=== PATIENT | female | born 1950 | race Caucasian/White ===

== ENCOUNTER → 2016-10-27 | Outpatient (CLI) | payer OTHER, BC | LOC: FIMAGING 09:07 | PROVIDERS: ATTEND Internal Medicine | DX: Z12.31 Encounter for screening mammogram for malignant neoplasm of breast (principal) | CPT/HCPCS: G0202 ==

== ENCOUNTER 2017-04-25 16:52 | Inpatient (IN) | payer OTHER, BC ==
[2017-04-25] MEDS ORDERED: fentaNYL 100 MCG/2 ML INJ IVP ONE (16:59)
[2017-04-25] MEDS ORDERED: NS 1,000 ML IV ONE (16:59)
--- NOTE | 2017-04-25 17:05 | EDPHY ---
H & P Time Seen by Provider: 04/25/17 17:04 HPI/ROS: CHIEF COMPLAINT: Right hip pain following mechanical fall HISTORY OF PRESENT ILLNESS: The patient is brought in by paramedics after she sustained a right hip pain following a mechanical fall. She was accidentally knocked over by a horse. She landed squarely on her right hip. She did not strike her head or lose consciousness. She reportedly had a crawl approximately 0.25 mi to contact help. The patient received fentanyl in route by paramedics. She presents to the ED with complaints of 8/10 right hip pain. The patient denies associated numbness or weakness. The patient denies recent illness. She does have a history of aortic valve and mitral valve replacement. The patient has a history of lupus. She is not anticoagulated. REVIEW OF SYSTEMS: A comprehensive 10 point review of systems is otherwise negative aside from elements mentioned in the history of present illness. Source: Patient Exam Limitations: No limitations - Personal History Tetanus Vaccine Date: - Medical/Surgical History Hx Asthma: No Hx Chronic Respiratory Disease: Yes Hx Diabetes: No Hx Cardiac Disease: Yes Hx Renal Disease: No Hx Cirrhosis: No Hx Alcoholism: No Hx HIV/AIDS: No Hx Splenectomy or Spleen Trauma: No Other PMH: mitral valve replacement surgery, tricuspid valve replacement, lupus. ,chf, right lung injury in sugery, ulcer - Social History Smoking Status: Never smoked - Physical Exam Exam: General Appearance: Alert, mild distress secondary to pain Head: Atraumatic Eyes: Pupils equal, round, reactive ENT, Mouth: No hemotympanum, no oral trauma Neck: Nontender, trachea midline Respiratory: No chest wall tender, subcutaneous air, lungs clear bilaterally Cardiovascular: Regular rate and rhythm Abdomen: Abdomen is soft and nontender, pelvis stable Skin: No lacerations, No abrasion Back: No midline T/L/S pain Extremities: Right hip held in flexion, shortening appreciated, unable to range her right hip secondary to pain. 2+ dorsalis pedis and posterior tibial pulses appreciated Neurological: 5/5 strength noted throughout the right lower extremity with intact sensation Constitutional: Initial Vital Signs Temperature (C) 36.9 C 04/25/17 17:20 Heart Rate 88 04/25/17 17:20 Respiratory Rate 16 04/25/17 17:20 Blood Pressure 160/84 H 04/25/17 17:20 O2 Sat (%) 95 04/25/17 17:20 O2 Delivery Mode Room Air Allergies/Adverse Reactions: Sulfa (Sulfonamide Antibiotics) Allergy (Intermediate, Verified 02/11/15 11:43) Rash latex Allergy (Verified 09/24/14 18:07) ADHESIVE TAPE Allergy (Intermediate, Uncoded 09/24/14 18:07) Rash Home Medications: Medication Instructions Recorded Cholecalciferol Vit D3 [Vitamin D3 2,000 units PO DAILY 06/24/12 2000 units] Dexlansoprazole [DEXILANT] 60 mg PO DAILY 06/24/12 Estradiol [Vivelle-Dot 0.075MG (*)] 0.075 mg TD SUWE@06/24/12 Herbals/Supplements -Info Only 1 each PO AD 06/24/12 Hydroxychloroquine Sulfate 200 mg PO BID 06/24/12 [Plaquenil 200 mg (*)] cycloSPORINE 0.05% [Restasis Opht 1 drop EACHEYE BID 06/24/12 Drops(*)] Potassium Cl [Klor-Con 20 meq (*)] 20 meq PO BID 11/20/12 Ascorbic Acid [Vitamin C 500 mg 500 mg PO DAILY 09/24/14 (*)] Cyanocobalamin [Vitamin B12 (*)] 1,000 mcg PO DAILY 09/24/14 Estradiol [VAGIFEM] 10 mcg VG SUWE@09/24/14 Fluoxetine HCl [Prozac 40 mg] 40 mg PO DAILY 09/24/14 Furosemide [Lasix 40 MG (*)] 40 mg PO BID 09/24/14 Glucosamine Sulfate [Glucosamine 1,500 mg PO DAILY 09/24/14 Sulfate 500 MG (*)] Aspirin EC [Aspirin EC 81 mg (OTC)] 81 mg PO DAILY 02/11/15 Pregabalin [LYRICA] 100 mg PO DAILY 02/11/15 Medical Decision Making - Diagnostics EKG Interpretation: EKG: Complete interpretation has been separately recorded in the [employer] archive. Summary impression: Ventricularly paced rhythm Imaging Results: Imaging Impressions Chest X-Ray 04/25/17 16:59 Impression: 1. No active cardiopulmonary disease seen. 2. Pacemaker unit and cardiac valves in place. Hip X-Ray 04/25/17 17:00 Impression: 1. Fracture right femoral neck with proximal displacement of the distal component. 2. Mild hip joint space narrowing bilaterally. ED Course/Re-evaluation: ED course The patient presents to the ED with right hip pain following mechanical fall. The patient is noted to have a femoral neck fracture. The patient had an IV established. She received IV fentanyl and 1 mg of IV Ativan. Consultation was made with Dr. Dick Lee from Orthopedic surgery who reviewed the patient's x-rays and plans to take the patient to the operating room at 6:30 p.m. this evening. Consultation was made with Dr. Bubba Suarez at 5:40 p.m.., he will admit the patient to the hospital primarily. Preoperative EKG demonstrates a paced rhythm. Preoperative laboratory studies have been ordered. Chest x-ray as reviewed by myself demonstrates no evidence of acute disease. 6:30 p.m.: The patient will be transferred to the operating room for ORIF under the care of Dr. Lee. Database reviewed: CBC which [place] an [place] [address] likely secondary to demargination from pain. Chemistry panel demonstrates a CO2 of 15 otherwise is within normal limits. Coagulation studies are within normal limits. Differential Diagnosis: Differential diagnosis considered includes hip fracture, pelvic fracture, myofascial strain, pelvic hematoma, arrhythmia - Data Points Medications Given: Discontinued Medications Fentanyl (Sublimaze) 100 mcg IVP EDNOW ONE Stop: 04/25/17 17:00 Last Admin: 04/25/17 17:04 Dose: 100 mcg Sodium Chloride (Ns) 1,000 mls @ 0 mls/hr IV ONCE ONE; Wide Open PRN Reason: Protocol Stop: 04/25/17 17:00 Last Admin: 04/25/17 17:05 Dose: 1,000 mls Lorazepam (Ativan Injection) 1 mg IVP EDNOW ONE Stop: 04/25/17 17:33 Last Admin: 04/25/17 17:41 Dose: 1 mg Departure - Departure Disposition: [facility] Inpatient Acute Clinical Impression: Femoral neck fracture, Lupus, Aortic valve prosthesis present, History of mitral valve prosthesis Condition: Fair
[2017-04-25] MEDS ORDERED: LORazepam 2 MG/ML INJ IVP ONE (17:32)
--- NOTE | 2017-04-25 17:51 | CPEKG ---
Heart Rate: 79 RR Interval: 759 P-R Interval: 280 QRSD Interval: 148 QT Interval: 476 QTC Interval: 546 P [place]: 118 QRS [place]: 261 T Wave [place]: 78 EKG Severity - ABNORMAL ECG - EKG Impression: VENTRICULAR-PACED RHYTHM Electronically Signed By: Kunal Stone 27-Apr-2017 06:15:07
--- NOTE | 2017-04-25 18:33 | SOAPPROG ---
SOAP Progress Note Assessment/Plan: Assessment: Ashely is a pleasant 67 year old female who presents to the ER this afternoon after falling onto her right hip. She presented to the ER via EMT unable to weight bear and complaining of right hip pain. PE: Right leg is shortened TTP overlying the right leg Pain with gentle ROM + log roll Radiographs: AP pelvis shows displaced right femoral neck fracture Plan: Risks, benefits, alternatives to operative and non-operative treatment were discussed with the patient. Patient would like to proceed with surgical intervention. We will obtain medical clearance and patient will be taken to the operating room at its earliest convenience. 04/25/17 18:26 Objective: Vital Signs Temp Pulse Resp BP Pulse Ox 36.9 C 88 16 160/84 H 95 04/25/17 17:20 04/25/17 17:20 04/25/17 17:20 04/25/17 17:20 04/25/17 17:20 ICD10 Worksheet Patient Problems: Problems Problem Status Onset Chest pain Acute
[2017-04-25 18:37] LABS: % IMMATURE GRANULYOCYTES 0.6 % (0.0-1.1); ABSOLUTE IMMATURE GRANULOCYTES 0.08 10^3/uL (0.00-0.10); ADD DIFF? NO; ADD MORPH? NO; ADD SCAN? NO; ATYPICAL LYMPHOCYTE FLAG 0 (0-99); FRAGMENT RBC FLAG 0 (0-99); HEMATOCRIT 41.9 % (38.0-47.0); HEMOGLOBIN 14.4 g/dL (12.6-16.3); LEFT SHIFT FLG 0 (0-99); LIPEMIA HEMOLYSIS FLAG 90 (0-99); MEAN CELL HEMOGLOBIN CONCENTR. 34.4 g/dL (32.4-36.7); MEAN CELL VOLUME 95.9 fL (81.5-99.8); MEAN PLATELET VOLUME 10.5 fL (8.7-11.7); PLATELET CLUMPS FLAG 20 (0-99); PLATELET COUNT 141 10^3/uL (150-400); RED BLOOD CELL COUNT 4.37 10^6/uL (4.18-5.33); RED CELL DISTRIBUTION WIDTH 12.9 % (11.5-15.2)
[2017-04-25] MEDS ORDERED: LR 1,000 ML IV ONE (18:43)
[2017-04-25 18:48] LABS: INR 1.09 (0.83-1.16); PROTIME(PATIENT) 14.3 SEC (12.0-15.0)
[2017-04-25 18:49] LABS: APTT 25.6 SEC (23.0-38.0)
[2017-04-25] MEDS ORDERED: ceFAZolin 2 GM in NS 100 ML IV ONE (18:49)
[2017-04-25 18:50] LABS: ANION GAP 13 mEq/L (8-16); CALCIUM 8.7 mg/dL (8.5-10.4); CARBON DIOXIDE 15 mEq/l (22-31); CHLORIDE 110 mEq/L (97-110); CREATININE 1.1 mg/dL (0.6-1.0); GLOMERULAR FILTRATION RATE 50; GLUCOSE 111 mg/dL (70-100); POTASSIUM 4.4 mEq/L (3.5-5.2); SODIUM 138 mEq/L (134-144)
--- NOTE | 2017-04-25 18:59 | PDANEPAE ---
ANE History of Present Illness 67 yo for orif hip ANE Past Medical History - Cardiovascular History Hx Hypertension: Yes Hx Arrhythmias: Yes Hx Coronary Artery / Peripheral Vascular Disease: Yes Hx CHF / Valvular Disease: Yes - Pulmonary History Hx Oxygen in Use at Home: Yes O2 in Use at Home (L/minute): 2 Hx Sleep Apnea: Yes Pulmonary History Comment: 2 L AT NIGHT ONLY - Neurologic History Neurologic History Comment: LOWER RIGHT EXTREMITY NEUROPATHY - Endocrine History Hx Diabetes: No - Renal History Hx Renal Disorders: No - Liver History Hx Hepatic Disorders: No - Neurological & Psychiatric Hx Hx Neurological and Psychiatric Disorders: No - Cancer History Hx Cancer: No - Congenital Disorder History Hx Congenital Disorders: No - GI History Hx Gastrointestinal Disorders: Yes Gastrointestinal History Comment: CONSTIPATION, COLONOSCOPY NEGATIVE, GERD - Other Health History Other Health History: LUPUS, REYNAULD'D DX LAVONNE HANDS, SJOGREN'S SYNDROME - Chronic Pain History Chronic Pain: Yes (LUPUS) - Surgical History Prior Surgeries: PACER, HYSTERECTOMY, APPENDECTOMY, MITRAL VALVE AND TRICUSPID VALVE. ANE Review of Systems Review of Systems: - Exercise capacity METS (RN): 4 METS - Pacemaker Date Pacemaker Last Checked: 05/24/12 ANE Patient History - Allergies Allergies/Adverse Reactions: Sulfa (Sulfonamide Antibiotics) Allergy (Intermediate, Verified 02/11/15 11:43) Rash latex Allergy (Verified 09/24/14 18:07) ADHESIVE TAPE Allergy (Intermediate, Uncoded 09/24/14 18:07) Rash - Home Medications Home medications: home medication list seen and reviewed Home Medications: Cholecalciferol Vit D3 [Vitamin D3 2000 units] 2,000 units PO DAILY 06/24/12 [ Last Taken 02/10/15] Dexlansoprazole [DEXILANT] 60 mg PO DAILY 06/24/12 [Last Taken 02/10/15] Estradiol [Vivelle-Dot 0.075MG (*)] 0.075 mg TD SUWE@06/24/12 [Last Taken ] Herbals/Supplements -Info Only 1 each PO AD 06/24/12 [Last Taken 02/10/15] Hydroxychloroquine Sulfate [Plaquenil 200 mg (*)] 200 mg PO BID 06/24/12 [Last Taken 02/10/15] cycloSPORINE 0.05% [Restasis Opht Drops(*)] 1 drop EACHEYE BID 06/24/12 [Last Taken 02/10/15] Potassium Cl [Klor-Con 20 meq (*)] 20 meq PO BID 11/20/12 [Last Taken 02/10/15] Ascorbic Acid [Vitamin C 500 mg (*)] 500 mg PO DAILY 09/24/14 [Last Taken ] Cyanocobalamin [Vitamin B12 (*)] 1,000 mcg PO DAILY 09/24/14 [Last Taken ] Estradiol [VAGIFEM] 10 mcg VG SUWE@09/24/14 [Last Taken 02/10/15] Fluoxetine HCl [Prozac 40 mg] 40 mg PO DAILY 09/24/14 [Last Taken 02/10/15] Furosemide [Lasix 40 MG (*)] 40 mg PO BID 09/24/14 [Last Taken 02/10/15] Glucosamine Sulfate [Glucosamine Sulfate 500 MG (*)] 1,500 mg PO DAILY 09/24/14 [Last Taken 02/10/15] Aspirin EC [Aspirin EC 81 mg (OTC)] 81 mg PO DAILY 02/11/15 [Last Taken 02/10/15 ] Pregabalin [LYRICA] 100 mg PO DAILY 02/11/15 [Last Taken 02/10/15] - NPO status NPO Status: no food or drink >8 hours - Smoking Hx Smoking Status: Never smoked ANE Labs/Vital Signs - Labs Result Diagrams: 04/25/17 18:28 04/25/17 18:28 - Vital Signs Blood Pressure: 138/74 Heart Rate: 82 Respiratory Rate: 16 O2 Sat (%): 97 Height: 5 ft 2 in Weight: 56.699 kg ANE Physical Exam - Airway Neck exam: FROM Mallampati Score: Class 3 Mouth exam: normal dental/mouth exam - Pulmonary Pulmonary: no respiratory distress - Cardiovascular Cardiovascular: regular rate and rhythym - ASA Status ASA Status: III ANE Anesthesia Plan Anesthesia Plan: general endotracheal anesthesia
[2017-04-25] MEDS ORDERED: ceFAZolin 2 GM/SWFI 2 GM/20 ML SYR IVP ONE (19:00)
[2017-04-25] MEDS ORDERED: fentaNYL 250 MCG/5 ML INJ ONE (19:06)
[2017-04-25] MEDS ORDERED: PROPOFOL/EMULSION 500 MG/50 ML BOTTLE IV ONE (19:06)
--- NOTE | 2017-04-25 20:22 | GHP ---
[f rep st] HISTORY AND PHYSICAL DATE OF ADMISSION: 04/25/2017 CHIEF COMPLAINT: Fall with right hip fracture. HISTORY OF PRESENT ILLNESS: This is a 67-year-old female, who was feeding her horses when 1 whipped around and through her to the ground landing on her right hip. She was unable to bear weight on her leg afterwards. She does have a fracture there and is going in for an ORIF momentarily. The patient was in her usual state of health. There have been no acute issues. She denies any fevers or chills . She does have an extensive cardiac history, with a mitral valve and tricuspid valve replacement. 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 She also has a history of congestive heart failure and stage II kidney disease. She states that she does get some chest pain w hen she lifts heavy objects. She gets some shortness of breath going up stairs, but she is able to g o up stairs. She did have an angiogram done several years ago that was negative for any coronary dis ease. She denies any peripheral edema. No PND, orthopnea. She does use oxygen at night. She also has a history of lupus, and does get flares up from time to time. She takes prednisone for those flares and the last 1 being about 3 months ago. REVIEW OF SYSTEMS: A 10-point review of systems was obtained and other than stated above was negativ e. PAST MEDICAL HISTORY: 1. Status post mitral valve and tricuspid valve replacement. 2. Pacemaker placement. 3. CHF. The last echocardiogram that in 2014 showed an EF of 55% to 60%. She does usually sees a c ardiologist at [facility]. She also sees Dr. Aden. 4. Lupus. 5. Hypertension. 6. Right lower extremity neuropathy. 7. Stage II chronic kidney disease for which she sees Dr. Galvin. 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 Lives [place] in [facility]. FAMILY HISTORY: Significant for valvular heart disease. PHYSICAL EXAM: VITAL SIGNS: Afebrile, blood pressure is 138/74, heart rate 82, oxygen saturation 97 % on room air. GENERAL: The patient is well developed, no apparent distress. HEENT: Nonicteric sc lerae. Extraocular muscles intact. There is a slight malar rash. NECK: Supple. No thyromegaly. LUNGS: Good effort. Clear to auscultation bilaterally. CARDIOVASCULAR: Regular rate and rhythm. There is a 2/6 systolic murmur heard best at the left lower sternal border. ABDOMEN: Positive bowel sounds. Soft, nontender, nondistended. No hepatosplenomegaly. EXTREMITIES: No edema. Right leg is shortened and externally rotated. NEUROLOGIC: Alert and oriented x3. PSYCH: Normal affect. LABS: White blood cell count slightly elevated at 14, hemoglobin 14, platelets 141, creatinine is 1. 1. EKG personally reviewed and interpreted, shows ventricularly paced rhythm. Chest x-ray personally re viewed and interpreted, does not show any acute. ASSESSMENT: This is a 67-year-old female presenting with mechanical fall and right hip fracture. 1. Right hip fracture. The patient can proceed to surgery. Although she is higher than average ris k she is medically optimized and there is nothing else we would necessarily do. She is not in any ov ert heart failure. We will continue to watch closely postoperatively. 2. History of mitral valve and tricuspid valve replacement with congestive heart failure. We can se e there is an echo done at Dr. Aden's office recently. September repeat 1, although she does not have significant symptoms of congestive heart failure currently. She was on fairly large doses of diureti cs though. We will have to restart those fairly soon postoperatively. 3. History of lupus with chronic steroid usage. Consider stress dose steroids during the operation. Would probably not continue this afterwards. 4. Stage II chronic kidney disease. This is stable. 5. Deep venous thrombosis prophylaxis. Would start this tomorrow if okay with Surgery. /[id number]/MODL
[2017-04-25] MEDS ORDERED: PROPOFOL 200 MG/20 ML VIAL ONE (20:54)
[2017-04-25] MEDS ORDERED: ONDANSETRON 4 MG/2 ML VIAL IVP PRN ×2 (21:18→21:50)
[2017-04-25] MEDS ORDERED: fentaNYL 100 MCG/2 ML INJ IVP PRN (21:18)
[2017-04-25] MEDS ORDERED: NALOXONE HCL 0.4 MG/ML INJ IVP PRN (21:18)
[2017-04-25] MEDS ORDERED: SUGAMMADEX SODIUM 500 MG/5 ML VIAL IVP ONE (21:20)
[2017-04-25] MEDS ORDERED: LIDOCAINE 0.5% 50 ML SDV ONE (21:35)
[2017-04-25] MEDS ORDERED: BUPIVACAINE 0.5% 30 ML SDV ONE (21:35)
[2017-04-25] MEDS ORDERED: HYDROmorphone HCL/NS/PF 0.4 MG/2 ML SYR IVP PRN (21:50)
[2017-04-25] MEDS ORDERED: ONDANSETRON DISINTEGRATING 4 MG TAB PO PRN (21:50)
--- NOTE | 2017-04-25 22:14 | POSTANESTH ---
Post Anesthetic Evaluation Cardiovascular Status: Normal, Stable Respiratory Status: Normal, Stable Level of Consciousness/Mental Status: Can Participate in Eval Pain Control: Adequate, Prn Tx Ordered Nausea/Vomiting Control: Adequate, Prn Tx Ordered Complications Possibly Related to Anesthesia: None Noted
--- NOTE | 2017-04-25 22:53 | POSTOPPROG ---
Post Op Note Date of Operation: 04/25/17 Surgeon: Dick Lee Sinter Feeder: Paradise Rose PA-C Anesthesia: GET(General Endotracheal) Pre-op Diagnosis: right femoral neck fracture Post-op Diagnosis: right femoral neck fracture Procedure: right hip hemiarthroplasty Inf/Abcess present in the surg proc area at time of surgery?: No Depth: Deep Incisional (Fascial) EBL: 50-100
--- NOTE | 2017-04-25 22:59 | SOAPPROG ---
SOAP Progress Note Assessment/Plan: Assessment: Ashley is a pleasant 67 year old female now POD #0 from right hip hemiarthroplasty PE: Dressing clean and dry NV intact RLE Plan: 1. WBAT RLE with assistance 2. Posterior hip precautions. Abduction wedge to be in place while in bed 3. PT/OT for gait training, strengthening 4. Ancef x 2 doses 5. Reinforce dressing if needed 6. Patient will be admitted to hospitalist for medical management Objective: Vital Signs Temp Pulse Resp BP Pulse Ox 36.3 C 82 16 134/79 H 96 04/25/17 22:30 04/25/17 18:59 04/25/17 22:30 04/25/17 22:30 04/25/17 22:30 Laboratory Results 04/25/17 18:28 04/25/17 18:28 04/24/17 04/25/17 04/26/17 05:59 05:59 05:59 Intake Total 1775 Output Total 350 Balance 1425 PT 14.3 SEC (12.0-15.0) 04/25/17 18:28 INR 1.09 (0.83-1.16) 04/25/17 18:28 ICD10 Worksheet Patient Problems: Problems Problem Status Onset Aortic valve prosthesis present Acute Femoral neck fracture Acute History of mitral valve prosthesis Acute Lupus Acute Chest pain Acute
[2017-04-26] MEDS: HEPARIN 5,000 UNIT/0.5 ML SYR SC SCH ×3 (00:06→17:04)
[2017-04-26] MEDS: ceFAZolin 2 GM/DEXTROSE 100 ML IV SCH ×3 (00:14→12:30)
[2017-04-26 04:54] LABS: HEMOGLOBIN 12.3 g/dL (12.6-16.3)
--- NOTE | 2017-04-26 06:56 | GCON ---
[f rep st] CONSULTATION ORTHOPEDIC SURGERY CONSULTATION. DATE OF CONSULTATION: 04/26/2017 PREOPERATIVE DIAGNOSIS: Right hip femoral neck fracture. HISTORY OF PRESENT ILLNESS: This is a very pleasant 67-year-old female who sustained a fall earlier today and landed on her right hip. She was brought to the [facility] emergency department where she w as found to have a right hip femoral neck fracture which was completely displaced. ASSESSMENT AND PLAN: A 67-year-old female with a right femoral neck fracture, completely displaced. As such, we discussed the risks, benefits, risk of complications of both nonoperative and operative intervention. The patient fully understood the risks, benefits, alternatives, complications moving f orward with her treatment and wished to proceed with operative intervention in the form of right hip hemiarthroplasty. She signed informed consent for surgery and she will be taken to the operating hernandez m as soon as the OR is available. /[id number]/MODL
--- NOTE | 2017-04-26 07:11 | GOP ---
[f rep st] OPERATIVE REPORT PATIENT: KRISTIE TOBIAS DATE OF SERVICE: 04/25/17 PATIENT DATE OF : 1950 SURGEON: Dick Lee M.D. SKIDWAY WORKER: Paradise Rose PA-C Mrs. Cook assistance was medically necessary for patient positioning and the retraction of vital structures. ANESTHESIA: General PRE-OPERATIVE DIAGNOSES: Right femoral neck fracture (ICD-10 code S72.009A femoral neck fracture) POST-OPERATIVE DIAGNOSES: Right femoral neck fracture (ICD-10 code S72.009A femoral neck fracture) OPERATIVE PROCEDURES: CPT code 93098 - Right hip hemiarthroplasty EBL: 20cc COMPLICATIONS: None IMPLANTS: Styker Omnifit HFx 132 degree angle femoral stem, size # 5 , Unitrax head, 49 mm outer diameter, +0 mm neck adjustment sleeve, two packets of 40gram bone cement BRIEF CLINICAL NOTE: This is a very pleasant 67 old female with a significant history for a right femoral neck fracture (complete and displaced). As such, I discussed the risks, benefits, alternatives, and complications associated with both non-operative (specifically, observation.) and operative (specifically, right hip adriana-arthroplasty) forms of treatment. The patient fully understood the risks, benefits, alternatives, and complications associated with both forms of treatment and wished to proceed with operative intervention as outlined above. The patient has signed the informed consent form for surgery DESCRIPTION OF PROCEDURE: On the day of surgery, all the patient's questions were answered and the patient was transferred from the pre-operative holding area to the operating room where a formal Time out procedure was performed. The patient was identified by name, medical record number, social security number and date of . The patient's right lower extremity was identified as the correct extremity for surgery, with the right hip being identified as the correct portion of that extremity for the surgery. The anesthesia team then administered pre-operative antibiotics for prophylaxis. The patient was then placed into the lateral decubitus position with the operative side facing up. The lower extremity was then prepped and draped in the normal sterile fashion. A sterile marking pen was then utilized to bret out a standard posterolateral hip incision in line with the posterior one-third of the greater trochanter of the femur. Following this, a #10 blade was then used to incise the skin. Meticulous hemostasis was obtained in the subcutaneous plane utilizing Bovie cautery. The incision was then carried down to the level of the IT band and the fascia overlying the gluteus lexi. The IT band was then split longitudinally and this fascial incision was then carried in line with the fibers of the gluteus lexi muscle more proximally. The Charnley [place] retractor was then inserted underneath the level of the fascia only taking great care to protect the sciatic nerve. The femur was then internally rotated to put the short external rotators onto maximal stretch. The short external rotators were then released off of the posterior aspect of the greater trochanter. These were tagged along with the hip capsule for later repair utilizing a #2 Fiber Wire sutures. A cobra retractor was then inserted immediately inferior to the lesser trochanter and a Hohmann retractor was inserted over the superior aspect of the remaining femoral neck just proximal to the hip abductors. This allowed for excellent visualization of the fracture as well as the residual head and neck segment, which remained within the acetabulum. The head and neck segment was then removed utilizing a Somers elevator and tenaculum clamp. The head was then measured on the back table. The acetabulum was then inspected and cleaned of all soft tissue debris. The acetabulum appeared to be in excellent condition with no evidence of significant arthritis. The cutting guide for Omnifit HFx 132 degree angle stem was then applied to the remaining femoral neck the angle for the neck cut was marked with bovie cautery. Following this, a sagittal saw was then utilized to make the femoral neck cuts. Next, the hip skid retractor was inserted underneath the remaining femoral neck and the box osteotome was utilized to make space along the lateral aspect of the femoral canal proximally. Next, the starting reamer was utilized to enter the intramedullary canal and the lateralizing reamer was utilized to remove residual bone along the medial aspect of the greater trochanter. Next, the canal was reamed up to a size five reamer. We then began broaching broached up to an equivalent size broach for a cemented stem. The last broach provided for excellent rotational control inside of the proximal femoral metaphysis. In addition, the final broach allowed for a slight increase in the patient's normal anteversion. With the final size broach in place, a +0-mm neck and a 49 -mm head was applied for trialing purposes. Trialing in the position of sleep and with the hip in 90 degrees of flexion and the knee in 90 degrees of flexion with increasing amounts of internal rotation both demonstrated excellent stability. In addition, the shuck test demonstrated minimal inferior translation and trialing with the hip in full extension and the knee in 90 degrees of flexion demonstrated minimal tension on the quadriceps. Following these trialing maneuvers, a PA pelvis radiograph was obtained to assess for leg length. This radiograph demonstrated excellent approximation of leg length equivalent to the contralateral side based on measuring from the lesser trochanter. As such, the size five stem was selected with a +0 -mm neck and a 49 -mm diameter head. Next, the intramedullary canal was measured for correct sizing of the distal centralizer. The appropriately sized cement restrictor was then inserted into the intramedullary canal at a depth of 2 cm distal to the anticipated position of the stem tip. Following this, the canal was then copiously irrigated with sterile normal saline mixed with bacitracin. The canal was then cleaned and dried with vaginal tapes. During this time, two bags of 40gram bone cement were mixed. The cement was then injected in a retrograde fashion with pressurization. With the canal completely full of cement, the prosthesis was then inserted into the canal maintaining the anteversion which had been created with broaching. The prosthesis was held in place until the cement was completely hardened. All excess cement was removed from surrounding the prosthesis. Following this, the head was then impacted onto the Ramon taper. The hip was then reduced and once again trialed. Final trialing on the table demonstrated excellent stability and range of motion in all positions. Following this, the wound was then copiously irrigated with sterile normal saline. A 2.5-mm drill was then utilized to drill two holes through the posterior aspect of the greater trochanter. The suture previously used to tag the short external rotators and posterior hip capsule were then passed through these two drill holes and tied over a bone bridge along the posterolateral aspect of the greater trochanter. This provided for an excellent repair of the short external rotators, as well as the posterior hip capsule. The wound was then once again copiously irrigated with sterile normal saline, and the fascial plane was then re-approximated utilizing 0 Vicryl sutures. Following this, the subcutaneous plane was re-approximated with buried interrupted 2-0 Vicryl sutures and the the skin was closed with surgical jesus. The skin was cleaned with sterile normal saline and dried. A Xeroform gauze dressing was then applied, followed by a dry sterile dressing, followed by Ioban. Following this, the patient was then placed into an abduction wedge splint and was then transferred from the operating room table to the postoperative gurney and transferred from the operating room to the post-anesthesia care unit in stable condition. In PACU, a PA pelvis radiograph was obtained which demonstrated a concentrically reduced right hip adriaan-arthroplasty with excellent positioning of the all components and a uniform cement mantle. In addition, leg length appeared equivalent to the contralateral side. POSTOPERATIVE PLAN: The patient will remain in the abduction wedge anytime while in bed. The patient will be WBAT on the right lower extremity with posterior hip precautions. Therapy will begin tomorrow to encourage early mobilization following surgery. /[id number]/MODL MTDD
[2017-04-26] MEDS: oxyCODONE IR 5 MG TAB PO PRN ×3 (08:18→16:15)
--- NOTE | 2017-04-26 11:31 | ASMTCMCOM ---
FAUSTINO Note FAUSTINO Note Notes: Pt is post op day#1 after R hip hemiarthroplasty. Met w/pt and she is anticipating having HHC for PT initially. She lives up [facility] with her . She thought she had [facility] 4years ago after O[facility] but I spoke w/[facility] and they did not have records of having her as pt. However, they will see if they can service her in that area and get back to us. Our records from November 2012 show that she went home w/[facility] but I spoke w/them and they did not have records of having her as pt. PT recommendation pending. If pt needs home PT and [facility] cannot service her area will have to look for other HHC. FAUSTINO w/f. Date Signed: 04/26/2017 11:31 AM Electronically Signed By:Ema Li RN
--- NOTE | 2017-04-26 12:16 | PDMN ---
Medical Necessity Medical necessity: est los>2mn for r hip femoral neck fx r/t mechanical fall, requiring [id number] comorbid lupus on chronic steroid use, CKD, hx MVR, TVR; per order and H&P 04/25/17
--- NOTE | 2017-04-26 15:59 | HOSPPROG ---
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 pain: OK add scheduled tylenol prn narcotics add celebrex valvular heart disease: bioprosthetic valves restart lasix lupus: continue plaquenil proph: change to lmwh diispo: inpt Subjective: pain OK Objective: Vital Signs Temp Pulse Resp BP Pulse Ox 36.6 C 87 16 121/65 H 90 L 04/26/17 11:36 04/26/17 11:36 04/26/17 11:36 04/26/17 11:36 04/26/17 11:36 Laboratory Results 04/26/17 04:15 04/25/17 18:28 04/25/17 04/26/17 04/27/17 05:59 05:59 05:59 Intake Total 1875 Output Total 625 Balance 1250 PT 14.3 SEC (12.0-15.0) 04/25/17 18:28 INR 1.09 (0.83-1.16) 04/25/17 18:28 - Physical Exam Constitutional: no apparent distress, appears nourished Eyes: PERRL, anicteric sclera Ears, Nose, Mouth, Throat: moist mucous membranes, hearing normal Cardiovascular: regular rate and rhythym, no murmur, rub, or gallop Respiratory: no respiratory distress, no rales or rhonchi Gastrointestinal: normoactive bowel sounds, soft, non-tender abdomen Genitourinary: no bladder fullness, No davidson in urethra Skin: warm, normal color Musculoskeletal: full muscle strength, other (R thigh no hematoma) Neurologic: AAOx3, sensation intact bilaterally ICD10 Worksheet Patient Problems: Problems Problem Status Onset Aortic valve prosthesis present Acute Femoral neck fracture Acute History of mitral valve prosthesis Acute Lupus Acute Chest pain Acute
[2017-04-26] MEDS ORDERED: ZOLPIDEM TARTRATE 5 MG TAB PO PRN (16:10)
[2017-04-26] MEDS: ENOXAPARIN 40 MG/0.4 ML SYR SC SCH (16:14)
[2017-04-26] MEDS: ACETAMINOPHEN 500 MG TAB PO SCH ×2 (16:15→20:38)
[2017-04-26] MEDS: FUROSEMIDE 40 MG TAB PO SCH (17:31)
--- NOTE | 2017-04-26 17:33 | ASMTCMCOM ---
CM Note CM Note Notes: PT is recommending C and she may possibly need OT as well. CM unable to find agency today who would go up to [facility] where pt lives. The following agencies said they cannot provide service: Saad Jordan [facility], [facility], [facility], [facility], [facility], [facility], [facility]. CM will continue tomorrow to try to find agency. Date Signed: 04/26/2017 05:33 PM Electronically Signed By:Ema Li RN
--- NOTE | 2017-04-26 17:37 | ASMTCMCOM ---
CM Note CM Note Notes: Also heard back from Byron at [facility]- they are also unable to accept b/c of location of this pt's residence. Date Signed: 04/26/2017 05:36 PM Electronically Signed By:Ema Li RN
[2017-04-26] MEDS ORDERED: POTASSIUM CL 20 MEQ TAB PO SCH (18:00)
[2017-04-26] MEDS: HYDROXYCHLOROQUINE SULFATE 200 MG TAB PO SCH (20:38)
[2017-04-26] MEDS: cycloSPORINE 0.05% 30 DROPERETTE/BOX EACHEYE SCH (20:39)
[2017-04-27 04:39] VITALS: TEMP 97.8
[2017-04-27] MEDS: ACETAMINOPHEN 500 MG TAB PO SCH (05:21)
[2017-04-27 07:22] VITALS: BP 124/65; PULSE 74; RESP 15; O2SAT 100
[2017-04-27] MEDS ORDERED: ASPIRIN EC 81 MG TAB PO SCH (08:00)
--- NOTE | 2017-04-27 08:25 | SOAPPROG ---
CHARLIE Progress Note Assessment/Plan: Assessment: Ashley is a pleasant 67 year old female now POD #2 from right hip hemiarthroplasty. She is doing very well and is having minimal pain. She has been up with physical therapy multiple times and is able to ambulate with the walker PE: Dressing clean and dry NV intact RLE No pain with calf compression DF, PF intact Plan: 1. WBAT RLE with assistance 2. Posterior hip precautions. Abduction wedge to be in place while in bed. We can transition her to a smaller abduction wedge 3. PT/OT for gait training, strengthening 4. Reinforce dressing if needed. Keep dressing clean and dry 5. Prescription for pain medication in patient chart 6. Plan for discharge back home with home therapy. Follow up with Dr. Lee's office in 2 weeks for repeat radiographs, wound check, and staple removal. 04/27/17 08:23 Objective: Vital Signs Temp Pulse Resp BP Pulse Ox 36.6 C 74 15 124/65 H 100 04/27/17 07:21 04/27/17 07:21 04/27/17 07:21 04/27/17 07:21 04/27/17 07:21 Laboratory Results 04/26/17 04:15 04/25/17 18:28 04/26/17 04/27/17 04/28/17 05:59 05:59 05:59 Intake Total 1875 300 Output Total 625 Balance 1250 300 PT 14.3 SEC (12.0-15.0) 04/25/17 18:28 INR 1.09 (0.83-1.16) 04/25/17 18:28 ICD10 Worksheet Patient Problems: Problems Problem Status Onset Aortic valve prosthesis present Acute Chest pain Acute Femoral neck fracture Acute History of mitral valve prosthesis Acute Lupus Acute
[2017-04-27] MEDS: HYDROXYCHLOROQUINE SULFATE 200 MG TAB PO SCH (08:58)
[2017-04-27] MEDS: FUROSEMIDE 40 MG TAB PO SCH (09:00)
[2017-04-27] MEDS ORDERED: CHOLECALCIFEROL VIT D3 2,000 UNITS TAB/CAP PO SCH (09:00)
[2017-04-27] MEDS ORDERED: GLUCOSAMINE SULF 500 MG CAP PO SCH (09:00)
[2017-04-27] MEDS ORDERED: FLUoxetine 20 MG CAP PO SCH (09:00)
[2017-04-27] MEDS ORDERED: ASCORBIC ACID 500 MG TAB PO SCH (09:00)
[2017-04-27] MEDS ORDERED: LISINOPRIL 5 MG TAB PO SCH (09:00)
[2017-04-27] MEDS ORDERED: CYANO/VITAMIN B12 1000 MCG TAB PO SCH (09:00)
[2017-04-27] MEDS: cycloSPORINE 0.05% 30 DROPERETTE/BOX EACHEYE SCH (09:03)
[2017-04-27] MEDS: ENOXAPARIN 40 MG/0.4 ML SYR SC SCH (09:03)
--- NOTE | 2017-04-27 09:22 | HOSPPROG ---
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 pain ok Objective: Vital Signs Temp Pulse Resp BP Pulse Ox 36.6 C 74 15 124/65 H 100 04/27/17 07:21 04/27/17 07:21 04/27/17 07:21 04/27/17 09:00 04/27/17 07:21 Laboratory Results 04/26/17 04:15 04/25/17 18:28 04/26/17 04/27/17 04/28/17 05:59 05:59 05:59 Intake Total 1875 300 Output Total 625 Balance 1250 300 PT 14.3 SEC (12.0-15.0) 04/25/17 18:28 INR 1.09 (0.83-1.16) 04/25/17 18:28 - Physical Exam Constitutional: no apparent distress, appears nourished Eyes: PERRL, anicteric sclera Ears, Nose, Mouth, Throat: moist mucous membranes, hearing normal Cardiovascular: regular rate and rhythym, no murmur, rub, or gallop Respiratory: no respiratory distress, no rales or rhonchi Gastrointestinal: normoactive bowel sounds, soft, non-tender abdomen Genitourinary: No davidson in urethra Skin: warm, normal color Musculoskeletal: full muscle strength Neurologic: AAOx3 ICD10 Worksheet Patient Problems: Problems Problem Status Onset Aortic valve prosthesis present Acute Femoral neck fracture Acute History of mitral valve prosthesis Acute Lupus Acute Chest pain Acute
--- NOTE | 2017-04-27 10:11 | PDIAF ---
- Diagnosis Diagnosis: hip fracture Code Status: Full Code - Medication Management Discharge Medications: Medications to Continue on Transfer Cholecalciferol Vit D3 [Vitamin D3 2000 units] 2,000 units PO DAILY 06/24/12 [ Last Taken 04/25/17] Estradiol [Vivelle-Dot 0.075MG (*)] 0.075 mg TD SUWE@06/24/12 [Last Taken ] Herbals/Supplements -Info Only 1 each PO AD 06/24/12 [Last Taken 02/10/15] Hydroxychloroquine Sulfate [Plaquenil 200 mg (*)] 200 mg PO BID 06/24/12 [Last Taken 04/25/17 09:00] cycloSPORINE 0.05% [Restasis Opht Drops(*)] 1 drop EACHEYE BID 06/24/12 [Last Taken 04/25/17 09:00] Potassium Cl [Klor-Con 20 meq (*)] 20 meq PO DAILY18 11/20/12 [Last Taken ] Ascorbic Acid [Vitamin C 500 mg (*)] 500 mg PO DAILY 09/24/14 [Last Taken ] Cyanocobalamin [Vitamin B12 (*)] 1,000 mcg PO DAILY 09/24/14 [Last Taken ] Estradiol [VAGIFEM] 10 mcg VG SUWE@09/24/14 [Last Taken 04/25/17] Fluoxetine HCl [Prozac 40 mg] 40 mg PO DAILY 09/24/14 [Last Taken 04/25/17] Furosemide [Lasix 40 MG (*)] 40 mg PO BID@09/24/14 [Last Taken 04/25/17 09 :00] Glucosamine Sulfate [Glucosamine Sulfate 500 MG (*)] 1,500 mg PO DAILY 09/24/14 [Last Taken 04/25/17] Aspirin EC [Aspirin EC 81 mg (*)] 81 mg PO MWF 02/11/15 [Last Taken 04/25/17] Lisinopril [Zestril 2.5 mg (*)] 2.5 mg PO DAILY 04/26/17 [Last Taken 04/25/17] Acetaminophen [Tylenol ES 500 mg (*)] 1,000 mg PO Q8 tab 04/27/17 [Last Taken Unknown] Enoxaparin [Lovenox 40 MG (*)] 40 mg SC DAILY #28 syr 04/27/17 [Last Taken Unknown] oxyCODONE IR [Oxycodone Ir (*)] 5 - 10 mg PO Q4HRS PRN #24 tab 04/27/17 [Last Taken Unknown] Discharge Medications: Refer to the Discharge Home Medication list for PRN reason. - Orders Services needed: Home Care, Physical Therapy, Occupational Therapy Home Care Face to Face: I certify that this patient was under my care and that I had the required [id number] encounter meeting the encounter requirements on the discharge day. My findings support the fact that the patient is homebound as defined in Home Care Face to Face Continued: CMS Chapter 7 Medicare Benefits Manual 30.1.1 , The condition of the patient is such that there exists a normal inability to leave home and consequently, leaving home would require a considerable and taxing effort. - Follow Up Care Current Providers and Referrals: Dick Lee MD [Medical Doctor] - Patient,NotPresent [Unknown] - As per Instructions
--- NOTE | 2017-04-27 10:25 | GDS ---
[f rep st] DISCHARGE SUMMARY DISCHARGE DIAGNOSES: 1. Right femoral neck fracture. 2. History of mitral and tricuspid valve replacement. 3. Pacemaker placement. 4. Valvular congestive heart failure. 5. Lupus, mainly rash and joint pain. Please see admission history and physical by Dr. Dionne Suarez. Patient presented with a fall secondary to riding a horse. She underwent operative repair. She is a fit and strong relatively young woman s o she has done well with physical and occupational therapy. She is discharged home today. She was g tierra 28 days Lovenox and prescription for oxycodone and I have recommended for scheduled Tylenol and MiraLAX. /[id number]/MODL
[2017-04-27] MEDS: oxyCODONE IR 5 MG TAB PO PRN (10:48)
--- NOTE | 2017-04-27 12:12 | ASDISCHSUM ---
Discharge Information Plan Status:Home with Home Health Medically Cleared to Leave:04/26/2017 Discharge Date:04/26/2017 CM D/C Disposition:Home Health Service ADT D/C Disposition: Projected Discharge Date:04/27/2017 11:00 AM Transportation at D/C:Family Discharge Delay Reason: Follow-Up Date:04/27/2017 11:00 AM Discharge Slot: Final Diagnosis: Placement Information Referral Type:*Home Health Care Services Referral ID:[id number] Provider Name:[facility] Address 1:[address] [address] Address 2: City:[place] Selection Factors: State:[place] Patient Contact Information Contact Name:RAFAT Relationship: Address:[address] City:[facility] Phone: State/Zip Code:[place] [address] Email: Financial Information Financial Class: Primary Plan Desc:MEDICARE INPATIENT Primary Plan Number:[id number] Secondary Plan Desc:[facility] Secondary Plan Number:[id number] Assessment Information [facility] CM Progress Note CM Note CM Note Notes: Pt is post op day#1 after R hip hemiarthroplasty. Met w/pt and she is anticipating having HHC for PT initially. She lives up [facility] with her . She thought she had [facility] 4years ago after OHS but I spoke w/Tresa and they did not have records of having her as pt. However, they will see if they can service her in that area and get back to us. Our records from November 2012 show that she went home w/[facility] but I spoke w/brittany and they did not have records of having her as pt. PT recommendation pending. If pt needs home PT and [facility] cannot service her area will have to look for other HHC. CM w/f. Date Signed: 04/26/2017 11:31 AM Electronically Signed By:Ema Li RN [facility] CM Progress Note CM Note CM Note Notes: PT is recommending [facility] and she may possibly need OT as well. CM unable to find agency today who would go up to [facility] where pt lives. The following agencies said they cannot provide service: [facility]ad Jordan [facility], [facility], [facility], [facility], [facility], [facility], [facility]. CM will continue tomorrow to try to find agency. Date Signed: 04/26/2017 05:33 PM Electronically Signed By:Ema Li RN [facility] CM Progress Note CM Note CM Note Notes: Also heard back from Byron at [facility]- they are also unable to accept b/c of location of this pt's residence. Date Signed: 04/26/2017 05:36 PM Electronically Signed By:Ema Li RN Intervention Information Intervention Type:*IM-Signed Date of Service:04/27/2017 11:02 AM Patient Type:Inpatient Staff Member:Rosa Melton Hours: Discipline: Severity: Comment:
[2017-04-29] MEDS ORDERED: ESTRADIOL VIVELLE 0.075 MG PATCH TD SCH (09:00)
[2017-04-29] MEDS ORDERED: Estradiol [Vagifem] 10 MCG VG SCH (09:00)
== END 2017-04-27 12:51 | disposition home or self-care (01) | DRG 470 ==
LOC: EDUNIT# → F3N 22:58
PROVIDERS: ADMIT Internal Medicine; ATTEND Internal Medicine
PROC: 0SRR019 Replacement of Right Hip Joint, Femoral Surface with Metal Synthetic Substitute, Cemented, Open Approach (ICD-10-PCS; principal; 2017-04-25 18:30)
DX: S72.001A Fracture of unspecified part of neck of right femur, initial encounter for closed fracture (principal); W55.12XA Struck by horse, initial encounter; Y93.K9 Activity, other involving animal care; Y92.71 Barn as the place of occurrence of the external cause; Y99.8 Other external cause status; I50.9 Heart failure, unspecified; Z95.3 Presence of xenogenic heart valve; Z95.0 Presence of cardiac pacemaker; I12.9 Hypertensive chronic kidney disease with stage 1 through stage 4 chronic kidney disease, or unspecified chronic kidney disease; N18.2 Chronic kidney disease, stage 2 (mild); M32.9 Systemic lupus erythematosus, unspecified
CPT/HCPCS: 96374; 97116-GP; 97161-GP; 97166-GO; 97535-GO; C1713; G8978-GP-CK; G8979-GP-CI; G8980-GP-CI; G8987-GO-CJ; G8988-GO-CI; G8989-GO-CI; J0690; J1650; J2060; J2704; J3010

== ENCOUNTER → 2017-10-12 | Outpatient (CLI) | payer OTHER, BC | LOC: FIMAGING 08:34 | PROVIDERS: ATTEND Internal Medicine Rheumatology | DX: Z13.820 Encounter for screening for osteoporosis (principal); M85.89 Other specified disorders of bone density and structure, multiple sites; Z78.0 Asymptomatic menopausal state ==

== ENCOUNTER → 2017-10-30 | Outpatient (CLI) | payer OTHER, BC | LOC: FIMAGING 08:38 | PROVIDERS: ATTEND Internal Medicine | DX: Z12.31 Encounter for screening mammogram for malignant neoplasm of breast (principal); Z80.3 Family history of malignant neoplasm of breast ==

== ENCOUNTER → 2017-11-13 | Outpatient (CLI) | payer OTHER, BC | LOC: FIMAGING 08:59 | PROVIDERS: ATTEND Internal Medicine | DX: Z03.89 Encounter for observation for other suspected diseases and conditions ruled out (principal); N60.01 Solitary cyst of right breast ==

== ENCOUNTER 2018-03-07 19:24 | Emergency (ER) | payer OTHER, BC ==
[2018-03-07] MEDS ORDERED: NS 1,000 ML IV ONE (19:57)
--- NOTE | 2018-03-07 19:59 | EDPHY ---
H & P Stated Complaint: bladder spasm & R Flank Time Seen by Provider: 03/07/18 19:46 HPI/ROS: CHIEF COMPLAINT: Right flank pain HISTORY OF PRESENT ILLNESS: Patient is a 67-year-old female who comes to the emergency department complaining of right flank pain as well as chills for the last 2 days. No dysuria. She has had increased frequency. She has a history of appendectomy and total hysterectomy. Also history of lupus and mitral tricuspid valve replacement with bovine heart valves. She had some kidney damage with the bypass surgery. No rashes. No chest pain or shortness of breath. No fever. No GI symptoms. Severity: Moderate Modifying factors: None REVIEW OF SYSTEMS: Constitutional: See HPI EENTM: denies: blurred vision, double vision, nose congestion Respiratory: denies: cough, shortness of breath Cardiac: denies: chest pain, irregular heart rate, lightheadedness, palpitations Gastrointestinal/Abdominal: denies: abdominal pain, diarrhea, nausea, vomiting, blood streaked stools Genitourinary: See HPI Musculoskeletal: denies: joint pain, muscle pain Skin: denies: lesions, rash, jaundice, bruising Neurological: denies: headache, numbness, paresthesia, tingling, dizziness, weakness Hematologic/Lymphatic: denies: blood clots, easy bleeding, easy bruising Immunologic/allergic: denies: HIV/AIDS, transplant 10 systems reviewed and negative except as noted EXAM: GENERAL: Well-appearing, well-nourished and in no acute distress. HEAD: Atraumatic, normocephalic. EYES: Pupils equal round and reactive to light, extraocular movements intact, sclera anicteric, conjunctiva are normal. ENT: TMs normal, nares patent, oropharynx clear without exudates. Moist mucous membranes. NECK: Normal range of motion, supple without lymphadenopathy or JVD. LUNGS: Breath sounds clear to auscultation bilaterally and equal. No wheezes rales or rhonchi. HEART: Regular rate and rhythm without murmurs, rubs or gallops. ABDOMEN: Soft, nontender, normoactive bowel sounds. No guarding, no rebound. No masses appreciated. BACK: No CVA tenderness, no spinal tenderness, step-offs or deformities EXTREMITIES: Normal range of motion, no pitting or edema. No clubbing or cyanosis. NEUROLOGICAL: Cranial nerves II through XII grossly intact. Normal speech, normal gait. 5/5 strength, normal movement in all extremities, normal sensation , normal reflexes PSYCH: Normal mood, normal affect. SKIN: Warm, dry, normal turgor, no visible rashes or lesions. Source: Patient Exam Limitations: No limitations - Personal History Current Tetanus/Diphtheria Vaccine: Unsure Current Tetanus Diphtheria and Acellular Pertussis (TDAP): Unsure Tetanus Vaccine Date: - Medical/Surgical History Hx Asthma: No Hx Chronic Respiratory Disease: Yes Hx Diabetes: No Hx Cardiac Disease: Yes Hx Renal Disease: No Hx Cirrhosis: No Hx Alcoholism: No Hx HIV/AIDS: No Hx Splenectomy or Spleen Trauma: No Other PMH: mitral valve replacement surgery, tricuspid valve replacement, lupus. ,chf, right lung injury in sugery, ulcer, stage II kidney disease - Family History Significant Family History: No pertinent family hx - Social History Smoking Status: Never smoked Alcohol Use: Sober Drug Use: None Constitutional: Initial Vital Signs Temperature (C) 37 C 03/07/18 19:26 Heart Rate 93 03/07/18 19:26 Respiratory Rate 16 03/07/18 19:26 Blood Pressure 147/82 H 03/07/18 19:26 O2 Sat (%) 97 03/07/18 19:26 O2 Delivery Mode Room Air Allergies/Adverse Reactions: Sulfa (Sulfonamide Antibiotics) Allergy (Intermediate, Verified 02/11/15 11:43) Rash latex Allergy (Verified 09/24/14 18:07) ADHESIVE TAPE Allergy (Intermediate, Uncoded 09/24/14 18:07) Rash Home Medications: Medication Instructions Recorded Cholecalciferol Vit D3 [Vitamin D3 2,000 units PO DAILY 06/24/12 2000 units] Estradiol [Vivelle-Dot 0.075MG (*)] 0.075 mg TD SUWE@09 06/24/12 Herbals/Supplements -Info Only 1 each PO AD 06/24/12 Hydroxychloroquine Sulfate 200 mg PO BID 06/24/12 [Plaquenil 200 mg (*)] cycloSPORINE 0.05% [Restasis Opht 1 drop EACHEYE BID 06/24/12 Drops(*)] Potassium Cl [Klor-Con 20 meq (*)] 20 meq PO DAILY18 11/20/12 Ascorbic Acid [Vitamin C 500 mg 500 mg PO DAILY 09/24/14 (*)] Cyanocobalamin [Vitamin B12 (*)] 1,000 mcg PO DAILY 09/24/14 Estradiol [VAGIFEM] 10 mcg VG SUWE@09/24/14 Fluoxetine HCl [Prozac 40 mg] 40 mg PO DAILY 09/24/14 Furosemide [Lasix 40 MG (*)] 40 mg PO BID@,09/24/14 Glucosamine Sulfate [Glucosamine 1,500 mg PO DAILY 09/24/14 Sulfate 500 MG (*)] Aspirin EC [Aspirin EC 81 mg (*)] 81 mg PO MWF 02/11/15 Lisinopril [Zestril 2.5 mg (*)] 2.5 mg PO DAILY 04/26/17 Acetaminophen [Tylenol ES 500 mg 1,000 mg PO Q8 tab 04/27/17 (*)] Enoxaparin [Lovenox 40 MG (*)] 40 mg SC DAILY #28 syr 04/27/17 oxyCODONE IR [Oxycodone Ir (*)] 5 - 10 mg PO Q4HRS PRN #24 tab 04/27/17 Cephalexin [Keflex] 500 mg PO TID #30 cap 03/07/18 morphINE IR [morphINE IR 15 mg (*)] 15 mg PO Q3-4PRN PRN #10 tab 03/07/18 Medical Decision Making ED Course/Re-evaluation: Patient has urinary tract infection and likely pyelo. She is not febrile. Her renal function is better than baseline. I will give her dose of Rocephin here in the ER and Keflex take at home. She states that she is not supposed to take NSAIDs or Tylenol. I will give her a short dose of morphine IR. I cautioned her to use it sparingly for a variety of reasons. She and her understand and agree with this plan. We discussed indications for returning to the ER. Differential Diagnosis: Partial list of the Differential diagnosis considered include but were not limited to; urinary tract infection, pyelonephritis and although unlikely based on the history and physical exam, I also considered kidney stone, biliary disease, obstruction. I discussed these differential diagnoses and the plan with the patient as well as the usual and expected course. The patient understands that the diagnosis is provisional and that in medicine we are not always correct and that further workup is often warranted. Usual and customary warnings were given. All of the patient's questions were answered. The patient was instructed to return to the emergency department should the symptoms at all worsen or return, otherwise to followup with the physician as we discussed. - Data Points Laboratory Results: Laboratory Results 03/07/18 19:55 03/07/18 19:55 03/07/18 03/07/18 03/07/18 19:55 19:55 19:55 WBC 6.82 10^3/uL 10^3/uL (3.80-9.50) RBC 5.06 10^6/uL 10^6/uL (4.18-5.33) Hgb 16.0 g/dL g/dL (12.6-16.3) Hct 48.6 % H % (38.0-47.0) MCV 96.0 fL fL (81.5-99.8) MCH 31.6 pg pg (27.9-34.1) MCHC 32.9 g/dL g/dL (32.4-36.7) RDW 13.5 % % (11.5-15.2) Plt Count 223 10^3/uL 10^3/uL (150-400) MPV 10.3 fL fL (8.7-11.7) Neut % (Auto) 61.7 % % (39.3-74.2) Lymph % (Auto) 25.2 % % (15.0-45.0) [place] % (Auto) 10.0 % % (4.5-13.0) Eos % (Auto) 1.8 % % (0.6-7.6) Baso % (Auto) 1.2 % % (0.3-1.7) Nucleat RBC Rel Count 0.0 % % (0.0-0.2) Absolute Neuts (auto) 4.21 10^3/uL 10^3/uL (1.70-6.50) Absolute Lymphs (auto) 1.72 10^3/uL 10^3/uL (1.00-3.00) Absolute Monos (auto) 0.68 10^3/uL 10^3/uL (0.30-0.80) Absolute Eos (auto) 0.12 10^3/uL 10^3/uL (0.03-0.40) Absolute Basos (auto) 0.08 10^3/uL 10^3/uL (0.02-0.10) Absolute Nucleated RBC 0.00 10^3/uL 10^3/uL (0-0.01) Immature Gran % 0.1 % % (0.0-1.1) Immature Gran # 0.01 10^3/uL 10^3/uL (0.00-0.10) Sodium 137 mEq/L mEq/L (135-145) Potassium 4.1 mEq/L mEq/L (3.3-5.0) Chloride 99 mEq/L mEq/L (97-110) Carbon Dioxide 28 mEq/l mEq/l (22-31) Anion Gap 10 mEq/L mEq/L (6-14) BUN 18 mg/dL mg/dL (7-23) Creatinine 1.0 mg/dL mg/dL (0.6-1.0) Estimated GFR 55 Glucose 86 mg/dL mg/dL (70-100) Calcium 10.1 mg/dL mg/dL (8.5-10.4) Total Bilirubin 1.1 mg/dL mg/dL (0.1-1.4) Conjugated Bilirubin 0.1 mg/dL mg/dL (0.0-0.5) Unconjugated Bilirubin 1.0 mg/dL mg/dL (0.0-1.1) AST 30 IU/L IU/L (14-46) ALT 26 IU/L IU/L (9-52) Alkaline Phosphatase 122 IU/L IU/L (38-126) Total Protein 7.7 g/dL g/dL (6.3-8.2) Albumin 4.8 g/dL g/dL (3.5-5.0) Lipase 121 IU/L IU/L (23-300) Urine Color SHIRLEY Urine Appearance CLEAR Urine pH 5.0 (5.0-7.5) Ur Specific [place] 1.021 (1.002-1.030) Urine Protein 1+ H (NEGATIVE) Urine Ketones NEGATIVE (NEGATIVE) Urine Blood NEGATIVE (NEGATIVE) Urine Nitrate POSITIVE H (NEGATIVE) Urine Bilirubin NEGATIVE (NEGATIVE) Urine Urobilinogen 4.0 EU H EU (0.2-1.0) Ur Leukocyte Esterase NEGATIVE (NEGATIVE) Urine RBC 5-10 /hpf H /hpf (0-3) Urine WBC 25-50 /hpf H /hpf (0-3) Ur Epithelial Cells TRACE /lpf /lpf (NONE-1+) Urine Bacteria TRACE /hpf H /hpf (NONE SEEN) Urine Mucus 2+ /lpf H /lpf (NONE-1+) Urine Glucose NEGATIVE (NEGATIVE) Medications Given: Discontinued Medications Hydromorphone HCl (Dilaudid) 0.5 mg IVP EDNOW ONE Stop: 03/07/18 20:33 Last Admin: 03/07/18 20:36 Dose: 0.5 mg Sodium Chloride (Ns) 1,000 mls @ 0 mls/hr IV EDNOW ONE; Wide Open PRN Reason: Protocol Stop: 03/07/18 19:58 Last Admin: 03/07/18 19:59 Dose: 1,000 mls Ceftriaxone Sodium/Dextrose (Rocephin 1 Gm (Premix)) 50 mls @ 100 mls/hr IV EDNOW ONE PRN Reason: Protocol Stop: 03/07/18 20:56 Last Admin: 03/07/18 20:36 Dose: 50 mls Departure - Departure Disposition: Home, Routine, Self-Care Clinical Impression: Acute pyelonephritis Urinary tract infection Qualifiers: Urinary tract infection type: acute cystitis Hematuria presence: without hematuria Qualified Code(s): N30.00 - Acute cystitis without hematuria Condition: Fair Instructions: Urinary Tract Infection in Women (ED), Kidney Infection (ED) Referrals: Denice Aguilar MD [Primary Care Provider] - As per Instructions Prescriptions: Cephalexin [Keflex] 500 mg PO TID #30 cap morphINE IR [morphINE IR 15 mg (*)] 15 mg PO Q3-4PRN PRN #10 tab PRN Reason: Pain, Severe
[2018-03-07 20:10] LABS: PLATELET COUNT 223 10^3/uL (150-400)
[2018-03-07] MEDS ORDERED: HYDROmorphONE/DILAUDID 2 MG/ML INJ IVP ONE (20:32)
[2018-03-07] MEDS ORDERED: HYDROmorphONE/DILAUDID 1 MG/ML INJ ONE (20:33)
[2018-03-07 20:57] VITALS: BP 126/76
== END 2018-03-07 21:00 | disposition home or self-care (01) ==
DX: N10 Acute pyelonephritis (principal); N18.2 Chronic kidney disease, stage 2 (mild)
CPT/HCPCS: 96361; 96365; 96375; 99284; J0696; J1170

== ENCOUNTER → 2018-05-20 | Outpatient (CLI) | payer OTHER, BC | LOC: BHFA 09:15 | PROVIDERS: ATTEND Internal Medicine Cardiovascular Disease | DX: Z95.2 Presence of prosthetic heart valve (principal) ==

== ENCOUNTER → 2018-07-19 | Outpatient (CLI) | payer OTHER, BC | LOC: BHFA 11:00 | PROVIDERS: ATTEND Internal Medicine Cardiovascular Disease | DX: R06.09 Other forms of dyspnea (principal) ==

== ENCOUNTER 2018-08-05 07:48 | Day surgery (SDC) | payer OTHER, BC ==
[2018-08-05] MEDS ORDERED: FAMOTIDINE 20 MG TAB PO ONE (07:52)
[2018-08-05] MEDS ORDERED: diphenhydrAMINE 25 MG CAP PO ONE (07:52)
[2018-08-05] MEDS ORDERED: NS 1,000 ML IV ONE (07:52)
[2018-08-05] MEDS ORDERED: ASPIRIN EC 325 MG TAB PO ONE (07:52)
[2018-08-05] MEDS ORDERED: DIAZEPAM 5 MG TAB PO ONE (07:52)
[2018-08-05] MEDS ORDERED: fentaNYL 100 MCG/2 ML INJ ONE (08:33)
[2018-08-05] MEDS ORDERED: LIDOCAINE 1% 300 MG/30 ML SDV ONE (08:33)
[2018-08-05] MEDS ORDERED: IOPAMIDOL (ISOVUE-370) 150 ML BTL IV ONE (08:34)
[2018-08-05] MEDS ORDERED: MIDAZOLAM 2 MG/2 ML VIAL ONE (08:34)
[2018-08-05] MEDS ORDERED: HEPARIN 10,000 UNIT/10 ML MDV (1,000 UNIT/ML) ONE (08:34)
[2018-08-05] MEDS ORDERED: VERAPAMIL 5 MG/2 ML VIAL ONE (08:34)
--- NOTE | 2018-08-05 08:37 | PDPROPOC ---
Sedation Plan of Care Sedation Plan of Care: vital signs stable, mental status noted, patient educated of risks, benefits, alternatives, patient can tolerate sedation ASA Classification: ASA 2 Planned drugs: fentanyl, midazolam Mallampati Score: Class 1 Mallampati Reference Image: Patient passed 3-3-2 rule?: Yes
--- NOTE | 2018-08-05 08:37 | PDHPUP ---
History & Physical Update H&P update statement: This history and physical update is based on an assessment of the patient which was completed after admission or registration (within 24 hours), but prior to the surgery/procedure. H&P update: H&P reviewed & patient examined, no change in patient's condition since H&P completed
[2018-08-05 08:38] LABS: PLATELET COUNT 182 10^3/uL (150-400)
[2018-08-05] MEDS ORDERED: fentaNYL 100 MCG/2 ML INJ IVP ONE (08:40)
[2018-08-05] MEDS ORDERED: BENZOCAINE UNIT DOSE SPRAY HURRICAINE MM ONE (08:40)
[2018-08-05] MEDS ORDERED: MIDAZOLAM 2 MG/2 ML VIAL IVP ONE (08:40)
[2018-08-05 08:46] LABS: INR 0.98 (0.83-1.16); PROTIME(PATIENT) 12.6 SEC (12.0-15.0)
--- NOTE | 2018-08-05 10:38 | PDDXCAT ---
Diagnostic Cath Note - . Date: 08/05/18 Newborn Photographer: Markie Indication: other ([facility] 3 CHF) - Procedure Access: right groin Procedure: left heart catheterization, coronary angiography, left ventriculogram , right heart catheterization - Materials Left Heart Cath size: 5F Left Heart Cath materials: JL3.5, JR4.0, pigtail Right Heart Cath size: 5F Right Heart Cath materials: PWP catheter - Findings-Left Heart Catheterization LM: Normal LAD: Normal LCX: Normal RCA: Normal EDP: 15 mm of mercury LVEF: 60 Wall motion: None - Findings-Right Heart Catheterization RA: 15 mm of mercury RV: 40/10 mm of mercury PA: 40/18 mm of mercury Estimated blood loss: <50ml Closure method: Angioseal Assessment: Angiographically normal coronary arteries. Normal LV systolic function. Mild pulmonary hypertension at rest. Severe tricuspid regurgitation on transesophageal echo associated with and VO2 of 17 cc/kilos per minute Plan: Tricuspid valve replacement Revision of pacemaker. Patient Problems: Problems Problem Status Onset Chest pain Acute Femoral neck fracture Acute Lupus Acute Aortic valve prosthesis present Acute History of mitral valve prosthesis Acute Urinary tract infection Acute Acute pyelonephritis Acute
--- NOTE | 2018-08-05 15:35 | ECHO ---
[email or web address] [id number] Main: [phone] Echocardiography Examination Transesophageal Name: KRISTIE TOBIAS MR#: [id number] Study Date: 08/05/2018 Study Time: 09:20 AM Date of : 1950 Age: 68 year(s) Height: ( ) Weight: ( ) BSA: Gender: Female Examination: DANIELE Contrast: Image Quality: Adequate Rhythm: Heart Rate: BP: / Indication: tricuspid regurgitation Procedure Staff Referring Physician: Science Faculty Member: Nandini Padilla [facility] Reading Physician: Valentín Aden MD Requesting Provider: Ordering Physician: Valentín Aden MD Indication: tricuspid regurgitation Acute complication: None Conclusions Overall Conclusions: No pericardial effusion. Severe tricuspid regurgitation in the setting of a bioprosthetic replacement. Normally functioning mitral valve prosthesis. Preserved LV systolic function. Pacing wire in the right heart. Findings Left Ventricle: Left ventricle is normal in size. Normal global systolic left ventricular function. Left Atrium: The left atrium is normal in size. Left Atrium Appendage: The left atrial appendage appears sewn over. Right Atrium: Right atrial enlargement. A line (catheter or pacing wire) is present in the right atrium. Mitral Valve: A bioprosthetic mitral valve is in place. The mitral valve prosthesis exhibits normal function. Mild MV prosthesis regurgitation. Aortic Valve: The aortic valve is structurally normal and trileaflet. No aortic valve regurgitation. Tricuspid Valve: Patient: KRISTIE TOBIAS Study Date: 08/05/2018 Page 1 of 2 09:20 AM A bioprosthesis is present in the tricuspid valve. Severe prosthesis regurgitation. Exam Details Procedure Ordered: DANIELE Procedure Status: Routine study Image Quality: Adequate Consent: Risks, alternatives of procedure explained to patient, informed consent obtained Probe Insertion: Attending ship yard electrical person Facility Location: Cardiac Echo 1 (No Signature Object) Patient: KRISTIE TOBIAS Study Date: 08/05/2018 Page 2 of 2 09:20 AM [id number]
--- NOTE | 2018-08-08 09:01 | CPEKG ---
Test Reason : OPEN Blood Pressure : / mmHG Vent. Rate : 079 BPM Atrial Rate : 080 BPM P-R Int : 244 ms QRS Dur : 139 ms QT Int : 460 ms P-R-T Axes : 175 235 060 degrees QTc Int : 528 ms Atrial-sensed ventricular-paced rhythm Similar to prior Confirmed by Rene Pappas ([id number]) on 08/08/2018 9:01:12 AM Referred By: JAYDEN BARRON Confirmed By:Rene Pappas
== END 2018-08-05 14:32 | disposition home or self-care (01) ==
LOC: FCATH 07:48
PROVIDERS: ATTEND Internal Medicine Interventional Cardiology
PROC: B2151ZZ Fluoroscopy of Left Heart using Low Osmolar Contrast (ICD-10-PCS; principal; 2018-08-05)
PROC: B2111ZZ Fluoroscopy of Multiple Coronary Arteries using Low Osmolar Contrast (ICD-10-PCS; principal; 2018-08-05)
PROC: 4A023N8 Measurement of Cardiac Sampling and Pressure, Bilateral, Percutaneous Approach (ICD-10-PCS; principal; 2018-08-05)
DX: I07.1 Rheumatic tricuspid insufficiency (principal); I27.20 Pulmonary hypertension, unspecified; Z95.4 Presence of other heart-valve replacement; Z95.0 Presence of cardiac pacemaker; Z88.2 Allergy status to sulfonamides
CPT/HCPCS: J1644; J2250; J3010; Q9967

== ENCOUNTER → 2018-08-28 | Outpatient (CLI) | payer OTHER, BC | LOC: FIMAGING 08:43 | PROVIDERS: ATTEND Thoracic Surgery (Cardiothoracic Vascular Surgery) | DX: I07.1 Rheumatic tricuspid insufficiency (principal) ==

== ENCOUNTER 2018-09-02 08:56 | Inpatient (IN) | payer OTHER, BC ==
[~2018-09-02 08:56] MED LIST: ADENOSINE 6 MG/2 ML VIAL ONE; ALBUMIN 5% 250 ML BOTTLE IV ONE; AMINOCAPROIC ACID 5 GM/20 ML VIAL ONE; AMIODARONE HCL 150 MG/3 ML VIAL ONE; CALCIUM CHLORIDE 1 GM/10 ML INJ ONE; CARDIOPLEGIC SOLUTION 1,052.8 ML PF ONE; CITRATE DEXTROSE SOLN 500 ML BAG ONE; DOBUTamine 500 MG in D5W 250 ML IV ONE; DOBUTamine/DEXTROSE 250 ML IV ONE; DOPamine/DEXTROSE 400 MG/250 ML BAG IV ONE; HEPARIN 10,000 UNIT/10 ML MDV (1,000 UNIT/ML) ONE; INSULIN REGULAR HUMAN 100 UNIT in NS 100 ML IV ONE; LIDOCAINE 2% 100 MG/5 ML SYR ONE; MAGNESIUM SULFATE 1 GM/2 ML VIAL ONE; MANNITOL 25% 12.5 GM/50 ML VIAL IVP ONE; MILRINONE/DEXTROSE/100 ML BAG IV ONE; NA BICARBONATE 50 MEQ/50 ML VIAL ONE; NITROGLYCERIN/D5W 50 MG/250 ML BOTTLE IV ONE; NOREPINEPHRINE BITARTRATE 16 MG in NS 250 ML IV ONE; PHENYLEPHRINE HCL 50 MG in NS 250 ML IV ONE; PROTAMINE SULFATE 50 MG/5 ML VIAL IVP ONE; SODIUM BICARBONATE 50 MEQ/50 ML SYR ONE; ceFAZolin 1 GM VIAL ONE; methylPREDNISolone SOD SUCC 1 GM/8 ML VIAL ONE; niCARdipine/NACL/200 ML BAG IV ONE
[2018-09-02] MEDS ORDERED: AMINOCAPROIC ACID 5 GM/20 ML VIAL IV ONE (09:16)
[2018-09-02] MEDS ORDERED: CITRATE DEXTROSE SOLN 500 ML BAG MISC ONE (09:16)
[2018-09-02] MEDS ORDERED: NS 1,000 ML IV ONE (09:16)
[2018-09-02] MEDS ORDERED: CHLORHEXIDINE GLUC HIBICLENS 118 ML BTL TP SCH (09:16)
[2018-09-02] MEDS ORDERED: LIDOCAINE 1% 2 ML INJ ID PRN (09:16)
[2018-09-02] MEDS ORDERED: MUPIROCIN 2% 22 GM OINT NS ONE (09:16)
[2018-09-02] MEDS ORDERED: ceFAZolin 2 GM/DEXTROSE 100 ML IV ONE (09:16)
[2018-09-02] MEDS ORDERED: LR 1,000 ML IV ONE (09:22)
[2018-09-02] MEDS ORDERED: MIDAZOLAM 2 MG/2 ML VIAL IVP ONE (11:00)
--- NOTE | 2018-09-02 11:01 | PDANEPAE ---
ANE History of Present Illness here for TVR (re-do X 2) ANE Past Medical History - Cardiovascular History Hx Hypertension: Yes Hx Arrhythmias: Yes Hx Coronary Artery / Peripheral Vascular Disease: Yes Hx CHF / Valvular Disease: Yes Cardiovascular History Comment: PACEMAKER - 2012 - Pulmonary History Hx COPD: No Hx Asthma/Reactive Airway Disease: No Hx Recent Upper Respiratory Infection: No Hx Oxygen in Use at Home: Yes O2 in Use at Home (L/minute): 2L NOC ONLY Hx Sleep Apnea: Yes Sleep Apnea Screening Result - Last Documented: Positive Pulmonary History Comment: 2 L AT NIGHT ONLY - Neurologic History Hx Cerebrovascular Accident: No Hx Seizures: No Hx Dementia: No Neurologic History Comment: LOWER RIGHT EXTREMITY NEUROPATHY - Endocrine History Hx Diabetes: No - Renal History Hx Renal Disorders: No - Liver History Hx Hepatic Disorders: No - Neurological & Psychiatric Hx Hx Neurological and Psychiatric Disorders: No - Cancer History Hx Cancer: No Cancer History Comment: ENDOMETRIAL CANCER - HYSTERECTOMY - Congenital Disorder History Hx Congenital Disorders: No - GI History Hx Gastrointestinal Disorders: Yes Gastrointestinal History Comment: CONSTIPATION, COLONOSCOPY NEGATIVE, GERD - Other Health History Other Health History: LUPUS, REYNAULD'D DX LAVONNE HANDS, SJOGREN'S SYNDROME - Chronic Pain History Chronic Pain: Yes (LUPUS) - Surgical History Prior Surgeries: PACER, HYSTERECTOMY, APPENDECTOMY, MITRAL VALVE AND TRICUSPID VALVE. ANE Review of Systems Review of systems is: negative Review of Systems: - Exercise capacity Exercise capacity: >=4 METS METS (RN): 4 METS - Pacemaker Pacemaker [employer]: [employer] Date Pacemaker Last Checked: 05/24/12 ANE Patient History - Allergies Allergies/Adverse Reactions: Sulfa (Sulfonamide Antibiotics) Allergy (Intermediate, Verified 02/11/15 11:43) Rash latex Allergy (Verified 09/24/14 18:07) ADHESIVE TAPE Allergy (Intermediate, Uncoded 09/24/14 18:07) Rash - Home Medications Home medications: home medication list seen and reviewed Home Medications: Estradiol [Vivelle-Dot 0.075MG (*)] 0.075 mg TD MOFR 06/24/12 [Last Taken ] Herbals/Supplements -Info Only 1 each PO AD 06/24/12 [Last Taken 09/01/18] Potassium Cl [Klor-Con 20 meq (*)] 20 meq PO MWF 11/20/12 [Last Taken 09/01/18] Ascorbic Acid [Vitamin C 500 mg (*)] 500 mg PO DAILY 09/24/14 [Last Taken ] Cyanocobalamin [Vitamin B12 (*)] 1,000 mcg PO DAILY 09/24/14 [Last Taken ] Estradiol [VAGIFEM] 10 mcg VG MOFR 09/24/14 [Last Taken 09/01/18] Fluoxetine HCl [Prozac 40 mg] 40 mg PO DAILY 09/24/14 [Last Taken 09/01/18] Furosemide [Lasix 40 MG (*)] 40 mg PO DAILY 09/24/14 [Last Taken 09/01/18] Glucosamine Sulfate [Glucosamine Sulfate 500 MG (*)] 1,500 mg PO DAILY 09/24/14 [Last Taken 09/01/18] Aspirin EC [Aspirin EC 81 mg (*)] 81 mg PO DAILY 02/11/15 [Last Taken 09/01/18] Lisinopril [Zestril 2.5 mg (*)] 2.5 mg PO HS 04/26/17 [Last Taken 09/01/18] Mirabegron [Myrbetriq] 25 mg PO BID 07/31/18 [Last Taken 09/01/18] Omeprazole 20 mg PO DAILY 07/31/18 [Last Taken 09/01/18] cycloSPORINE 0.05% [Restasis Opht Drops(*)] 1 drop EACHEYE DAILY 07/31/18 [Last Taken 09/01/18] - NPO status NPO Status: no food or drink >8 hours NPO Since - Liquids (Date): 09/01/18 NPO Since - Liquids (Time): 20:00 NPO Since - Solids (Date): 09/01/18 NPO Since - Solids (Time): 18:00 - Smoking Hx Smoking Status: Never smoked ANE Labs/Vital Signs - Vital Signs Vital Signs: reviewed preoperatively; see RN documention for details Blood Pressure: 140/75 Heart Rate: 80 Respiratory Rate: 16 O2 Sat (%): 98 Height: 157.48 cm Weight: 60.781 kg ANE Physical Exam - Airway Neck exam: FROM Mallampati Score: Class 1 - Pulmonary Pulmonary: no respiratory distress - Cardiovascular Cardiovascular: regular rate and rhythym - ASA Status ASA Status: III ANE Anesthesia Plan Anesthesia Plan: general endotracheal anesthesia Lines/Monitors: arterial line, central line, DANIELE Specialized Airway: video laryngoscope
[2018-09-02] MEDS ORDERED: ROCURONIUM 100 MG/10 ML VIAL ONE (11:11)
[2018-09-02] MEDS ORDERED: PROPOFOL/EMULSION 500 MG/50 ML BOTTLE IV ONE (11:11)
[2018-09-02] MEDS ORDERED: fentaNYL 250 MCG/5 ML INJ ONE ×2 (11:14→12:19)
[2018-09-02] MEDS ORDERED: PHENYLEPHRINE HCL 100 MCG/ML SYR ONE ×4 (11:15→16:18)
[2018-09-02] MEDS ORDERED: ePHEDrine SULFATE 25 MG/5 ML SYR ONE ×4 (11:15→17:13)
[2018-09-02] MEDS ORDERED: KETAMINE 200 MG/20 ML VIAL ONE (12:05)
[2018-09-02] MEDS ORDERED: DOBUTamine/DEXTROSE 250 ML IV SCH ×2 (16:00→18:00)
[2018-09-02] MEDS ORDERED: FIBRINOGEN/THROMBIN(HUMAN) 9.5 CM X 4.8 CM PATCH (TACHOSIL) TP ONE (16:06)
[2018-09-02] MEDS ORDERED: ALBUMIN 5% 250 ML BOTTLE IV ONE (16:52)
[2018-09-02] MEDS ORDERED: ONDANSETRON DISINTEGRATING 4 MG TAB PO PRN (17:31)
[2018-09-02] MEDS ORDERED: LACTULOSE 20 GM/30 ML UDCUP PO PRN (17:31)
[2018-09-02] MEDS ORDERED: POLYETHYLENE GLYCOL 3350 17 GM PKT PO PRN (17:31)
[2018-09-02] MEDS ORDERED: ACETAMINOPHEN 650 MG SUPP PR PRN (17:31)
[2018-09-02] MEDS ORDERED: ONDANSETRON 4 MG/2 ML VIAL IVP PRN (17:31)
[2018-09-02] MEDS ORDERED: HYDROCODONE/APAP 5/325 TAB PO PRN (17:31)
[2018-09-02] MEDS ORDERED: ACETAMINOPHEN 325 MG TAB PO PRN (17:31)
[2018-09-02] MEDS ORDERED: CEPACOL LOZENGE PO PRN (17:31)
[2018-09-02] MEDS ORDERED: SODIUM CL NASAL 45 ML BTL EACHNARE PRN (17:31)
[2018-09-02] MEDS ORDERED: BISACODYL 10 MG SUPP PR PRN (17:31)
[2018-09-02] MEDS ORDERED: D50W 25 GM/50 ML SYR IVP PRN (17:31)
[2018-09-02] MEDS ORDERED: PANTOPRAZOLE SODIUM 40 MG VIAL IVP ONE (17:31)
[2018-09-02] MEDS ORDERED: POTASSIUM Cl (KCl) 50 ML IV PRN (17:31)
[2018-09-02] MEDS ORDERED: MEPERIDINE 25 MG/0.5 ML AMP IVP PRN (17:31)
[2018-09-02] MEDS ORDERED: METOCLOPRAMIDE 10 MG/2 ML VIAL IVP PRN (17:31)
[2018-09-02] MEDS ORDERED: MAGNESIUM HYDROXIDE 30 ML UDCUP PO PRN (17:31)
[2018-09-02] MEDS ORDERED: NS 1,000 ML IV SCH (17:45)
--- NOTE | 2018-09-02 17:55 | POSTOPPROG ---
Post Op Note Date of Operation: 09/02/18 Surgeon: Dick Eastman Assistant: Barbra Arevalo PA-C Anesthesia: GET(General Endotracheal) Pre-op Diagnosis: prosthetic tricuspid valve failure Post-op Diagnosis: same Indication: severe TR with right heart failure Procedure: Redo TVR, replace transvenous RV ld w epicardial ld x 2 , rev pacer pocket Findings: scarring between bioprosthetic anteroseptal leaflets and endocardium Inf/Abcess present in the surg proc area at time of surgery?: No EBL: n/a Bowel Protocol: N/A Clean Closure Performed: Yes Drains: Other (36 Fr mediastinal chest tubes x 2. Transcutaneous ventricular pacing leads at backup rate of 40. Permanent pacemaker reprogrammed to DDD lower rate of 90. Spare RV lead capped under generator) Specimen(s): explanted tricuspid valve, explanted transvenous RV lead
[2018-09-02] MEDS ORDERED: INSULIN REGULAR HUMAN 100 UNIT in NS 100 ML IV SCH (18:00)
[2018-09-02] MEDS ORDERED: NOREPINEPHRINE BITARTRATE 16 MG in NS 250 ML IV SCH (18:00)
[2018-09-02 18:22] LABS: INR 2.58 (0.83-1.16); PROTIME(PATIENT) 26.4 SEC (12.0-15.0)
--- NOTE | 2018-09-02 18:27 | POSTANESTH ---
Post Anesthetic Evaluation Cardiovascular Status: Tx Over/Under Hydration (levophed and dobutamine drips) Respiratory Status: Requires Airway Assist (intubated) Level of Consciousness/Mental Status: Unconscious Pain Control: Adequate, Prn Tx Ordered Nausea/Vomiting Control: Adequate, Prn Tx Ordered Complications Possibly Related to Anesthesia: None Noted
[2018-09-02] MEDS ORDERED: FAMOTIDINE 20 MG/NACL 50 ML IV SCH (21:00)
[2018-09-02] MEDS ORDERED: CHLORHEXIDINE GLUCONATE 15 ML UDL PO SCH (21:00)
[2018-09-02] MEDS: fentaNYL 100 MCG/2 ML INJ IVP PRN (21:14)
[2018-09-02] MEDS: MUPIROCIN 2% 22 GM OINT NS SCH (21:30)
[2018-09-02] MEDS: ceFAZolin 2 GM/DEXTROSE 100 ML IV SCH (22:37)
[2018-09-02] MEDS: DEXMEDETOMIDINE HCL 400 MCG in NS 100 ML IV SCH (22:44)
[2018-09-03] MEDS ORDERED: AMIODARONE TACHY-6HR INFSN (ORDER 2/3) PREMIX IV ONE (01:00)
[2018-09-03] MEDS ORDERED: [UNRECOGNIZED DRUG - OTHER] IV ONE (01:00)
[2018-09-03] MEDS: fentaNYL 100 MCG/2 ML INJ IVP PRN ×2 (01:34→03:57)
[2018-09-03 04:26] LABS: PLATELET COUNT 100 10^3/uL (150-400)
[2018-09-03] MEDS: ALBUMIN 5% 250 ML IV PRN ×2 (04:30→16:05)
[2018-09-03] MEDS: DEXMEDETOMIDINE HCL 400 MCG in NS 100 ML IV SCH (04:42)
[2018-09-03 04:57] LABS: INR 1.2 (0.83-1.16); PROTIME(PATIENT) 14.7 SEC (12.0-15.0)
[2018-09-03] MEDS: ceFAZolin 2 GM/DEXTROSE 100 ML IV SCH ×3 (06:24→21:04)
[2018-09-03] MEDS ORDERED: AMIODARONE HCL 540 MG in D5W 300 ML IV SCH (07:00)
--- NOTE | 2018-09-03 07:14 | SOAPPROG ---
SOAP Progress Note Assessment/Plan: Assessment: POD#1 redo median sternotomy, takedown of adhesions on rt fem-fem CPB, redo TVR w #29 bioprosthesis, explant transvenous RV lead, implant RV epicardial leads x 2 tunneled to existing pacer pocket, pacer pocket revision with connection of new RV lead and reprogramming of base rate to DDD 90, spare RV lead capped and coiled under generator, primary repair rt femoral vessels after decannulation. Prosthetic valve failure w severe TR - Exacerbated by transvalvular pacer lead ( see pics in chart). New bioprosthesis implanted. Antithrombotic prophylaxis with Coumadin once tubes and temp Vwires out. Target INR 2-3, duration 2 mo. Valvular cardiomyopathy with RVSD - Preserved LV systolic fx and mild RV dysfx evident intraop. from CPB on dobutamine and levo. Drips steadily weaned overnoc and currently only on low dose dobut. Successfully extubated earlier this am. Moderate volume overload well tolerated. Acute expected blood loss anemia with coagulopathy - Stable s/p 2u FFP and 2u Plt. No evidence active bleeding. VTE prophylaxis with SCDs for now. Presence of dual chamber permanent pacemaker - for hx CHB. New epicardial RV leads placed. Placement of LV lead impeded by dense scar tissue. Lower pacer rate inc to 90 for optimized hemodynamics. Started on amio for runs of NSVT vs AF w aberrancy (while on levo). Presence of bioprosthetic mitral valve - Function intact. Surveillance per cards. Plan: Remove PA cath. Remove scotty if good correlation to cuff pressure. Wean dobut to SBP > 100. Keep davidson until off dobutamine. Colloid prn CVP < 12. Lasix prn CVP > 16. Wrap and cap Vwires. CTs to suction at rest. Advance diet once swallow cleared. Mobilize. Stop amio after IV load unless recurrent dysrhythmia. Poss tx to SDU this afternoon. 09/03/18 07:09 Subjective: Feels better than she thought she would. No pain. Thirsty. Objective: Vital Signs Temp Pulse Resp BP Pulse Ox 37.8 C 91 21 H 111/55 L 96 09/03/18 06:00 09/03/18 06:00 09/03/18 06:00 09/03/18 06:00 09/03/18 06:00 Microbiology 09/02/18 15:00 Gram Stain - Final Heart - Other Laboratory Results 09/03/18 04:03 09/03/18 04:03 09/02/18 09/03/18 09/04/18 05:59 05:59 05:59 Intake Total 3075 Output Total 1167 Balance 1908 PT 14.7 SEC (12.0-15.0) 09/03/18 04:03 INR 1.20 (0.83-1.16) H 09/03/18 04:03 Dobut down to 2.5 mcg. Rhythm paced and stable on amio/off levo. PAs 30s/20s, CI 2.2-2.6, SVO2 > 70. CVP up to 19 (12-15 overnoc) with positive fluid balance and downtrending UOP. Stable 4lpm suppl O2 req. No sig CTOP. CXR -> No PTX, bibasilar atelectasis R>L, mild pulm vasc congestion, swan buckled in main PA. Labs as expected. INR appears to have normalized. Physical Exam - Physical Exam General Appearance: alert, no apparent distress Respiratory: lungs clear (excellent insp effort), other (CTs x 2 y-d to pleurovac, serosang drainage, no air leak) Cardiac/Chest: regular rate, rhythm, other (Sternotomy and left pacer pocket dressing CDI. Vwires intact. ) Peripheral Pulses: 2+: dorsalis-pedis (R) (rt groin incision CDI), dorsalis- pedis (L) Abdomen: normal bowel sounds, non-tender, soft Skin: warm/dry Extremities: swelling (trace) ICD10 Worksheet Patient Problems: Problems Problem Status Onset Acute blood loss anemia Acute Coagulopathy Acute Prosthetic valve failure Acute S/P tricuspid valve replacement Acute ~09/02/18 s/p explant transvenous RV lead Acute ~09/02/18 s/p placement RV epicardial lead Acute ~09/02/18 History of tricuspid valve replacement with bioprosthetic valve Chronic Presence of permanent cardiac pacemaker Chronic History of mitral valve prosthesis Chronic
[2018-09-03] MEDS ORDERED: FUROSEMIDE 20 MG/2 ML VIAL IVP ONE (07:34)
[2018-09-03] MEDS: OXYCODONE/APAP 5/325 TAB PO PRN ×4 (08:23→20:39)
[2018-09-03] MEDS: FLUoxetine 20 MG CAP PO SCH (08:24)
[2018-09-03] MEDS: PANTOPRAZOLE SODIUM 40 MG TAB PO SCH (08:24)
[2018-09-03] MEDS: MUPIROCIN 2% 22 GM OINT NS SCH ×2 (08:29→21:04)
--- NOTE | 2018-09-03 08:42 | PDMN ---
Medical Necessity Medical necessity: 68 yo s/p tricuspid valve replacement, CPT 79525, [facility] S290 Cardiac Valve Replacement or Repair, [facility] only
[2018-09-03] MEDS ORDERED: ASPIRIN 81 MG CHEWABLE TAB TUBE PRN (09:00)
[2018-09-03] MEDS: cycloSPORINE 0.05% 30 DROPERETTE/BOX EACHEYE SCH (12:23)
--- NOTE | 2018-09-03 16:28 | ASMTCMCOM ---
CM Note CM Note Notes: Patient is post-op day #1 cardiac surgery. Met with patient to discuss home situation and possible disposition options when medically stable. Patient lives with her up in [facility]. Upon patient's admission in 2016, CM attempted to set-up HHC, although unclear if we were successful finding one. Patient indicated there was a HHC that came to her home, unable to recall the name of home care. 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 Therapy following, will continue to assess needs and discuss with surgery team. Plan: TBD Date Signed: 09/03/2018 04:27 PM Electronically Signed By:Lashell Quinones RN
[2018-09-04] MEDS: OXYCODONE/APAP 5/325 TAB PO PRN ×5 (00:36→16:53)
[2018-09-04 04:14] LABS: INR 1.21 (0.83-1.16); PROTIME(PATIENT) 14.8 SEC (12.0-15.0)
[2018-09-04] MEDS: ceFAZolin 2 GM/DEXTROSE 100 ML IV SCH (06:03)
--- NOTE | 2018-09-04 07:18 | SOAPPROG ---
CHARLIE Progress Note Assessment/Plan: POD #2: redo median sternotomy, takedown of adhesions on rt fem-fem CPB, redo TVR w #29 bioprosthesis, explant transvenous RV lead, implant RV epicardial leads x 2 tunneled to existing pacer pocket, pacer pocket revision with connection of new RV lead and reprogramming of base rate to DDD 90, spare RV lead capped and coiled under generator, primary repair rt femoral vessels after decannulation. 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 Antithrombotic prophylaxis with Coumadin once tubes and temp Vwires out. Target INR 2-3, duration 2 mo. Plan for removal of CTs/wires today. Presence of dual chamber permanent pacemaker with hx CHB s/p placement of epicardial RV leads. Placement of LV lead impeded by dense scar tissue. Lower pacer rate inc to 90 for optimized hemodynamics. Possible lowering of rate prior to d/c. Acute post-op blood loss anemia with coagulopathy - stable s/p 2u FFP, 2u Plt, 2u PRBC. Post-op SVT/AF - controlled with IV amiodarone. PO amiodarone avoided as per Dr. Leslie Torres. Will consider low dose beta-nicole for further prophylaxis. Presence of bioprosthetic mitral valve - Function intact. Surveillance per cards. DVT prophylaxis - SCDs alone. Disposition - likely PCU today. Subjective: Abdomen feels bloated. Denies pain/SOB. Objective: Vital Signs Temp Pulse Resp BP Pulse Ox 36.5 C 91 12 126/70 H 93 09/04/18 01:00 09/04/18 06:00 09/04/18 06:00 09/04/18 06:00 09/04/18 06:00 Microbiology 09/02/18 15:00 Gram Stain - Final Heart - Other 09/02/18 15:00 Mycobacterial Smear (LORETO) - Final Heart - Other Laboratory Results 09/04/18 03:55 09/04/18 03:55 09/03/18 09/04/18 09/05/18 05:59 05:59 05:59 Intake Total 3075 2893 Output Total 1167 1000 Balance 1908 1893 PT 14.8 SEC (12.0-15.0) 09/04/18 03:55 INR 1.21 (0.83-1.16) H 09/04/18 03:55 Physical Exam - Physical Exam General Appearance: WD/WN, alert, no apparent distress EENT: No scleral icterus (R), No scleral icterus (L) Neck: normal inspection Respiratory: No respiratory distress Cardiac/Chest: other (paced) Abdomen: non-tender, soft, No distended Skin: normal color, warm/dry Extremities: pedal edema Neuro/Psych: no motor/sensory deficits, alert, normal mood/affect, oriented x 3 ICD10 Worksheet Patient Problems: Problems Problem Status Onset Acute blood loss anemia Acute Coagulopathy Acute Prosthetic valve failure Acute S/P tricuspid valve replacement Acute ~09/02/18 s/p explant transvenous RV lead Acute ~09/02/18 s/p placement RV epicardial lead Acute ~09/02/18 History of tricuspid valve replacement with bioprosthetic valve Chronic Presence of permanent cardiac pacemaker Chronic History of mitral valve prosthesis Chronic
[2018-09-04] MEDS ORDERED: FUROSEMIDE 20 MG/2 ML VIAL IVP ONE (08:03)
[2018-09-04] MEDS: PANTOPRAZOLE SODIUM 40 MG TAB PO SCH (08:09)
[2018-09-04] MEDS: cycloSPORINE 0.05% 30 DROPERETTE/BOX EACHEYE SCH (08:09)
[2018-09-04] MEDS: FLUoxetine 20 MG CAP PO SCH (08:10)
[2018-09-04] MEDS: ASPIRIN EC 81 MG TAB PO SCH (08:10)
[2018-09-04] MEDS: MUPIROCIN 2% 22 GM OINT NS SCH ×2 (08:16→21:57)
[2018-09-04] MEDS ORDERED: FUROSEMIDE 40 MG/4 ML VIAL IVP ONE (15:00)
[2018-09-04] MEDS ORDERED: oxyCODONE IR 5 MG TAB PO PRN (15:56)
[2018-09-04] MEDS ORDERED: WARFARIN SODIUM 2.5 MG TAB PO ONE (16:00)
[2018-09-04] MEDS: SENNOSIDES/DOCUSATE SODIUM TAB PO SCH (21:58)
[2018-09-05 03:38] LABS: INR 1.21 (0.83-1.16); PROTIME(PATIENT) 14.8 SEC (12.0-15.0)
--- NOTE | 2018-09-05 08:04 | SOAPPROG ---
SOAP Progress Note Assessment/Plan: Assessment: POD#3 redo median sternotomy, takedown of adhesions on rt fem-fem CPB, redo TVR w #29 bioprosthesis, explant transvenous RV lead, implant RV epicardial leads x 2 tunneled to existing pacer pocket, pacer pocket revision with connection of new RV lead and reprogramming of base rate to DDD 90, spare RV lead capped and coiled under generator, primary repair rt femoral vessels after decannulation. Prosthetic valve failure w severe TR - Exacerbated by transvalvular pacer lead ( see pics in chart). New bioprosthesis implanted. CTs and TCPWs out. Antithrombotic prophylaxis with Coumadin initiated. Target INR 2-3, duration 2 mo. Valvular cardiomyopathy with RVSD - Preserved LV systolic fx and mild RV dysfx evident intraop. from CPB on dobutamine and levo. Successfully weaned off all pressor support and extubated by POD#1. Significant volume overload well tolerated. Suboptimal response to moderate doses of lasix. Acute expected blood loss anemia with coagulopathy - Stable s/p 2u FFP, 2u Plt, and 2u PRBC. VTE prophylaxis with SCDs and coumadin. Presence of dual chamber permanent pacemaker - for hx CHB. New epicardial RV leads placed. Placement of LV lead impeded by dense scar tissue. Lower pacer rate inc to 90 for optimized hemodynamics. Brief PSVT/AF while on levo controlled with IV amio. Maintenance amio only if recurrent arrhythmia. Adjunctive BB as allowed by BP. Presence of bioprosthetic mitral valve - Function intact. Surveillance per cards. Plan: Intensify diuresis. Trial Demadex. Increase coumadin to 5 mg today. Baseline postop echo tomorrow. 09/05/18 08:04 Subjective: Feels bloated, crackly, and more SOB. Eager for a shower. Objective: Vital Signs Temp Pulse Resp BP Pulse Ox 36.6 C 91 11 L 110/59 L 89 L 09/05/18 07:47 09/05/18 07:47 09/05/18 07:47 09/05/18 07:47 09/05/18 07:47 Microbiology 09/02/18 15:00 Gram Stain - Final Heart - Other Laboratory Results 09/05/18 03:15 09/05/18 03:15 09/04/18 09/05/18 09/06/18 05:59 05:59 05:59 Intake Total 2893 1108 Output Total 1000 800 Balance 1893 308 PT 14.8 SEC (12.0-15.0) 09/05/18 03:15 INR 1.21 (0.83-1.16) H 09/05/18 03:15 Paced, no tachyarrhythmias. SBPs 110s. Suppl O2 req up to 6-8 lpm overnoc, now 4.5 lpm. 10 kg positive fluid balance. Only 800 ml UOP w 40mg IV lasix yest afternoon. Renal fx remains nl. H/H stable. INR yet to budge. Physical Exam - Physical Exam General Appearance: alert, no apparent distress (sitting in chair) Respiratory: crackles (bibasilar o/w CTA), other (chest tube dressing intact) Cardiac/Chest: regular rate, rhythm (Apaced), other (Sternotomy and left pacer pocket incisions CDI) Abdomen: non-tender, soft Skin: warm/dry Extremities: swelling (trace dependent), other (rt groin incision CDI) ICD10 Worksheet Patient Problems: Problems Problem Status Onset Acute blood loss anemia Acute Coagulopathy Acute Prosthetic valve failure Acute S/P tricuspid valve replacement Acute ~09/02/18 s/p explant transvenous RV lead Acute ~09/02/18 s/p placement RV epicardial lead Acute ~09/02/18 History of tricuspid valve replacement with bioprosthetic valve Chronic Presence of permanent cardiac pacemaker Chronic History of mitral valve prosthesis Chronic
[2018-09-05] MEDS: ASPIRIN EC 81 MG TAB PO SCH (08:58)
[2018-09-05] MEDS: GLUCOSAMINE SULF 500 MG CAP PO SCH (08:58)
[2018-09-05] MEDS: OXYCODONE/APAP 5/325 TAB PO PRN ×2 (08:58→20:26)
[2018-09-05] MEDS: PANTOPRAZOLE SODIUM 40 MG TAB PO SCH (08:58)
[2018-09-05] MEDS: ASCORBIC ACID 500 MG TAB PO SCH (08:58)
[2018-09-05] MEDS: FLUoxetine 20 MG CAP PO SCH (08:59)
[2018-09-05] MEDS: CYANO/VITAMIN B12 1000 MCG TAB PO SCH (08:59)
[2018-09-05] MEDS: SENNOSIDES/DOCUSATE SODIUM TAB PO SCH ×2 (08:59→20:24)
[2018-09-05] MEDS: cycloSPORINE 0.05% 30 DROPERETTE/BOX EACHEYE SCH (09:03)
[2018-09-05] MEDS ORDERED: POTASSIUM CL 10 MEQ TAB PO ONE ×2 (10:00→15:00)
[2018-09-05] MEDS ORDERED: TORSEMIDE 20 MG TAB PO ONE (10:00)
--- NOTE | 2018-09-05 11:39 | ASMTCMCOM ---
CM Note CM Note Notes: 09/05/2018 Case Management Note Discussed with Barbra THAKKAR this morning. Anticipating independent d/c with cardiac outpatient rehab. Case Management d/c poc: independent with cardiac outpatient rehab. Case Management available if needs change. Date Signed: 09/05/2018 11:39 AM Electronically Signed By:Leigh Krishnamurthy RN
--- NOTE | 2018-09-05 12:25 | GOP ---
[f rep st] OPERATIVE REPORT DATE OF OPERATION: 09/02/2018 SURGEON: Dick Eastman MD BOTTLE GAUGER: Barbra Arevalo, KAROLINA. PREOPERATIVE DIAGNOSIS: Prosthetic tricuspid valve failure. POSTOPERATIVE DIAGNOSIS: Prosthetic tricuspid valve failure. PROCEDURE PERFORMED: 1. Third time redo sternotomy and tricuspid valve replacement using a 29 mm Hardwick Magna bovine per icardial valve. 2. Removal of right ventricular pacing lead. 3. Placement of 2 epicardial pacing leads. 4. Pacemaker pocket revision. FINDINGS: There were dense adhesions throughout the mediastinum. The lead was pressing on one of th e leaflets of the valve and it caused it to fuse laterally with some tissue in the right ventricle. INDICATIONS: This patient has had 2 previous tricuspid valve procedures. One was through the sternu m ane one was through the right chest. She had a lot of difficulty after her right-sided approach wi th lots of inflammation in the left chest. She is now undergoing redo sternotomy for replacement of this now degenerated tricuspid valve, which has a lead going through it, and apparently a leaflet helga t is pinned to the wall with wide-open TR. DESCRIPTION OF PROCEDURE: The patient was taken the operating room and placed on the operating table in supine position. After induction of general anesthesia and single-lumen endotracheal tube intuba tion, patient was prepped and draped sterilely. We began by cutting down the right common femoral ar román and vein. We sewed an 8 mm cannula graft to the common femoral artery and placed a 21-Icelandic lo ng venous drainage cannula in the right atrium under transesophageal echo guidance. The patient, at this point, was fully heparinized, and we began cardiopulmonary bypass and emptied the heart. The pr evious incision on the sternum was opened. The wires were removed, and using an oscillating saw, we very carefully entered the chest. There was noted on previous CT scanning that the heart was adheren t to the sternum. With great caution, we were able to open the chest without injury to the heart. Next, we meticulously dissected out the right side. Again, this was densely adherent and took a grea t deal of time to adequately expose the right atrium, as well as the aorta. Once this was completed, we changed the arterial cannula to the ascending aorta and then changed the venous cannulas to bicav al cannulation with 24-Icelandic in the SVC and 28-Icelandic in the IVC. Next, we do applied the cross-clamp and arrested the heart with a liter of [place] solution. The ri ght atrium was opened. The findings were as described above. The lead was removed from the right ve ntricle and cut. We then inspected the valve. Clearly, 1 of the leaflets was pinned to the wall. Devang chavez meticulously resected this degenerated valve and debrided the anulus. It was sized again to a 29 m m valve. Sutures were then placed around the anulus with pledgets on the atrial side, and this valve was seated without difficulty. The right atrium was then closed. Attention was directed at the [facility] for the pacemaker. This was opened. The previous RV lead was then removed and having placed 2 r ight ventricular pacing leads, we connected one of these to the permanent pacemaker, such that the pa tient now had atrial and ventricular leads. The second right ventricular lead was left in the pocket . Because of the dense adhesions posteriorly from the previous operation, it was felt that it would not be safe to spend the needed time to dissect out this area, and if the patient needs a left ventri cular lead in the future, this could be placed in the coronary sinus. Once the pacemaker had been at tached, it was replaced in the pocket. This was closed in layers with Vicryl suture. Patient was se parated from bypass. The post pump transesophageal echo shows a normally functioning bioprosthetic v alve in the tricuspid position. This [place] was through this valve at the time, which explains the sma ll amount of tricuspid regurgitation, again from the catheter passing through the valve. Next, protamine was administered, and the patient was decannulated. We repaired the right common fem oral artery as well as the right common femoral vein and placed 2 epicardial temporary pacing wires a s well as two mediastinal chest tubes. Once hemostasis had been achieved, the chest was then closed with #6 stainless steel wires. Subcutaneous tissue and skin were closed with running Vicryl suture. The patient tolerated this well and was returned to the ICU in stable condition. /[id number]/MODL
[2018-09-05] MEDS ORDERED: FUROSEMIDE 100 MG/10 ML VIAL IVP ONE (15:00)
[2018-09-05] MEDS ORDERED: WARFARIN SODIUM 5 MG TAB PO ONE (16:00)
[2018-09-06 06:02] LABS: INR 1.87 (0.83-1.16); PROTIME(PATIENT) 20.6 SEC (12.0-15.0)
--- NOTE | 2018-09-06 08:15 | SOAPPROG ---
SOAP Progress Note Assessment/Plan: Assessment: POD#4 redo median sternotomy, takedown of adhesions on rt fem-fem CPB, redo TVR w #29 bioprosthesis, explant transvenous RV lead, implant RV epicardial leads x 2 tunneled to existing pacer pocket, pacer pocket revision with connection of new RV lead and reprogramming of base rate to DDD 90, spare RV lead capped and coiled under generator, primary repair rt femoral vessels after decannulation. Prosthetic valve failure w severe TR - Exacerbated by transvalvular pacer lead ( see pics in chart). New bioprosthesis implanted. CTs and TCPWs out. Antithrombotic prophylaxis with Coumadin initiated. Target INR 2-3, duration 2 mo. Valvular cardiomyopathy with RVSD and 3 lpm nocturnal O2 dependence- Preserved LV systolic fx and mild RV dysfx evident intraop. from CPB on dobutamine and levo. Successfully weaned off all pressor support and extubated by POD#1. Significant volume overload w escalating doses of lasix to achieve neg fluid balance. Consider IV NTG for pulm vasodilatation. Acute expected blood loss anemia with coagulopathy - Stable s/p 2u FFP, 2u Plt, and 2u PRBC. VTE prophylaxis with SCDs and coumadin. Presence of dual chamber permanent pacemaker - for hx CHB. New epicardial RV leads placed. Placement of LV lead impeded by dense scar tissue. Lower pacer rate inc to 90 for optimized hemodynamics. Brief PSVT/AF while on levo controlled with IV amio. Maintenance amio only if recurrent arrhythmia. Adjunctive BB as allowed by BP. Presence of bioprosthetic mitral valve - Function intact. Surveillance per cards. Plan: Intensify diuresis - IV lasix 80 mg BID. Decrease coumadin to 2.5 mg today. Baseline postop echo today. Inc activity as tolerated. 09/06/18 08:14 Subjective: Still struggling to catch her breath. Poor exercise tolerance. Restless legs Objective: Vital Signs Temp Pulse Resp BP Pulse Ox 36.7 C 93 19 121/54 H 89 L 09/06/18 06:59 09/06/18 06:59 09/06/18 06:59 09/06/18 06:59 09/06/18 06:59 Microbiology 09/02/18 15:00 Gram Stain - Final Heart - Other Laboratory Results 09/06/18 05:25 09/06/18 05:25 09/05/18 09/06/18 09/07/18 05:59 05:59 05:59 Intake Total 1108 990 Output Total 800 2300 Balance 308 -1310 PT 20.6 SEC (12.0-15.0) H 09/06/18 05:25 INR 1.87 (0.83-1.16) H 09/06/18 05:25 Apaced Uptrending SBPs 5-8 lpm suppl O2 req CXR-> inc patchy infiltrates bilat, no sig pleural effusions Improved UOP with 80 IV lasix. Still +8 kg overall. Physical Exam - Physical Exam General Appearance: alert, mild distress (anxious) Respiratory: crackles (diffuse) Cardiac/Chest: regular rate, rhythm, other (Sternotomy and left pacer site CDI) Abdomen: non-tender, soft Skin: warm/dry Extremities: swelling (1+ gen) ICD10 Worksheet Patient Problems: Problems Problem Status Onset Acute blood loss anemia Acute Coagulopathy Acute Prosthetic valve failure Acute S/P tricuspid valve replacement Acute ~09/02/18 s/p explant transvenous RV lead Acute ~09/02/18 s/p placement RV epicardial lead Acute ~09/02/18 Dependence on nocturnal oxygen therapy Chronic History of tricuspid valve replacement with bioprosthetic valve Chronic Presence of permanent cardiac pacemaker Chronic History of mitral valve prosthesis Chronic
[2018-09-06] MEDS: FLUoxetine 20 MG CAP PO SCH (08:36)
[2018-09-06] MEDS: ASPIRIN EC 81 MG TAB PO SCH (08:36)
[2018-09-06] MEDS: PANTOPRAZOLE SODIUM 40 MG TAB PO SCH (08:36)
[2018-09-06] MEDS: FUROSEMIDE 100 MG/10 ML VIAL IVP SCH ×2 (08:36→14:38)
[2018-09-06] MEDS: ASCORBIC ACID 500 MG TAB PO SCH (08:36)
[2018-09-06] MEDS: CYANO/VITAMIN B12 1000 MCG TAB PO SCH (08:36)
[2018-09-06] MEDS: GLUCOSAMINE SULF 500 MG CAP PO SCH (08:36)
[2018-09-06] MEDS: POTASSIUM CL 10 MEQ TAB PO SCH ×2 (08:37→14:38)
[2018-09-06] MEDS: OXYCODONE/APAP 5/325 TAB PO PRN ×3 (08:37→16:57)
[2018-09-06] MEDS: cycloSPORINE 0.05% 30 DROPERETTE/BOX EACHEYE SCH (08:49)
[2018-09-06] MEDS: Estradiol [Vagifem] 10 MCG VG SCH (08:50)
[2018-09-06] MEDS: SENNOSIDES/DOCUSATE SODIUM TAB PO SCH ×2 (08:50→19:51)
[2018-09-06] MEDS: ESTRADIOL VIVELLE 0.075 MG PATCH TD SCH (09:23)
--- NOTE | 2018-09-06 15:53 | ECHO ---
[email or web address] [address] [address] Main: [phone] Echocardiography Examination Transthoracic Name: KRISTIE TOBIAS MR#: [id number] Study Date: 09/06/2018 Study Time: 07:50 AM Date of : 1950 Age: 68 year(s) Height: 157.5 cm (62 in.) Weight: 69.4 kg (153 lb.) BSA: 1.71 m2 Gender: Female Examination: Echo Contrast: Image Quality: Adequate Rhythm: Heart Rate: BP: 121 mmHg/54 mmHg Indication: baseline postop echo, s/p redo TVR#29 Hardwick magna bioprosthesis Procedure Staff Referring Physician: Broker: Milagros Mark RDCS Reading Physician: Lissette Hua MD Requesting Provider: Ordering Physician: Barbra Arevalo Indication: baseline postop echo, s/p redo TVR#29 Hardwick magna bioprosthesis Measurements Chambers AV/MV Label Value Normal Value Label Value Normal Value LVOTd 1.8 cm (1.8cm - 2cm) AV PGmax 6 mmHg LVOT VTI 12.6 cm (18cm - 22cm) AV PGmean 4 mmHg LVDd, 2D 4 cm (3.9cm - 5.3cm) AV Vmax 1.26 m/s LVDs, 2D 2.4 cm (2.1cm - 4cm) SHERMAN (VTI) 1.5 cm2 IVSd, 2D 1.3 cm (0.6cm - 1.1cm) MV E Vmax 2.1 m/s LVPWd, 2D 0.9 cm MV A Vmax 0.57 m/s LVEF, 2D 70 % (54% - 74%) MV E/A 3.68 LVOT PGmean 1 mmHg MV DT 165 ms LVOT Vmean 0.48 m/s MV VTI 41.2 cm LADs, 2D 3.2 cm (2.7cm - 3.8cm) MVA D (continuity eq.) 0.8 cm2 Additional Vessels MV PGmax 22 mmHg Label Value Normal Value MV PGmean 9 mmHg AoAsc 3 cm MV PHT 0.05 s AoRoot, 2D 2.9 cm (1.4cm - 2.6cm) MVA PHT 4.3 cm2 IVC 2.3 cm (1.2cm - 2.3cm) MV PHT 51 ms TV/PV Label Value Normal Value RA Pressure 5 mmHg RVSP 43 mmHg Patient: KRISTIE TOBIAS Study Date: 09/06/2018 Page 1 of 3 07:50 AM TR Pmax 38 mmHg TR Vmax 3.08 m/s TV PGmax 15 mmHg TV PGmean 8 mmHg TV Vmax 1.96 m/s (0.3m/s - 0.7m/s) TV Vmax, Caliper 1.96 m/s (0.3m/s - 0.7m/s) TV Vmean 1.24 m/s TV VTI 28 cm PV PGmax 3 mmHg PV Vmax, Caliper 0.83 m/s (0.6m/s - 0.9m/s) Conclusions 1. The left ventricle is normal in size and systolic function. Ejection fraction is approximately 55%. Normal wall motion. 2. The right ventricle is mildly dilated with mildly reduced systolic function. Pacing /ICD wire seen. 3. The right atrium is janp-[id number] dilated. 4. A bioprosthetic mitral valve is in place. Mild regurgitation. 5. Tricuspid valve bioprosthesis is well seated. There is mild regurgitation. Mean transvalvular pressure is 8 mm of mercury. Estimated RV systolic pressure is 43 mm of mercury. 6. Compared with 08/05/2018 the tricuspid valve prosthesis has been re-replaced. Findings Left Ventricle: Left ventricle is normal in size. Normal global systolic left ventricular function. EF range is estimated at 55 % - 60 %. There are no regional wall motion abnormalities. Right Ventricle: Mildly dilated right ventricle. Right ventricular systolic function is mildly reduced. There is a pacing/ICD wire present in the right ventricle. Left Atrium: The left atrium is normal in size. Right Atrium: The right atrium is mildly to moderately dilated. Mitral Valve: A bioprosthetic mitral valve is in place. The prosthetic mitral valve leaflets appear normal. Prosthetic mitral valve orifice motion is normal. There is mild perivalvular regurgitation. Aortic Valve: Aortic leaflets are structurally normal. No significant aortic valve regurgitation. There is no aortic stenosis. Tricuspid Valve: A bioprosthesis is present in the tricuspid valve. The prosthetic tricuspid valve is normal. Tricuspid valve prosthesis function is normal. Mild prosthesis regurgitation. Right Ventricular systolic pressure is measured at 43 mmHg. Pulmonary artery pressure is mildly increased. Aorta: The aortic root size in 2D measures 2.9 cm. The ascending aorta measures 3.0 cm. Aorta Measurements AoRoot, 2D is 2.9 cm. IVC: The inferior vena cava is mildly dilated. Pericardium: Trivial pericardial effusion. Exam Details Patient: KRISTIE TOBIAS Study Date: 09/06/2018 Page 2 of 3 07:50 AM Procedure Ordered: Echo Procedure Status: Routine study Image Quality: Adequate Facility Location: Cardiac Echo 1 (No Signature Object) Patient: KRISTIE TOBIAS Study Date: 09/06/2018 Page 3 of 3 07:50 AM [id number]
[2018-09-06] MEDS ORDERED: WARFARIN SODIUM 2.5 MG TAB PO ONE (16:00)
--- NOTE | 2018-09-06 16:37 | ASMTCMCOM ---
CM Note CM Note Notes: CM discussed with RN. CM with pt and . Therapies recommends home care. Pt sister is flying in from [place]. [place] [address]. CM broadly discussed SNF rehab, will rely on therapy evals and direction from surgical team for dispo plan. Pt reports that she has home O2 ([employer]). CM to follow. Plan: TBD Date Signed: 09/06/2018 04:36 PM Electronically Signed By:Marie Regalado
[2018-09-07] MEDS: OXYCODONE/APAP 5/325 TAB PO PRN ×2 (05:52→20:34)
[2018-09-07 06:28] LABS: INR 4.62 (0.83-1.16); PROTIME(PATIENT) 41.2 SEC (12.0-15.0)
--- NOTE | 2018-09-07 07:59 | SOAPPROG ---
SOAP Progress Note Assessment/Plan: Assessment: POD#5 Redo median sternotomy, takedown of adhesions on rt fem-fem CPB, redo TVR w #29 bioprosthesis, explant transvenous RV lead, implant RV epicardial leads x 2 tunneled to existing pacer pocket, pacer pocket revision with connection of new RV lead and reprogramming of base rate to DDD 90, spare RV lead capped and coiled under generator, primary repair rt femoral vessels after decannulation. Prosthetic valve failure w severe TR - Exacerbated by transvalvular pacer lead ( see pics in chart). New bioprosthesis implanted. CTs and TCPWs out. Antithrombotic prophylaxis with Coumadin initiated. Target INR 2-3, duration 2 mo. INR today 4.6 (1.87). Will hold today's Coumadin dose. Baseline postop echo yesterday showed EF 55%, mild MR, well seated tricuspid valve prosthesis with mild TR and normal function, RVSP 43mmHg. Valvular cardiomyopathy with RVSD and 3 lpm nocturnal O2 dependence- Preserved LV systolic fx and mild RV dysfx evident intraop. from CPB on dobutamine and levo. Successfully weaned off all pressor support and extubated by POD#1. Significant volume overload improving, on IV Lasix. Acute expected blood loss anemia with coagulopathy - Stable s/p 2u FFP, 2u Plt, and 2u PRBC. VTE prophylaxis with SCDs and coumadin. Presence of dual chamber permanent pacemaker - for hx CHB. New epicardial RV leads placed. Placement of LV lead impeded by dense scar tissue. Lower pacer rate inc to 90 for optimized hemodynamics. Will reset to preop rate today. Brief PSVT/AF while on levo controlled with IV amio. Maintenance amio only if recurrent arrhythmia. Adjunctive BB as allowed by BP. Presence of bioprosthetic mitral valve - Function intact. Surveillance per cards. Plan: Decrease Lasix to 40mg IV BID. Hold Coumadin today. Biotene for dry mouth. Subjective: "I slept better. I had a good night." Patient reports suboptimal pain control improved with lidoderm patch. Objective: Vital Signs Temp Pulse Resp BP Pulse Ox 36.4 C 91 18 137/67 H 99 09/07/18 07:15 09/07/18 07:15 09/07/18 07:15 09/07/18 07:15 09/07/18 07:15 Microbiology 09/02/18 15:00 Gram Stain - Final Heart - Other Laboratory Results 09/06/18 05:25 09/07/18 05:56 09/06/18 09/07/18 09/08/18 05:59 05:59 05:59 Intake Total 990 1225 Output Total 2300 1975 Balance -1310 -750 PT 41.2 SEC (12.0-15.0) H 09/07/18 05:56 INR 4.62 (0.83-1.16) H 09/07/18 05:56 Physical Exam - Physical Exam General Appearance: WD/WN, alert, no apparent distress Neck: supple Respiratory: lungs clear, decreased breath sounds (right base), other (No wheezing, rhonchi. ) Cardiac/Chest: regular rate, rhythm, other (No murmurs, rubs. Sternum stable. Sternotomy c/d/i. ) Abdomen: normal bowel sounds, non-tender, soft, other (mild abdominal swelling) Skin: normal color, warm/dry Extremities: other (Warm, 1-2+ lower extremity pitting edema) Neuro/Psych: alert, normal mood/affect, oriented x 3 ICD10 Worksheet Patient Problems: Problems Problem Status Onset Acute blood loss anemia Acute Coagulopathy Acute Prosthetic valve failure Acute S/P tricuspid valve replacement Acute ~09/02/18 s/p explant transvenous RV lead Acute ~09/02/18 s/p placement RV epicardial lead Acute ~09/02/18 Dependence on nocturnal oxygen therapy Chronic History of tricuspid valve replacement with bioprosthetic valve Chronic Presence of permanent cardiac pacemaker Chronic History of mitral valve prosthesis Chronic
[2018-09-07] MEDS: PANTOPRAZOLE SODIUM 40 MG TAB PO SCH (09:19)
[2018-09-07] MEDS: FUROSEMIDE 100 MG/10 ML VIAL IVP SCH (09:19)
[2018-09-07] MEDS: GLUCOSAMINE SULF 500 MG CAP PO SCH (09:19)
[2018-09-07] MEDS: FLUoxetine 20 MG CAP PO SCH (09:19)
[2018-09-07] MEDS: CYANO/VITAMIN B12 1000 MCG TAB PO SCH (09:19)
[2018-09-07] MEDS: POTASSIUM CL 10 MEQ TAB PO SCH ×2 (09:19→15:18)
[2018-09-07] MEDS: SENNOSIDES/DOCUSATE SODIUM TAB PO SCH ×2 (09:20→20:40)
[2018-09-07] MEDS: ASCORBIC ACID 500 MG TAB PO SCH (09:20)
[2018-09-07] MEDS: cycloSPORINE 0.05% 30 DROPERETTE/BOX EACHEYE SCH (09:20)
[2018-09-07] MEDS: ASPIRIN EC 81 MG TAB PO SCH (09:21)
[2018-09-07] MEDS: LIDOCAINE 4%/MENTHOL 1% PATCH TD SCH (11:05)
[2018-09-07] MEDS ORDERED: BIOTENE DRY MOUTH ORAL RINSE 237 ML BTL MM PRN (12:38)
--- NOTE | 2018-09-07 13:05 | SOAPPROG ---
CHARLIE Progress Note Assessment/Plan: Assessment: Plan: Objective: Vital Signs Temp Pulse Resp BP Pulse Ox 36.6 C 94 20 120/67 85 L 09/07/18 11:00 09/07/18 11:00 09/07/18 11:00 09/07/18 11:00 09/07/18 11:20 Microbiology 09/02/18 15:00 Gram Stain - Final Heart - Other Laboratory Results 09/06/18 05:25 09/07/18 05:56 09/06/18 09/07/18 09/08/18 05:59 05:59 05:59 Intake Total 990 1225 300 Output Total 2300 1975 Balance -1310 -750 300 PT 41.2 SEC (12.0-15.0) H 09/07/18 05:56 INR 4.62 (0.83-1.16) H 09/07/18 05:56 ICD10 Worksheet Patient Problems: Problems Problem Status Onset Acute blood loss anemia Acute Coagulopathy Acute Prosthetic valve failure Acute S/P tricuspid valve replacement Acute ~09/02/18 s/p explant transvenous RV lead Acute ~09/02/18 s/p placement RV epicardial lead Acute ~09/02/18 Dependence on nocturnal oxygen therapy Chronic History of tricuspid valve replacement with bioprosthetic valve Chronic Presence of permanent cardiac pacemaker Chronic History of mitral valve prosthesis Chronic
[2018-09-07] MEDS: FUROSEMIDE 40 MG/4 ML VIAL IVP SCH (15:18)
[2018-09-07] MEDS: PATCH REMOVAL 1 EA PATCH TD SCH (20:40)
--- NOTE | 2018-09-08 08:22 | SOAPPROG ---
SOAP Progress Note Assessment/Plan: Assessment: POD#6 Redo median sternotomy, takedown of adhesions on rt fem-fem CPB, redo TVR w #29 bioprosthesis, explant transvenous RV lead, implant RV epicardial leads x 2 tunneled to existing pacer pocket, pacer pocket revision with connection of new RV lead and reprogramming of base rate to DDD 90, spare RV lead capped and coiled under generator, primary repair rt femoral vessels after decannulation. Prosthetic valve failure w severe TR - Exacerbated by transvalvular pacer lead ( see pics in chart). New bioprosthesis implanted. CTs and TCPWs out. Antithrombotic prophylaxis with Coumadin initiated. Target INR 2-3, duration 2 mo. INR today 3.7 (4.6). Will continue to hold today's Coumadin dose. Baseline postop echo showed EF 55%, mild MR, well seated tricuspid valve prosthesis with mild TR and normal function, RVSP 43mmHg. Valvular cardiomyopathy with RVSD and 3 lpm nocturnal O2 dependence- Preserved LV systolic fx and mild RV dysfx evident intraop. from CPB on Dobutamine and Levo. Successfully weaned off all pressor support and extubated by POD#1. Significant volume overload persists with patient still up 7kg from preop weight with significant lower extremity pitting edema. Will go back to Lasix 80mg IV BID. Acute expected blood loss anemia with coagulopathy - Stable s/p 2u FFP, 2u Plt, and 2u PRBC. VTE prophylaxis with SCDs and Coumadin. Presence of dual chamber permanent pacemaker - for hx CHB. New epicardial RV leads placed. Placement of LV lead impeded by dense scar tissue. Lower pacer rate inc to 90 for optimized hemodynamics, which was decreased back down to 70 yesterday. Brief PSVT/AF while on Levo controlled with IV Amio. Maintenance Amio only if recurrent arrhythmia. Adjunctive BB as allowed by BP. Presence of bioprosthetic mitral valve - Function intact. Surveillance per cards. Plan: Increase Lasix back to 80mg IV BID. Continue to hold Coumadin. Hold ASA while INR supratherapeutic. Likely ready for discharge to home tomorrow. Subjective: Patient reports good pain control. She is, however, concerned about her lower extremity edema since she never had this kind of edema in her legs preop. Objective: Vital Signs Temp Pulse Resp BP Pulse Ox 37.1 C 70 16 117/51 L 92 09/08/18 06:58 09/08/18 06:58 09/08/18 06:58 09/08/18 06:58 09/08/18 06:58 Laboratory Results 09/06/18 05:25 09/08/18 06:10 09/07/18 09/08/18 09/09/18 05:59 05:59 05:59 Intake Total 1225 1780 Output Total 1975 1775 Balance -750 5 PT 41.2 SEC (12.0-15.0) H 09/07/18 05:56 INR 4.62 (0.83-1.16) H 09/07/18 05:56 Physical Exam - Physical Exam General Appearance: WD/WN, alert, no apparent distress Neck: supple Respiratory: lungs clear, normal breath sounds, other (No wheezing, rhonchi. ) Cardiac/Chest: regular rate, rhythm, other (No murmurs, rubs. Sternum stable, sternotomy c/d/i. ) Abdomen: normal bowel sounds, non-tender, soft, other (Mild abdominal distension. ) Skin: normal color, warm/dry Extremities: other (Warm, 2-3+ lower extremity pitting edema.) Neuro/Psych: alert, normal mood/affect, oriented x 3 ICD10 Worksheet Patient Problems: Problems Problem Status Onset Acute blood loss anemia Acute Coagulopathy Acute Prosthetic valve failure Acute S/P tricuspid valve replacement Acute ~09/02/18 s/p explant transvenous RV lead Acute ~09/02/18 s/p placement RV epicardial lead Acute ~09/02/18 Dependence on nocturnal oxygen therapy Chronic History of tricuspid valve replacement with bioprosthetic valve Chronic Presence of permanent cardiac pacemaker Chronic History of mitral valve prosthesis Chronic
[2018-09-08] MEDS: OXYCODONE/APAP 5/325 TAB PO PRN ×2 (09:27→20:36)
[2018-09-08] MEDS: LIDOCAINE 4%/MENTHOL 1% PATCH TD SCH (09:28)
[2018-09-08] MEDS: FUROSEMIDE 40 MG/4 ML VIAL IVP SCH ×2 (09:29→15:39)
[2018-09-08] MEDS: POTASSIUM CL 10 MEQ TAB PO SCH ×2 (09:29→15:39)
[2018-09-08] MEDS: GLUCOSAMINE SULF 500 MG CAP PO SCH (09:30)
[2018-09-08] MEDS: ASCORBIC ACID 500 MG TAB PO SCH (09:30)
[2018-09-08] MEDS: CYANO/VITAMIN B12 1000 MCG TAB PO SCH (09:30)
[2018-09-08] MEDS: PANTOPRAZOLE SODIUM 40 MG TAB PO SCH (09:30)
[2018-09-08] MEDS: FLUoxetine 20 MG CAP PO SCH (09:30)
[2018-09-08] MEDS: SENNOSIDES/DOCUSATE SODIUM TAB PO SCH ×2 (09:30→20:39)
[2018-09-08 09:34] LABS: INR 3.65 (0.83-1.16); PROTIME(PATIENT) 34.4 SEC (12.0-15.0)
[2018-09-08] MEDS: ASPIRIN EC 81 MG TAB PO SCH (09:39)
[2018-09-08] MEDS ORDERED: POTASSIUM CL 10 MEQ TAB PO ONE (11:15)
[2018-09-08] MEDS: BIOTENE DRY MOUTH ORAL RINSE 237 ML BTL MM SCH ×3 (11:16→20:37)
[2018-09-08] MEDS: cycloSPORINE 0.05% 30 DROPERETTE/BOX EACHEYE SCH (15:42)
--- NOTE | 2018-09-08 16:17 | PDCARPN ---
Cardiology Progress Note Chief Complaint: RV lead revision Assessment/Plan: Assessment: 1. PM interogation repeated today. Rate had been decreased yesterday to 70bpm. RA lead sensing significantly decreased from prior checks before surgery. P wave had been 2.0 or greater. Now .3mv and mostly Twave and R wave farfield sensing. At most, intermittent capture at 7.5V at 1ms, although that is not clear. She may be in AF with fine fib waves. Reviewed with Dr. Soares. Reprogrammed to VVIcls to save battery. Longevity with out put at 7.5V was 6 months. Now , 3 years. RV capture threshold good, .8V.She will f/u in device clinic in 2 weeks. Plan: 09/08/18 16:09 09/08/18 16:17 Objective: Vital Signs (8 Hrs) Temp Pulse Resp BP Pulse Ox 09/08/18 15:44 36.6 C 70 16 132/72 H 94 09/08/18 11:54 36.4 C 70 16 121/59 H 93 Intake/Output (24 Hrs) 09/07/18 09/08/18 09/09/18 05:59 05:59 05:59 Intake Total 1221779 Output Total 1974 1774 Balance -750 5 Intake: Oral (ml) 1220 Output: Urine (ml) 1974 1774 Toilet 1974 1774 Other: Weight 68.2 kg 67.5 kg Intake Quantity Yes Sufficient Number of Stools Toilet 1 Result Diagrams: 09/06/18 05:25 09/08/18 06:10 ICD10 Worksheet Patient Problems: Problems Problem Status Onset Acute blood loss anemia Acute Coagulopathy Acute Prosthetic valve failure Acute S/P tricuspid valve replacement Acute ~09/02/18 s/p explant transvenous RV lead Acute ~09/02/18 s/p placement RV epicardial lead Acute ~09/02/18 Dependence on nocturnal oxygen therapy Chronic History of tricuspid valve replacement with bioprosthetic valve Chronic Presence of permanent cardiac pacemaker Chronic History of mitral valve prosthesis Chronic
--- NOTE | 2018-09-08 16:30 | ASMTCMCOM ---
CM Note CM Note Notes: Met with Pt and discussed OT/PT recommendation for SNF and discharge planning. Pt refused SNF saying it was not "her first rodeo" with surgery. 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 Pt did agree to have HHC and used [facility] ([facility]) about 1 year ago. CM sent Referral to [facility] and Called Steffi ([phone]) to review. CM available for needs. PLAN: Likely home with HHC Date Signed: 09/08/2018 04:30 PM Electronically Signed By:Latricia Palomo
--- NOTE | 2018-09-08 17:03 | ASMTCMCOM ---
CM Note CM Note Notes: CM heard from [facility] Steffi and the [facility] does not have an RN available but have coverage for OT/PT. Since Pt is not discharging right away, CM can check with Pt/family to see if [facility] can be used. If no RN needed then we can go with [facility]. PLAN: Discharge with [facility] Date Signed: 09/08/2018 05:03 PM Electronically Signed By:Latricia Palomo
[2018-09-08] MEDS: PATCH REMOVAL 1 EA PATCH TD SCH (20:39)
[2018-09-09] MEDS: BIOTENE DRY MOUTH ORAL RINSE 237 ML BTL MM SCH ×4 (05:16→20:25)
[2018-09-09 05:41] LABS: INR 2.74 (0.83-1.16); PROTIME(PATIENT) 27.6 SEC (12.0-15.0)
--- NOTE | 2018-09-09 07:21 | SOAPPROG ---
SOAP Progress Note Assessment/Plan: POD #7: Redo median sternotomy, takedown of adhesions on rt fem-fem CPB, redo TVR w #29 bioprosthesis, explant transvenous RV lead, implant RV epicardial leads x 2 tunneled to existing pacer pocket, pacer pocket revision with connection of new RV lead and reprogramming of base rate to DDD 90, spare RV lead capped and coiled under generator, primary repair rt femoral vessels after decannulation. Prosthetic valve failure w severe TR - Exacerbated by transvalvular pacer lead ( see pics in chart). New bioprosthesis implanted. CTs and TCPWs out. Antithrombotic prophylaxis with Coumadin initiated. Target INR 2-3, duration 2 mo. Baseline postop echo showed EF 55%, mild MR, well seated tricuspid valve prosthesis with mild TR and normal function, RVSP 43mmHg. Valvular cardiomyopathy with RVSD and 3 lpm nocturnal O2 dependence- Preserved LV systolic fx and mild RV dysfx evident intraop. from CPB on Dobutamine and Levo. Successfully weaned off all pressor support and extubated by POD#1. Significant volume overload persists. Will start Demadex for outpatient mgmt. Acute expected blood loss anemia with coagulopathy - Stable s/p 2u FFP, 2u Plt, and 2u PRBC. VTE prophylaxis with SCDs and Coumadin. Presence of dual chamber permanent pacemaker - for hx CHB. New epicardial RV leads placed. Placement of LV lead impeded by dense scar tissue. Lower pacer rate inc to 90 for optimized hemodynamics, now decreased back down to 70 yesterday. Brief PSVT/AF while on Levo controlled with IV Amio. Maintenance Amio only if recurrent arrhythmia. Adjunctive BB as allowed by BP. Presence of bioprosthetic mitral valve - Function intact. Surveillance per cards. DVT prophylaxis - SCDs. Disposition - plan for home tomorrow with services. Subjective: Denies pain/SOB. Happy to possibly be going home tomorrow. Objective: Vital Signs Temp Pulse Resp BP Pulse Ox 36.6 C 72 18 118/69 99 09/09/18 04:00 09/09/18 04:00 09/09/18 04:00 09/09/18 04:00 09/09/18 04:00 Laboratory Results 09/06/18 05:25 09/09/18 05:20 09/08/18 09/09/18 09/10/18 05:59 05:59 05:59 Intake Total 1780 880 Output Total 1775 1050 Balance 5 -170 PT 27.6 SEC (12.0-15.0) H 09/09/18 05:20 INR 2.74 (0.83-1.16) H 09/09/18 05:20 Physical Exam - Physical Exam General Appearance: WD/WN, alert, no apparent distress EENT: No scleral icterus (R), No scleral icterus (L) Neck: normal inspection Respiratory: No respiratory distress Cardiac/Chest: regular rate, rhythm Abdomen: non-tender, soft, No distended Skin: normal color, warm/dry Extremities: pedal edema Neuro/Psych: no motor/sensory deficits, alert, normal mood/affect, oriented x 3 ICD10 Worksheet Patient Problems: Problems Problem Status Onset Acute blood loss anemia Acute Coagulopathy Acute Prosthetic valve failure Acute S/P tricuspid valve replacement Acute ~09/02/18 s/p explant transvenous RV lead Acute ~09/02/18 s/p placement RV epicardial lead Acute ~09/02/18 Dependence on nocturnal oxygen therapy Chronic History of tricuspid valve replacement with bioprosthetic valve Chronic Presence of permanent cardiac pacemaker Chronic History of mitral valve prosthesis Chronic
[2018-09-09] MEDS: ASPIRIN EC 81 MG TAB PO SCH (08:35)
[2018-09-09] MEDS: FUROSEMIDE 40 MG/4 ML VIAL IVP SCH (08:35)
[2018-09-09] MEDS: GLUCOSAMINE SULF 500 MG CAP PO SCH (08:35)
[2018-09-09] MEDS: POTASSIUM CL 10 MEQ TAB PO SCH ×2 (08:36→16:41)
[2018-09-09] MEDS: FLUoxetine 20 MG CAP PO SCH (08:36)
[2018-09-09] MEDS: PANTOPRAZOLE SODIUM 40 MG TAB PO SCH (08:36)
[2018-09-09] MEDS: SENNOSIDES/DOCUSATE SODIUM TAB PO SCH ×2 (08:37→21:01)
[2018-09-09] MEDS: ASCORBIC ACID 500 MG TAB PO SCH (08:37)
[2018-09-09] MEDS: CYANO/VITAMIN B12 1000 MCG TAB PO SCH (08:37)
[2018-09-09] MEDS: cycloSPORINE 0.05% 30 DROPERETTE/BOX EACHEYE SCH (08:40)
[2018-09-09] MEDS: Estradiol [Vagifem] 10 MCG VG SCH (08:40)
[2018-09-09] MEDS: LIDOCAINE 4%/MENTHOL 1% PATCH TD SCH (08:41)
[2018-09-09] MEDS: ESTRADIOL VIVELLE 0.075 MG PATCH TD SCH (10:16)
[2018-09-09] MEDS: OXYCODONE/APAP 5/325 TAB PO PRN ×2 (11:18→20:24)
--- NOTE | 2018-09-09 14:39 | ASMTCMCOM ---
CM Note CM Note Notes: CM met w/ pt for dispo planning. Pt continues to refuse SNF. CM spoke to [facility] and they are unable to clinical staff pharmacist. CM sent out multiple HC referrals to see if they can take her. Pt lives in [facility] [place] [facility]. CM confirmed pts address, phone number and PCP. CM spoke to BIJAN Miranda about this case. Anticipate d/c for tomorrow. CM to follow. Plan: HH; PT, OT, RN Date Signed: 09/09/2018 02:38 PM Electronically Signed By:JONAS Balderas
[2018-09-09] MEDS ORDERED: TORSEMIDE 20 MG TAB PO SCH (15:00)
[2018-09-09] MEDS ORDERED: WARFARIN SODIUM 1 MG TAB PO ONE (16:00)
[2018-09-09] MEDS: PATCH REMOVAL 1 EA PATCH TD SCH (21:01)
[2018-09-10] MEDS: BIOTENE DRY MOUTH ORAL RINSE 237 ML BTL MM SCH ×2 (06:14→12:40)
[2018-09-10 06:26] LABS: INR 2.37 (0.83-1.16); PROTIME(PATIENT) 24.7 SEC (12.0-15.0)
--- NOTE | 2018-09-10 06:45 | SOAPPROG ---
SOAP Progress Note Assessment/Plan: POD #8: Redo median sternotomy, takedown of adhesions on rt fem-fem CPB, redo TVR w #29 bioprosthesis, explant transvenous RV lead, implant RV epicardial leads x 2 tunneled to existing pacer pocket, pacer pocket revision with connection of new RV lead and reprogramming of base rate to DDD 90, spare RV lead capped and coiled under generator, primary repair rt femoral vessels after decannulation. Prosthetic valve failure w severe TR - Exacerbated by transvalvular pacer lead ( see pics in chart). New bioprosthesis implanted. CTs and TCPWs out. Antithrombotic prophylaxis with Coumadin initiated. Target INR 2-3, duration 2 mo. Baseline postop echo showed EF 55%, mild MR, well seated tricuspid valve prosthesis with mild TR and normal function, RVSP 43mmHg. Valvular cardiomyopathy with RVSD and 3 lpm nocturnal O2 dependence- Preserved LV systolic fx and mild RV dysfx evident intraop. from CPB on Dobutamine and Levo. Successfully weaned off all pressor support and extubated by POD#1. Significant volume overload persists. Will start Demadex for outpatient mgmt. Acute expected blood loss anemia with coagulopathy - Stable s/p 2u FFP, 2u Plt, and 2u PRBC. VTE prophylaxis with SCDs and Coumadin. Presence of dual chamber permanent pacemaker - for hx CHB. New epicardial RV leads placed. Placement of LV lead impeded by dense scar tissue. Lower pacer rate inc to 90 for optimized hemodynamics, now decreased back down to 70 yesterday. Brief PSVT/AF while on Levo controlled with IV Amio. Maintenance Amio only if recurrent arrhythmia. Adjunctive BB as allowed by BP. Presence of bioprosthetic mitral valve - Function intact. Surveillance per cards. DVT prophylaxis - SCDs. Disposition - Home today with services. Subjective: Feels well. Breathing better this morning. Pain well-controlled. Denies SOB. Objective: Vital Signs Temp Pulse Resp BP Pulse Ox 36.8 C 72 14 117/61 91 L 09/09/18 23:20 09/10/18 04:55 09/10/18 04:55 09/09/18 23:20 09/10/18 04:55 Microbiology 09/02/18 15:00 Gram Stain - Final Heart - Other Anaerobic Culture - Final Laboratory Results 09/06/18 05:25 09/10/18 05:40 09/09/18 09/10/18 09/11/18 05:59 05:59 05:59 Intake Total 880 1360 Output Total 1050 3400 Balance -170 -2040 PT 24.7 SEC (12.0-15.0) H 09/10/18 05:40 INR 2.37 (0.83-1.16) H 09/10/18 05:40 Physical Exam - Physical Exam General Appearance: WD/WN, alert, no apparent distress EENT: No scleral icterus (R), No scleral icterus (L) Neck: normal inspection Respiratory: No respiratory distress Cardiac/Chest: regular rate, rhythm Abdomen: non-tender, soft, No distended Skin: normal color, warm/dry Extremities: pedal edema Neuro/Psych: no motor/sensory deficits, alert, normal mood/affect, oriented x 3 ICD10 Worksheet Patient Problems: Problems Problem Status Onset Acute blood loss anemia Acute Coagulopathy Acute Prosthetic valve failure Acute S/P tricuspid valve replacement Acute ~09/02/18 s/p explant transvenous RV lead Acute ~09/02/18 s/p placement RV epicardial lead Acute ~09/02/18 Dependence on nocturnal oxygen therapy Chronic History of tricuspid valve replacement with bioprosthetic valve Chronic Presence of permanent cardiac pacemaker Chronic History of mitral valve prosthesis Chronic
[2018-09-10] MEDS ORDERED: POTASSIUM CL 10 MEQ TAB PO SCH (09:00)
[2018-09-10] MEDS: ASCORBIC ACID 500 MG TAB PO SCH (09:38)
[2018-09-10] MEDS: SENNOSIDES/DOCUSATE SODIUM TAB PO SCH (09:38)
[2018-09-10] MEDS: FLUoxetine 20 MG CAP PO SCH (09:38)
[2018-09-10] MEDS: CYANO/VITAMIN B12 1000 MCG TAB PO SCH (09:38)
[2018-09-10] MEDS: PANTOPRAZOLE SODIUM 40 MG TAB PO SCH (09:38)
[2018-09-10] MEDS: ASPIRIN EC 81 MG TAB PO SCH (09:39)
[2018-09-10] MEDS: GLUCOSAMINE SULF 500 MG CAP PO SCH (09:39)
--- NOTE | 2018-09-10 09:41 | PDIAF ---
- Diagnosis Diagnosis: redo TVR w #29 bioprothesis, explant RV lead, implant RV lead Code Status: Full Code - Medication Management Discharge Medications: electronically signed and located in the Home Medication List. PICC Care - Routine: N/A - Orders Services needed: Registered Nurse, Physical Therapy, Occupational Therapy Oxygen: 2 LPM Diet Recommendation: cardiac -low fat low salt, fluid restriction (use comment for amount) (1.5 L per day) Diet Texture: Regular Texture Diet, Thin Liquids, Meds Whole w/Liquids Weigh Patient: daily Moraes: No Additional Instructions: Discharge Instructions: Call [facility] cardiac rehab to enroll in phase 2 classes if not already arranged. Sternal precautions x 4 weeks. Avoid lifting > 10lbs with an outstretched arm. Avoid push/pull activities. No driving until cleared by surgery. Elevate low legs at rest. Avoid prolonged standing or dangling. Cleanse wounds once daily with soap and water. Avoid immersion (pool, hot tub, bath) until fully healed. Leave all wounds open to air. Avoid creams or ointments until fully healed. Log daily vital signs once home: weight, heart rate, blood pressure, and pulse oximetry if on oxygen. Call [facility] for weight gain > 5lbs or worsening leg swelling. Call [facility] for resting heart rate > 120 OR < 50. Call [facility] for systolic blood pressure consistently < 90 or > 150. Ok to use [id number] medications for bowel function or pain. Try to use ibuprofen minimally if on Coumadin. Chest x-ray Instructions: Please obtain a chest xray prior to surgical appointment. Chest x-rays dont require an appointment. Come to the Emergency Room entrance at the [facility] location. Sign in at the computer kiosk in the entryway. You will be given a number and may sit in the waiting area until called. You will be registered and directed to the Imaging desk on the 1st floor. This process can take up to an hour. Make sure you allow enough time before your appointment to have your x-ray taken. - Labs/Radiology PT/INR Date: 09/11/18 (Measure daily for INR goal 2-3 (call [facility] for dosing questions - [phone])) Imaging Orders: CXR at [facility] prior to surgical f/u - Follow Up Care Current Providers and Referrals: Denice Aguilar MD [Primary Care Provider] - Dick Eastman MD [Medical Doctor] - 09/16/18 10:45 am Valentín Aden MD [Medical Doctor] - follow up as scheduled (Follow up in 4- 6 weeks. Appt to be established during surgical visit) Gi Norwood NP [Certified Nurse Practioner] - (Pacemaker check 09/18/18 at 3 :30)
[2018-09-10] MEDS: LIDOCAINE 4%/MENTHOL 1% PATCH TD SCH (09:43)
[2018-09-10] MEDS: cycloSPORINE 0.05% 30 DROPERETTE/BOX EACHEYE SCH (09:45)
--- NOTE | 2018-09-10 09:48 | PDDCSUM ---
Discharge Summary Discharge Summary: ADMISSION DATE: 09/02/18 DISCHARGE DATE: 09/10/18 ADMISSION DIAGNOSES 1. Prosthetic tricuspid valve regurgitation 2. Presence of dual chamber permanent pacemaker 3. Presence of bioprosthetic mitral valve 4. Chronic class III diastolic CHF DISCHARGE DIAGNOSES 1. As above 2. Acute post-op blood loss anemia PROCEDURES 1. 09/02/18 (Medhat Torres): redo median sternotomy, takedown of adhesions on rt fem- fem CPB, redo TVR w #29 bioprosthesis, explant transvenous RV lead, implant RV epicardial leads x 2 tunneled to existing pacer pocket, pacer pocket revision with connection of new RV lead and reprogramming of base rate to DDD 90, spare RV lead capped and coiled under generator, primary repair rt femoral vessels after decannulation. HPI 68F with severe symptomatic bioprosthetic TR admitted for elective open heart surgery. HOSPITAL COURSE BY PROBLEM LIST 1. Prosthetic valve failure w severe TR - new bioprosthesis implanted. Antithrombotic prophylaxis with Coumadin in, target INR 2-3, duration 2 months. 2. Presence of dual chamber permanent pacemaker for h/o CHB -new epicardial RV leads placed. Placement of LV lead impeded by dense scar tissue. Lower pacer rate inc to 90 for optimized hemodynamics with reduction to 70 prior to d/c. 3. Presence of bioprosthetic mitral valve - function intact. Surveillance per cards. 4. Chronic class III diastolic CHF - medically optimized with diuretics. Beta- nicole avoided d/t low blood pressure. Further HF meds as tolerated. 5. Acute post-op blood loss anemia with coagulopathy - reversed with 2U FFP, 2U platelets, 2U PRBC. Stable. CONDITION Good DISPOSITION Home with services PERTINENT DISCHARGE CLINICAL INFORMATION Vitals: 131/63, 89 SR, 96% on 2 LPM O2, +6 Kg Exam: NAD, SR, No respiratory distress, ND, soft, NTP, BLE with +2 edema ACTIVITY Pt was instructed on activity limitations and which problems to call [facility] with. Please see Discharge Plan in chart for specifics. DISCHARGE MEDICATIONS As per [facility] PENDING STUDIES/LABS 1. CXR prior to surgical follow-up 2. Daily INR at per home visiting RN FOLLOW-UP 1. Dick Torres (CT Surgery), 09/16/18, 10:45 AM 2. Valentín Aden (Cardiology), to be arranged at surgical f/u 3. Pacemaker clinic, as directed
[2018-09-10] MEDS ORDERED: TORSEMIDE 20 MG TAB PO SCH (10:00)
--- NOTE | 2018-09-10 10:01 | ASMTLACE ---
LACE Length of stay for Answers: 7-13 days current admission Acuity / Level of Answers: Yes Care: Did the patient have an inpatient admission? Comorbidities - select Answers: Congestive heart failure all that apply Coronary Artery Disease Opioid dependence / Chronic pain Other Notes: HTN; Lupus # of Emergency department Answers: 1-2 visits in the last 6 months Score: 18 Date Signed: 09/10/2018 10:00 AM Electronically Signed By:JONAS Balderas
--- NOTE | 2018-09-10 10:06 | ASDISCHSUM ---
Discharge Information Plan Status:Home with Home Health Medically Cleared to Leave:09/10/2018 Discharge Date:09/10/2018 CM D/C Disposition: ADT D/C Disposition:[id number] Projected Discharge Date:09/10/2018 11:00 AM Transportation at D/C: Discharge Delay Reason: Follow-Up Date:09/10/2018 11:00 AM Discharge Slot: Final Diagnosis: Placement Information Referral Type:*Home Health Care Services Referral ID:[id number] Provider Name:[facility] (DN) Address 1:[address] [address] Address 2: City:[place] Selection Factors: State:[place] Patient Contact Information Contact Name:RAFAT Relationship: Address:[address] City:[facility] Phone: State/Zip Code:[place] [address] Email: Financial Information Financial Class:Medicare Primary Plan Desc:MEDICARE INPATIENT Primary Plan Number:[id number] Secondary Plan Desc:[facility] [place] [facility] Secondary Plan Number:[id number] Assessment Information LACE LACE Length of stay for Answers: 7-13 days current admission Acuity / Level of Answers: Yes Care: Did the patient have an inpatient admission? Comorbidities - select Answers: Congestive heart failure all that apply Coronary Artery Disease Opioid dependence / Chronic pain Other Notes: HTN; Lupus # of Emergency department Answers: 1-2 visits in the last 6 months Score: 18 Date Signed: 09/10/2018 10:00 AM Electronically Signed By:JONAS Balderas [facility] CM Progress Note CM Note CM Note Notes: Patient is post-op day #1 cardiac surgery. Met with patient to discuss home situation and possible disposition options when medically stable. Patient lives with her up in [facility]. Upon patient's admission in 2016, CM attempted to set-up HHC, although unclear if we were successful finding one. Patient indicated there was a HHC that came to her home, unable to recall the name of home care. 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 Therapy following, will continue to assess needs and discuss with surgery team. Plan: TBD Date Signed: 09/03/2018 04:27 PM Electronically Signed By:Lashell Quinones RN [facility] Progress Note CM Note CM Note Notes: 09/05/2018 Case Management Note Discussed with Barbra THAKKAR this morning. Anticipating independent d/c with cardiac outpatient rehab. Case Management d/c poc: independent with cardiac outpatient rehab. Case Management available if needs change. Date Signed: 09/05/2018 11:39 AM Electronically Signed By:Leigh Krishnamurthy RN [facility] Progress Note CM Note CM Note Notes: CM discussed with RN. CM with pt and . Therapies recommends home care. Pt sister is flying in from [place]. Pt [place] [address]. CM broadly discussed SNF rehab, will rely on therapy evals and direction from surgical team for dispo plan. Pt reports that she has home O2 ([employer]). CM to follow. Plan: TBD Date Signed: 09/06/2018 04:36 PM Electronically Signed By:Marie Sabine [facility] CM Progress Note CM Note CM Note Notes: Met with Pt and discussed OT/PT recommendation for SNF and discharge planning. Pt refused SNF saying it was not "her first rodeo" with surgery. 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 Pt did agree to have [facility] and used [facility] ([facility]) about 1 year ago. CM sent Referral to [facility] and Called Steffi ([phone]) to review. CM available for needs. PLAN: Likely home with [facility] Date Signed: 09/08/2018 04:30 PM Electronically Signed By:Latricia Palomo [facility] CM Progress Note CM Note CM Note Notes: CM heard from [facility] Steffi and the [facility] does not have an RN available but have coverage for OT/PT. Since Pt is not discharging right away, CM can check with Pt/family to see if [facility] can be used. If no RN needed then we can go with [facility]. PLAN: Discharge with [facility] Date Signed: 09/08/2018 05:03 PM Electronically Signed By:Latricia Palomo [facility] Progress Note CM Note CM Note Notes: CM met w/ pt for dispo planning. Pt continues to refuse SNF. CM spoke to [facility] and they are unable to staff readiness officer. CM sent out multiple HC referrals to see if they can take her. Pt lives in [facility]. CM confirmed pts address, phone number and PCP. CM spoke to BIJAN Miranda about this case. Anticipate d/c for tomorrow. CM to follow. Plan: HH; PT, OT, RN Date Signed: 09/09/2018 02:38 PM Electronically Signed By:JONAS Balderas Intervention Information
[2018-09-10 12:05] VITALS: BP 127/69
[2018-09-10] MEDS ORDERED: WARFARIN SODIUM 2.5 MG TAB PO SCH (16:00)
== END 2018-09-10 12:57 | disposition home health service (06) | DRG 220 ==
LOC: F1N 08:56 → F2N 13:33 → F2W 09-04 11:25
PROVIDERS: ADMIT Thoracic Surgery (Cardiothoracic Vascular Surgery); ATTEND Thoracic Surgery (Cardiothoracic Vascular Surgery)
PROC: 0JWT0PZ Revision of Cardiac Rhythm Related Device in Trunk Subcutaneous Tissue and Fascia, Open Approach (ICD-10-PCS; principal; 2018-09-02 11:45)
PROC: 02H60JZ Insertion of Pacemaker Lead into Right Atrium, Open Approach (ICD-10-PCS; principal; 2018-09-02 11:45)
PROC: 5A1221Z Performance of Cardiac Output, Continuous (ICD-10-PCS; principal; 2018-09-02 11:45)
PROC: 02PA0MZ Removal of Cardiac Lead from Heart, Open Approach (ICD-10-PCS; principal; 2018-09-02 11:45)
PROC: 02HK0JZ Insertion of Pacemaker Lead into Right Ventricle, Open Approach (ICD-10-PCS; principal; 2018-09-02 11:45)
PROC: 02RF08Z Replacement of Aortic Valve with Zooplastic Tissue, Open Approach (ICD-10-PCS; principal; 2018-09-02 11:45)
PROC: 30233N1 Transfusion of Nonautologous Red Blood Cells into Peripheral Vein, Percutaneous Approach (ICD-10-PCS; 2018-09-02 11:45)
PROC: 30233L1 Transfusion of Nonautologous Fresh Plasma into Peripheral Vein, Percutaneous Approach (ICD-10-PCS; 2018-09-02 11:45)
PROC: 30233R1 Transfusion of Nonautologous Platelets into Peripheral Vein, Percutaneous Approach (ICD-10-PCS; 2018-09-02 11:45)
DX: T82.09XA Other mechanical complication of heart valve prosthesis, initial encounter (principal); I07.1 Rheumatic tricuspid insufficiency; D62 Acute posthemorrhagic anemia; I11.0 Hypertensive heart disease with heart failure; I50.32 Chronic diastolic (congestive) heart failure; G47.30 Sleep apnea, unspecified; Z95.2 Presence of prosthetic heart valve; Z95.0 Presence of cardiac pacemaker
CPT/HCPCS: 82435-PO; 82565-PO; 82947-PO; 83605-ER; 84132-PO; 84295-PO; 84520-PO; 85014-ER; 97116-GP; 97162-GP; 97166-GO; 97530-GO; 97530-GP; 97535-GO; C1898; J0153; J0282; J0690; J1250; J1265; J1644; J1815; J1940; J2001; J2150; J2250; J2260; J2270; J2370; J2704; J2720; J2930; J3010; J3475; J3480; P9016; P9017; P9035; P9041

== ENCOUNTER → 2018-09-16 | Outpatient (CLI) | payer OTHER, BC ==
[~2018-09-16] MED LIST changes: -ADENOSINE 6 MG/2 ML VIAL ONE; -ALBUMIN 5% 250 ML BOTTLE IV ONE; -AMINOCAPROIC ACID 5 GM/20 ML VIAL ONE; -AMIODARONE HCL 150 MG/3 ML VIAL ONE; -CALCIUM CHLORIDE 1 GM/10 ML INJ ONE; -CARDIOPLEGIC SOLUTION 1,052.8 ML PF ONE; -CITRATE DEXTROSE SOLN 500 ML BAG ONE; -DOBUTamine 500 MG in D5W 250 ML IV ONE; -DOBUTamine/DEXTROSE 250 ML IV ONE; -DOPamine/DEXTROSE 400 MG/250 ML BAG IV ONE; -HEPARIN 10,000 UNIT/10 ML MDV (1,000 UNIT/ML) ONE; -INSULIN REGULAR HUMAN 100 UNIT in NS 100 ML IV ONE; +LIDOCAINE 1% 300 MG/30 ML SDV ONE; -LIDOCAINE 2% 100 MG/5 ML SYR ONE; -MAGNESIUM SULFATE 1 GM/2 ML VIAL ONE; -MANNITOL 25% 12.5 GM/50 ML VIAL IVP ONE; -MILRINONE/DEXTROSE/100 ML BAG IV ONE; -NA BICARBONATE 50 MEQ/50 ML VIAL ONE; -NITROGLYCERIN/D5W 50 MG/250 ML BOTTLE IV ONE; -NOREPINEPHRINE BITARTRATE 16 MG in NS 250 ML IV ONE; -PHENYLEPHRINE HCL 50 MG in NS 250 ML IV ONE; -PROTAMINE SULFATE 50 MG/5 ML VIAL IVP ONE; -SODIUM BICARBONATE 50 MEQ/50 ML SYR ONE; -ceFAZolin 1 GM VIAL ONE; -methylPREDNISolone SOD SUCC 1 GM/8 ML VIAL ONE; -niCARdipine/NACL/200 ML BAG IV ONE
== END ==
LOC: FIMAGING 09:48
PROVIDERS: ATTEND Thoracic Surgery (Cardiothoracic Vascular Surgery)
DX: Z98.890 Other specified postprocedural states (principal)

== ENCOUNTER 2018-09-18 21:24 | Inpatient (IN) | payer OTHER, BC ==
[2018-09-18 22:11] LABS: PLATELET COUNT 307 10^3/uL (150-400)
--- NOTE | 2018-09-18 22:14 | EDPHY ---
H & P Stated Complaint: SOB 2 weeks post open heart Time Seen by Provider: 09/18/18 21:36 HPI/ROS: HPI The patient presents with shortness of breath which has been progressive though became worse at about 2:00 p.m. This afternoon. On September 02 the patient was admitted to the hospital for tricuspid valve repair with new bioprosthesis implanted, pacemaker placement performed by Dr. Mayuri melgar. She was discharged on September 10. She had to have a left-sided thoracentesis performed for a pleural effusion which had occurred postoperatively on September 16. She was feeling much better after the procedure, however within the next 1 day she became more short of breath. Then, at 2:00 p.m. She became much more short of breath. She could only walk about 4-5 feet in her home before she became extremely short of breath. She describes a bandlike pain throughout her right chest wall which has been constant. She previously required 3 L of oxygen at night, however is now requiring 3 L of oxygen continuously and is feeling tachypneic. She also reports right lower extremity edema. She has a dry cough. She does not have a fever. REVIEW OF SYSTEMS 10 systems were reviewed and negative with the exception of the elements mentioned in the history of present illness. PMHx: Tricuspid valve repair, new bioprosthesis implanted, pacemaker placed on September 02, history of mitral valve repair, history of diastolic CHF, postoperative anemia requiring transfusion Soc Hx: Here with her , lives at home PHYSICAL General Appearance: Alert, tachypneic though able to speak full sentences Eyes: Pupils equal and round no pallor or injection ENT, Mouth: Mucous membranes moist Respiratory: Tachypneic, decreased breath sounds at both bases Cardiovascular: Regular rate and rhythm , murmur present Gastrointestinal: Abdomen is soft and non-tender, no masses, bowel sounds normal Neurological: A&O, moves all extremities Skin: Warm and dry, no rashes Musculoskeletal: Neck is supple non tender Extremities: Right lower extremity 2+ edema to knee, full range of motion Psychiatric: Patient is oriented X 3, there is no agitation Source: Patient Exam Limitations: No limitations - Personal History Current Tetanus/Diphtheria Vaccine: Yes Current Tetanus Diphtheria and Acellular Pertussis (TDAP): Yes Tetanus Vaccine Date: - Medical/Surgical History Hx Asthma: No Hx Chronic Respiratory Disease: Yes Hx Diabetes: No Hx Cardiac Disease: Yes Hx Renal Disease: No Hx Cirrhosis: No Hx Alcoholism: No Hx HIV/AIDS: No Hx Splenectomy or Spleen Trauma: No Other PMH: mitral valve replacement surgery, tricuspid valve replacement, lupus. ,chf, right lung injury in sugery, ulcer, stage II kidney disease - Social History Smoking Status: Never smoked Constitutional: Initial Vital Signs Temperature (C) 36.7 C 09/18/18 21:25 Heart Rate 82 09/18/18 21:25 Respiratory Rate 20 09/18/18 21:25 Blood Pressure 119/61 09/18/18 21:25 O2 Sat (%) 90 L 09/18/18 21:25 O2 Delivery Mode Nasal Cannula O2 (L/minute) 3 Allergies/Adverse Reactions: Sulfa (Sulfonamide Antibiotics) Allergy (Intermediate, Verified 09/18/18 21:25) Rash latex Allergy (Verified 09/18/18 21:25) ADHESIVE TAPE Allergy (Intermediate, Uncoded 09/18/18 21:25) Rash Home Medications: Medication Instructions Recorded Estradiol [Vivelle-Dot 0.075MG (*)] 0.075 mg TD MOFR 06/24/12 Herbals/Supplements -Info Only 1 each PO AD 06/24/12 Ascorbic Acid [Vitamin C 500 mg 500 mg PO DAILY 09/24/14 (*)] Cyanocobalamin [Vitamin B12 (*)] 1,000 mcg PO DAILY 09/24/14 Estradiol [VAGIFEM] 10 mcg VG MOFR 09/24/14 Fluoxetine HCl [Prozac 40 mg] 40 mg PO DAILY 09/24/14 Glucosamine Sulfate [Glucosamine 1,500 mg PO DAILY 09/24/14 Sulfate 500 MG (*)] Aspirin EC [Aspirin EC 81 mg (*)] 81 mg PO DAILY 02/11/15 Mirabegron [Myrbetriq] 25 mg PO BID 07/31/18 Omeprazole 20 mg PO DAILY 07/31/18 cycloSPORINE 0.05% [Restasis Opht 1 drop EACHEYE DAILY 07/31/18 Drops(*)] Acetaminophen [Tylenol 325mg (*)] 325 - 650 mg PO Q4HRS PRN tab 09/10/18 Lidocaine 4%/Menthol 1% [Icy Hot 1 patch TD DAILY patch 09/10/18 Lidocaine/Menthol 4%/1% Patch (*)] Potassium Cl [Klor-Con 10 meq (RX)] 40 meq PO DAILY #30 tab 09/10/18 Torsemide [Demadex] 40 mg PO DAILY AT 10AM #30 tab 09/10/18 Warfarin Sodium [Coumadin 2.5MG 2.5 mg PO DAILY AT 4PM #30 tab 09/10/18 (*)] oxyCODONE/APAP 5/325 [Percocet 0.5 - 1 tab PO Q6H PRN #20 tab 09/10/18 5/325 (*)] Medical Decision Making - Diagnostics EKG Interpretation: EKG: Complete interpretation has been separately recorded in the [employer] archive. Summary impression: Ventricularly paced complexes Imaging Results: Imaging Impressions Chest X-Ray 09/18/18 21:37 Impression: 1. Increasing small to moderate left pleural effusion and stable small right pleural effusion. 2. Worsening interstitial edema versus atypical pneumonia. CT angio of chest demonstrates no pulmonary embolism, mild cardiomegaly, interlobular septal thickening suggestive of diffuse interstitial edema with patchy airspace disease within the lungs which may represent pulmonary edema, pneumonia, and/or atelectasis, loculated moderate-sized right pleural effusion, moderately sized left pleural effusion, interpreted by direct Radiology. 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 Here, she is hypoxic, tachypneic, has decreased breath sounds to both lower lung tomas. She also has right lower extremity edema. Differential diagnosis includes recurrent pleural effusion, CHF in exacerbation , pneumonia, pulmonary embolism, atelectasis less likely. In the emergency department, patient had elevated troponin which is likely related to cardiac strain versus ACS given no chest pain. EKG is ventricularly paced so difficult to evaluate for ischemia. Labs revealed slightly worsening anemia, elevated BNP higher than previously elevated values, elevated D-dimer. Her chest x-ray showed that she does have a recurrent left-sided pleural effusion and now small right-sided pleural effusion with some atelectasis versus pneumonia of her right lung. Given her elevated D-dimer and right lower extremity edema and this abnormal chest x-ray CTA of her chest was ordered which showed no pulmonary embolism. After receiving oxygen via nasal cannula, the patient felt much better. She was no longer tachypneic and her sats were normal. I consulted with the patient 's primary cardiothoracic surgeon Dr. Eastman, he recommends diuresis overnight. The patient can have an echocardiogram in the morning given that her vital signs are stable. I consulted with the hospitalist Dr. Cole who will admit the patient. I have discussed the diagnosis and treatment plan with the patient and her at the bedside. - Data Points Laboratory Results: Laboratory Results 09/18/18 21:50 09/18/18 21:50 09/18/18 09/18/18 09/18/18 21:56 21:50 21:50 WBC RBC Hgb Hct MCV MCH MCHC RDW Plt Count MPV Neut % (Auto) Lymph % (Auto) [place] % (Auto) Eos % (Auto) Baso % (Auto) Nucleat RBC Rel Count Absolute Neuts (auto) Absolute Lymphs (auto) Absolute Monos (auto) Absolute Eos (auto) Absolute Basos (auto) Absolute Nucleated RBC Immature Gran % Immature Gran # PT 24.8 SEC H SEC (12.0-15.0) INR 2.38 H (0.83-1.16) APTT 38.6 SEC H SEC (23.0-38.0) D-Dimer 2.81 ug/mLFEU H ug/mLFEU (0.00-0.50) Sodium 131 mEq/L L mEq/L (135-145) Potassium 3.9 mEq/L mEq/L (3.5-5.2) Chloride 94 mEq/L L mEq/L (97-110) Carbon Dioxide 25 mEq/l mEq/l (22-31) Anion Gap 12 mEq/L mEq/L (6-14) BUN 29 mg/dL H mg/dL (7-23) Creatinine 0.9 mg/dL mg/dL (0.6-1.0) Estimated GFR > 60 Glucose 98 mg/dL mg/dL (70-100) Calcium 8.0 mg/dL L mg/dL (8.5-10.4) POC Troponin I 0.18 ng/mL H ng/mL (0.00-0.08) NT-Pro-B Natriuret Pep 3820 pg/mL H pg/mL (0-125) 09/18/18 21:50 WBC 8.51 10^3/uL 10^3/uL (3.80-9.50) RBC 2.88 10^6/uL L 10^6/uL (4.18-5.33) Hgb 8.9 g/dL L g/dL (12.6-16.3) Hct 27.6 % L % (38.0-47.0) MCV 95.8 fL fL (81.5-99.8) MCH 30.9 pg pg (27.9-34.1) MCHC 32.2 g/dL L g/dL (32.4-36.7) RDW 15.0 % % (11.5-15.2) Plt Count 307 10^3/uL 10^3/uL (150-400) MPV 10.7 fL fL (8.7-11.7) Neut % (Auto) 76.7 % H % (39.3-74.2) Lymph % (Auto) 10.0 % L % (15.0-45.0) [place] % (Auto) 9.6 % % (4.5-13.0) Eos % (Auto) 2.0 % % (0.6-7.6) Baso % (Auto) 0.9 % % (0.3-1.7) Nucleat RBC Rel Count 0.0 % % (0.0-0.2) Absolute Neuts (auto) 6.52 10^3/uL H 10^3/uL (1.70-6.50) Absolute Lymphs (auto) 0.85 10^3/uL L 10^3/uL (1.00-3.00) Absolute Monos (auto) 0.82 10^3/uL H 10^3/uL (0.30-0.80) Absolute Eos (auto) 0.17 10^3/uL 10^3/uL (0.03-0.40) Absolute Basos (auto) 0.08 10^3/uL 10^3/uL (0.02-0.10) Absolute Nucleated RBC 0.00 10^3/uL 10^3/uL (0-0.01) Immature Gran % 0.8 % % (0.0-1.1) Immature Gran # 0.07 10^3/uL 10^3/uL (0.00-0.10) PT INR APTT D-Dimer Sodium Potassium Chloride Carbon Dioxide Anion Gap BUN Creatinine Estimated GFR Glucose Calcium POC Troponin I NT-Pro-B Natriuret Pep Medications Given: Oxycodone/Acetaminophen (Percocet 5/325) 1 tab PO Q4HRS PRN PRN Reason: Pain, Severe Able to Take PO Stop: 09/29/18 01:50 Last Admin: 09/19/18 01:59 Dose: 1 tab Discontinued Medications Furosemide (Lasix Injection) 40 mg IVP EDNOW ONE Stop: 09/19/18 00:30 Last Admin: 09/19/18 01:54 Dose: 40 mg Point of Care Test Results: Chemistry 09/18/18 21:56 POC Troponin I 0.18 ng/mL H ng/mL (0.00-0.08) Departure - Departure Disposition: [facility] Inpatient Acute Clinical Impression: Hypoxia, Shortness of breath, History of tricuspid valve replacement with bioprosthetic valve Chest pain Qualifiers: Chest pain type: unspecified Qualified Code(s): R07.9 - Chest pain, unspecified Congestive heart failure Qualifiers: Heart failure type: unspecified Heart failure chronicity: acute Qualified Code( s): I50.9 - Heart failure, unspecified Condition: Fair
[2018-09-18 22:19] LABS: INR 2.38 (0.83-1.16); PROTIME(PATIENT) 24.8 SEC (12.0-15.0)
[2018-09-18] MEDS ORDERED: IOPAMIDOL (ISOVUE 370) 100 ML BTL IV ONE (23:10)
[2018-09-19] MEDS ORDERED: FUROSEMIDE 40 MG/4 ML VIAL IVP ONE (00:29)
[2018-09-19] MEDS ORDERED: ONDANSETRON DISINTEGRATING 4 MG TAB PO PRN (00:48)
[2018-09-19] MEDS ORDERED: ONDANSETRON 4 MG/2 ML VIAL IVP PRN (00:48)
[2018-09-19] MEDS ORDERED: ACETAMINOPHEN 325 MG TAB PO PRN (00:48)
--- NOTE | 2018-09-19 01:58 | PDGENHP ---
History and Physical - Chief Complaint Shortness of breath, swelling - History of Present Illness 68 yo F w/ recent tricuspid valve replacement, diastolic CHF, and CHF s/p PPM presents with swelling and shortness of breath. The patient had a recent revision of her tricuspid valve. She was discharged on 09/[address] Eastman on torsemide 40 mg PO BID. She felt reasonably well until today when she noted lower extremity edema upon waking. Throughout the day she developed SOB, orthopnea, and a sensation of fullness in her abdomen as well. She denies fevers. She coughs only when she lies flat. She has been compliant with her diuretic therapy and denies chest pain or palpitations. In the ED her work-up is notable for pulmonary edema, pleural effusions, elevated BNP, and indeterminate troponin. Her INR is therapeutic at 2.3 and a CTPE is negative for PE. She is being admitted for presumed CHF exacerbation and evaluation of her new tricuspid valve. Case discussed with ED physician Dr. De Leon; records reviewed and summarized above. History Information - Allergies/Home Medication List Allergies/Adverse Reactions: Sulfa (Sulfonamide Antibiotics) Allergy (Intermediate, Verified 09/18/18 21:25) Rash latex Allergy (Verified 09/18/18 21:25) ADHESIVE TAPE Allergy (Intermediate, Uncoded 09/18/18 21:25) Rash Home Medications: Estradiol [Vivelle-Dot 0.075MG (*)] 0.075 mg TD MOFR 06/24/12 [Last Taken ] Herbals/Supplements -Info Only 1 each PO AD 06/24/12 [Last Taken 09/01/18] Ascorbic Acid [Vitamin C 500 mg (*)] 500 mg PO DAILY 09/24/14 [Last Taken ] Cyanocobalamin [Vitamin B12 (*)] 1,000 mcg PO DAILY 09/24/14 [Last Taken ] Estradiol [VAGIFEM] 10 mcg VG MOFR 09/24/14 [Last Taken 09/01/18] Fluoxetine HCl [Prozac 40 mg] 40 mg PO DAILY 09/24/14 [Last Taken 09/01/18] Glucosamine Sulfate [Glucosamine Sulfate 500 MG (*)] 1,500 mg PO DAILY 09/24/14 [Last Taken 09/01/18] Aspirin EC [Aspirin EC 81 mg (*)] 81 mg PO DAILY 02/11/15 [Last Taken 09/01/18] Mirabegron [Myrbetriq] 25 mg PO BID 07/31/18 [Last Taken 09/01/18] Omeprazole 20 mg PO DAILY 07/31/18 [Last Taken 09/01/18] cycloSPORINE 0.05% [Restasis Opht Drops(*)] 1 drop EACHEYE DAILY 07/31/18 [Last Taken 09/01/18] I have personally reviewed and updated: family history, medical history - Past Medical History CHF Additional medical history: Complete heart block - Surgical History Reports: pacemaker/AICD Additional surgical history: Bioprosthetic MV and TV - Family History Positive for: CAD, myocardial infarction Additional family history: CHF - Social History Smoking Status: Never smoked Review of Systems Review of Systems: ROS: 10pt was reviewed & negative except for what was stated in HPI & below Physical Exam Physical Exam: Temp Pulse Resp BP Pulse Ox 36.5 C 83 20 112/73 95 09/19/18 01:30 09/19/18 01:30 09/19/18 01:30 09/19/18 01:30 09/19/18 01:30 O2 (L/minute) 3 Constitutional: no apparent distress, appears nourished Eyes: PERRL, EOMI Ears, Nose, Mouth, Throat: moist mucous membranes, no oral mucosal ulcers Cardiovascular: regular rate and rhythym, systolic murmur Respiratory: no respiratory distress, inspiratory crackles (Bibasilar) Gastrointestinal: normoactive bowel sounds, soft, non-tender abdomen Skin: warm, normal color Musculoskeletal: full muscle strength, no muscle tenderness Neurologic: AAOx3, CN II-XII Intact Psychiatric: interacting appropriately, not anxious Lab Data & Imaging Review 09/18/18 21:50 09/18/18 21:50 WBC 8.51 10^3/uL (3.80-9.50) 09/18/18 21:50 RBC 2.88 10^6/uL (4.18-5.33) L 09/18/18 21:50 Hgb 8.9 g/dL (12.6-16.3) L 09/18/18 21:50 Hct 27.6 % (38.0-47.0) L 09/18/18 21:50 MCV 95.8 fL (81.5-99.8) 09/18/18 21:50 MCH 30.9 pg (27.9-34.1) 09/18/18 21:50 MCHC 32.2 g/dL (32.4-36.7) L 09/18/18 21:50 RDW 15.0 % (11.5-15.2) 09/18/18 21:50 Plt Count 307 10^3/uL (150-400) 09/18/18 21:50 MPV 10.7 fL (8.7-11.7) 09/18/18 21:50 Neut % (Auto) 76.7 % (39.3-74.2) H 09/18/18 21:50 Lymph % (Auto) 10.0 % (15.0-45.0) L 09/18/18 21:50 [place] % (Auto) 9.6 % (4.5-13.0) 09/18/18 21:50 Eos % (Auto) 2.0 % (0.6-7.6) 09/18/18 21:50 Baso % (Auto) 0.9 % (0.3-1.7) 09/18/18 21:50 Nucleat RBC Rel Count 0.0 % (0.0-0.2) 09/18/18 21:50 Absolute Neuts (auto) 6.52 10^3/uL (1.70-6.50) H 09/18/18 21:50 Absolute Lymphs (auto) 0.85 10^3/uL (1.00-3.00) L 09/18/18 21:50 Absolute Monos (auto) 0.82 10^3/uL (0.30-0.80) H 09/18/18 21:50 Absolute Eos (auto) 0.17 10^3/uL (0.03-0.40) 09/18/18 21:50 Absolute Basos (auto) 0.08 10^3/uL (0.02-0.10) 09/18/18 21:50 Absolute Nucleated RBC 0.00 10^3/uL (0-0.01) 09/18/18 21:50 Immature Gran % 0.8 % (0.0-1.1) 09/18/18 21:50 Immature Gran # 0.07 10^3/uL (0.00-0.10) 09/18/18 21:50 PT 24.8 SEC (12.0-15.0) H 09/18/18 21:50 INR 2.38 (0.83-1.16) H 09/18/18 21:50 APTT 38.6 SEC (23.0-38.0) H 09/18/18 21:50 D-Dimer 2.81 ug/mLFEU (0.00-0.50) H 09/18/18 21:50 Sodium 131 mEq/L (135-145) L 09/18/18 21:50 Potassium 3.9 mEq/L (3.5-5.2) 09/18/18 21:50 Chloride 94 mEq/L (97-110) L 09/18/18 21:50 Carbon Dioxide 25 mEq/l (22-31) 09/18/18 21:50 Anion Gap 12 mEq/L (6-14) 09/18/18 21:50 BUN 29 mg/dL (7-23) H 09/18/18 21:50 Creatinine 0.9 mg/dL (0.6-1.0) 09/18/18 21:50 Estimated GFR > 60 09/18/18 21:50 Glucose 98 mg/dL (70-100) 09/18/18 21:50 Calcium 8.0 mg/dL (8.5-10.4) L 09/18/18 21:50 POC Troponin I 0.18 ng/mL (0.00-0.08) H 09/18/18 21:56 NT-Pro-B Natriuret Pep 3820 pg/mL (0-125) H 09/18/18 21:50 Imaging Review: Imaging Impressions Chest X-Ray 09/18/18 21:37 Impression: 1. Increasing small to moderate left pleural effusion and stable small right pleural effusion. 2. Worsening interstitial edema versus atypical pneumonia. Visualized and Interpreted EKG results: Yes EKG Interpretation: Positive for: other (V-paced) Assessment & Plan Assessment: 68 yo F w/ recent tricuspid valve replacement, diastolic CHF, and CHF s/p PPM presents with CHF exacerbation. Plan: 1. Chronic diastolic CHF with acute exacerbation - Patient presents with 1 day of increased swelling, pulmonary edema, and orthopnea. BNP [address] w/ pulmonary edema and bilateral effusions. She has been compliant with torsemide 40 mg PO BID, unclear if this could signal complication of recent tricuspid valve replacement. - Admit to PCU - Monitor on telemetry - S/p Lasix 40 mg IV x1, will continue 60 mg IV BID; titrate as necessary - TTE ordered - Monitor daily weights, I/Os BID - Cardiothoracic surgery consulted in the ED - Cardiology consultation placed in [facility] 2. Tricuspid valve replacement - Underwent redo bioprosthetic TV per Dr. Eastman on 09/02. - Continue warfarin, goal INR 2-3 - Monitor daily INR - TTE as above - Cardiothoracic surgery consulted 3. Elevated troponin - She denies acute chest pain; ECG with V-pacing so difficult to interpret. I suspect troponin elevation is related to demand ischemia from heart failure with possible contribution from recent cardiac surgery. - Monitor on telemetry, trend cardiac enzymes, obtain TTE - Cardiology consulted 4. CHF - S/p PPM - Monitor on telemetry 5. Hx bioprosthetic mitral valve 6. Normocytic anemia - Values relatively stable from prior. - Monitor CBC 7. Hyponatremia - Possibly related to hypervolemia, will monitor during diuresis. Diet - Cardiac Code - Full Ppx - warfarin Dispo - Admit under observation status
[2018-09-19] MEDS: OXYCODONE/APAP 5/325 TAB PO PRN ×2 (01:59→13:21)
[2018-09-19 04:37] LABS: PLATELET COUNT 285 10^3/uL (150-400)
[2018-09-19 04:43] LABS: INR 2.42 (0.83-1.16); PROTIME(PATIENT) 25.1 SEC (12.0-15.0)
--- NOTE | 2018-09-19 06:32 | SOAPPROG ---
SOAP Progress Note Assessment/Plan: Assessment: Recurrent left effusion. She has had this problem with her last surgery. Hypoxia. Plan: Will need a left thoracentesis today. If recurs, pleurodesis may necessary 09/19/18 06:29 Subjective: Severe dyspnea and hypoxia at home Objective: Vital Signs Temp Pulse Resp BP Pulse Ox 36.6 C 88 20 123/66 H 95 09/19/18 04:00 09/19/18 04:00 09/19/18 04:00 09/19/18 04:00 09/19/18 04:00 Laboratory Results 09/19/18 04:08 09/19/18 04:08 09/18/18 09/19/18 09/20/18 05:59 05:59 05:59 Intake Total 150 Balance 150 PT 25.1 SEC (12.0-15.0) H 09/19/18 04:08 INR 2.42 (0.83-1.16) H 09/19/18 04:08 ICD10 Worksheet Patient Problems: Problems Problem Status Onset Acute blood loss anemia Acute Coagulopathy Acute Prosthetic valve failure Acute S/P tricuspid valve replacement Acute ~09/02/18 s/p explant transvenous RV lead Acute ~09/02/18 s/p placement RV epicardial lead Acute ~09/02/18 Dependence on nocturnal oxygen therapy Chronic History of mitral valve prosthesis Chronic History of tricuspid valve replacement with bioprosthetic valve Chronic Presence of permanent cardiac pacemaker Chronic
--- NOTE | 2018-09-19 08:50 | PDCONSULT ---
Machine Wedger Note: INDICATION FOR CTS CONSULTATION: Recurrent pleural effusion s/p redo TVR REQUESTING PHYSICIAN FOR CONSULTATION: Dr. Cole HISTORY OF PRESENT ILLNESS: This is a pleasant 68F who on 09/02/18 underwent an elective redo median sternotomy, redo TVR w #29 bioprosthesis, explant transvenous RV lead, implant RV epicardial leads x 2 tunneled to existing pacer pocket, and pacer pocket revision who was admitted for recurrent pleural effusion. She was discharged home on 09/10/18 with services. She was volume up (+6kg) and discharged on Demadex 20mg PO BID. She was on Demadex 40mg PO BID in the hospital. She was seen in our clinic on 09/16/18 with CXR demonstrating left pleural effusion and her Demadex was increased to 40mg POD BID. This underwent left thoracentesis with successful removal of 500cc. She was doing well until yesterday until she developed worsening dyspnea at rest. Her SpO2 sats were decreasing into the mid- 80s. She was instructed to go to the ED with workup demonstrating recurrent left pleural effusion, pulmonary edema, and chronic diastolic CHF with acute exacerbation. + orthopnea, abd fullness, edema. PAST MEDICAL HISTORY: rheumatic heart disease, mitral/tricuspid valve disease PAST SURGICAL HISTORY: 2011 - right thoracotomy, MVRepair/TVReplacement/RADHA 2012 - redo sternotomy, redo MVReplacement 2013 - PPM FAMILY HISTORY: noncontributory SOCIAL HISTORY: no tobacco, rare EtOH MEDICATIONS: reviewed in [employer]Datatel, med rec per Hospital Med REVIEW OF SYSTEMS: 2-9 ROS performed and otherwise negative unless stated in the HPI PHYSICAL EXAMINATION: GENERAL APPEARANCE: NAD, sitting upright HEENT: Head is normocephalic. Lips and tongue are pink and moist with no signs of cyanosis. Conjunctivae pink. RESPIRATORY: No audible wheezes. No Accessory muscle use. No intercostal muscle retraction noted. Decreased BS at left base. CARDIAC: Regular rate, regular rhythm, S1, S2, +2 peripheral edema ABDOMEN: Soft, nontender SKIN: [place], warm, dry, no cyanosis, no clubbing STERNOTOMY: CDI, no instability LABORATORY STUDIES: INR 2.42; Na 134; BUN 27; Cr 0.9; Trop I 0.141; BNP 3820; Hct 27.8 DIAGNOSTICS: CT Angio Chest W IV Contrast Impression: 1. Negative for acute pulmonary embolus. 2. Interval development of a loculated small right pleural effusion and moderate left pleural effusion with bilateral patchy airspace opacities, probably representing multifocal pneumonia with superimposed edema. 3. Focus of decreased density in the lower right internal jugular vein which may represent small thrombus. 4. Left lower lobe pulmonary nodules measuring up to 5.5 mm. Would consider 12 month follow-up chest CT patient is at high risk. ASSESSMENT: Recurrent pleural effusions L>R S/p redo sternotomy, redo TVR S/p implant RV epicardial leads x2 S/p PPM revision, pacer-dependent Bioprosthetic mitral valve Short-term anticoagulation for 2 months, target INR 2-3 Anemia of chronic disease Demand ischemia from CHF PLAN: D/w Dr. Santoyo. Please reference his SOAP note. IR left thoracentesis today (ordered), likely pleurodesis in near future Continue aggressive IV diuresis and titrate as needed (if suboptimal response to Lasix --> Demadex) Continue sternal precautions x2 weeks (ordered) Continue Nystatin powder for thrush Expect anemia to improve after diuresis Strict fluid restriction 1.5L (ordered)
[2018-09-19] MEDS: FUROSEMIDE 40 MG/4 ML VIAL IVP SCH ×2 (08:59→17:16)
--- NOTE | 2018-09-19 09:44 | ASMTCMCOM ---
CM Note CM Note Notes: Patient admitted w CHF exacerbation. She is s/p tricuspid valve replacement and pacemaker implantation 09/02. She discharged home with her after this with no services. She will have a thoracentesis today for her pleural effusion. IV Lasix, as well. No d/c needs anticipated; Case Management available if this changes. Date Signed: 09/19/2018 09:43 AM Electronically Signed By:Jane Johnson RN
--- NOTE | 2018-09-19 13:26 | ECHO ---
[email or web address] [address] [address] Main: [phone] Echocardiography Examination Transthoracic Name: KRISTIE TOBIAS MR#: [id number] Study Date: 09/19/2018 Study Time: 07:58 AM Date of : 1950 Age: 68 year(s) Height: 157.5 cm (62 in.) Weight: 62.6 kg (138 lb.) BSA: 1.63 m2 Gender: Female Examination: Echo Contrast: Image Quality: Adequate Rhythm: Pacemaker rhythm Heart Rate: 93 bpm BP: 118 mmHg/57 mmHg Indication: heart failure; s/p TVR; h/o MVR Procedure Staff Referring Physician: Curator [employer]: Nandini Padilla [facility] Reading Physician: Rene Pappas MD Requesting Provider: Ordering Physician: Marco A Cole Indication: heart failure; s/p TVR; h/o MVR Measurements Chambers AV/MV Label Value Normal Value Label Value Normal Value LVOT Vmax 0.72 m/s (0.7m/s - 1.1m/s) AV PGmax 6 mmHg LVOTd 2 cm (1.8cm - 2cm) AV Vmax 1.25 m/s LVDd, 2D 3.6 cm (3.9cm - 5.3cm) SHERMAN (Vmax) 1.8 cm2 LVDs, 2D 2.2 cm (2.1cm - 4cm) MV VTI 43.7 cm IVSd, 2D 0.8 cm (0.6cm - 1.1cm) MV PGmax 20 mmHg LVPWd, 2D 0.8 cm MV PGmean 8 mmHg LVEF, BP 65 % (55% - 70%) MV PHT 0.08 s LVEF, 2D 71 % (54% - 74%) MVA PHT 2.8 cm2 RVDd, 2D 4.5 cm (1.9cm - 3.8cm) MV PHT 79 ms TAPSE 1.1 cm TV/PV LA Volume, BP 37 ml (22ml - 52ml) Label Value Normal Value LAESV index, BP 22.7 ml/m2 RA Pressure 15 mmHg RA Area 19 cm2 RVSP 54 mmHg Additional Vessels TR Pmax 39 mmHg Label Value Normal Value TR Vmax 3.11 m/s AoAsc 3 cm TV PGmax 12 mmHg AoRoot, 2D 3.1 cm (1.4cm - 2.6cm) TV PGmean 6 mmHg TV Vmax 1.7 m/s (0.3m/s - 0.7m/s) TV Vmax, Caliper 1.7 m/s (0.3m/s - 0.7m/s) Patient: KRISTIE TOBIAS Study Date: 09/19/2018 Page 1 of 3 07:58 AM TV Vmean 1.13 m/s TV VTI 31.7 cm PV PGmax 4 mmHg PV Vmax, Caliper 1 m/s (0.6m/s - 0.9m/s) Conclusions Technically difficult study with relatively poor echo windows (1) Left ventricular systolic ejection fraction was normal (65%) - no LVH - septal wall motion was consistent with BBB pattern versus pacing (2) Moderate RV dilation with moderate to severe reduction in systolic function - RV pacing/ICD lead was present (3) Normal LA dimensions with mild RA dilation (4) Bioprosthetic mitral valve - mean gradient through the mitral valve was 8 mm Hg (5) Trileaflet aortic valve without appreciable insufficiency or sclerosis (6) Bioprosthetic tricuspid valve with mild TR - mean gradient was 6 mm Hg - RVSP was 54 mm Hg (7) Ascending aorta was 3.0 cm (8) No pericardial effusion (9) In comparison to prior echocardiogram from 09-06-18, no significant changes noted (no mean through the mitral valve was reported). Mild elevation to RVSP is noted (from 43 mm Hg to 54 mm Hg). Findings Left Ventricle: The left ventricle cavity is small. Normal global systolic left ventricular function. EF evaluated by EF (biplane Santana's). The ejection fraction, measured by Simpsons method, is 65 %. EF range is estimated at 60 % - 65 %. Left ventricle wall thickness is normal. There is paradoxic septal motion suggestive of bundle branch block, paced cardiac rhythm, or prior cardiac surgery. Unable to assess Diastolic Dysfunction due to MVR. Right Ventricle: Moderately dilated right ventricle. Moderately to severely reduced RV function. There is a pacing/ICD wire present in the right ventricle. Left Atrium: The left atrium is normal in size. Right Atrium: The right atrium is mildly dilated. A line (catheter or pacing wire) is present in the right atrium. Mitral Valve: A bioprosthetic mitral valve is in place. Trivial MV prosthesis regurgitation. Mitral Valve Measurements MV PGmean is 8 mmHg. Aortic Valve: The aortic valve is structurally normal and trileaflet. No aortic valve regurgitation. There is no aortic stenosis. There is aortic sclerosis present. Tricuspid Valve: A bioprosthesis is present in the tricuspid valve (#29 Hardwick Magna). Mild prosthesis regurgitation. The prosthetic tricuspid valve regurgitation is transvalvular. Right Ventricular systolic pressure is measured at 54 mmHg. Pulmonary artery pressure moderately increased. Tricuspid Valve Measurements TV PGmean is 6 mmHg. Pulmonic Valve: Pulmonic valve is poorly visualized. Mild pulmonic valve regurgitation is present. Aorta: Patient: KRISTIE TOBIAS Study Date: 09/19/2018 Page 2 of 3 07:58 AM The aortic root size in 2D measures 3.1 cm. The aortic root exhibits normal size. The ascending aorta measures 3.0 cm. Ascending aorta is normal in size. Aorta Measurements AoRoot, 2D is 3.1 cm. IVC: The inferior vena cava is dilated. There is less than 50% respiratory excursion. Pericardium: No pericardial effusion. There is a pleural effusion present. Exam Details Procedure Ordered: Echo Procedure Status: Routine study Image Quality: Adequate Facility Location: Cardiac Echo 1 (No Signature Object) Patient: KRISTIE TOBIAS Study Date: 09/19/2018 Page 3 of 3 07:58 AM [id number]
[2018-09-19] MEDS ORDERED: LIDOCAINE 1% 300 MG/30 ML SDV ONE (13:59)
[2018-09-19] MEDS ORDERED: LORazepam 1 MG TAB PO ONE (14:00)
--- NOTE | 2018-09-19 14:09 | HOSPPROG ---
Hospitalist Progress Note Assessment/Plan: 68 yo F w/ recent tricuspid valve replacement and pacemaker revision, diastolic CHF, and dHF presents with HF exacerbation. Plan: Acute on chronic dHF - BNP 3820, CT w/ pulmonary edema and bilateral effusions. Echo reviewed, relatively unchanged from prior. - cont 60 IV Lasix BID - monitor I&O's, daily wts - thoracentesis today per CV surg S/P Tricuspid valve replacement - Underwent revision of bioprosthetic TV by Dr. Eastman 09/02. - Continue warfarin x2 months, goal INR 2-3 - Monitor daily INR - CV surg following Elevated troponin - CP free, likely strain Hx bioprosthetic mitral valve Anemia chronic dz - stable, follow Hyponatremia - Suspect 2/2 hypervolemia - follow with diuresis Diet - Cardiac Code - Full Ppx - warfarin Dispo - Obs Objective: Vital Signs Temp Pulse Resp BP Pulse Ox 36.6 C 84 14 121/60 H 99 09/19/18 10:57 09/19/18 10:57 09/19/18 10:57 09/19/18 10:57 09/19/18 10:57 Laboratory Results 09/19/18 04:08 09/19/18 04:08 09/18/18 09/19/18 09/20/18 05:59 05:59 05:59 Intake Total 150 300 Output Total 450 Balance 150 -150 PT 25.1 SEC (12.0-15.0) H 09/19/18 04:08 INR 2.42 (0.83-1.16) H 09/19/18 04:08 ICD10 Worksheet Patient Problems: Problems Problem Status Onset Chest pain Acute Congestive heart failure Acute Hypoxia Acute Shortness of breath Acute History of tricuspid valve replacement with bioprosthetic valve Chronic Acute blood loss anemia Acute Coagulopathy Acute Prosthetic valve failure Acute S/P tricuspid valve replacement Acute ~09/02/18 s/p explant transvenous RV lead Acute ~09/02/18 s/p placement RV epicardial lead Acute ~09/02/18 Dependence on nocturnal oxygen therapy Chronic History of mitral valve prosthesis Chronic Presence of permanent cardiac pacemaker Chronic
[2018-09-19] MEDS ORDERED: PROTOCOL POTASSIUM 1 DOSE MISC PRN (14:15)
[2018-09-19] MEDS ORDERED: WARFARIN SODIUM 2.5 MG TAB PO SCH (16:00)
[2018-09-19] MEDS: PANTOPRAZOLE SODIUM 40 MG TAB PO SCH (17:08)
[2018-09-19] MEDS: FLUoxetine 20 MG CAP PO SCH (17:13)
--- NOTE | 2018-09-19 20:58 | CPEKG ---
Test Reason : OPEN Blood Pressure : / mmHG Vent. Rate : 080 BPM Atrial Rate : 128 BPM P-R Int : 073 ms QRS Dur : 132 ms QT Int : 446 ms P-R-T Axes : 000 071 267 degrees QTc Int : 515 ms Afib/flut and V-paced complexes Confirmed by Brandi Freed ([id number]) on 09/19/2018 8:57:32 PM Referred By: Kaila De Leon Confirmed By:Brandi Freed
--- NOTE | 2018-09-20 08:15 | SOAPPROG ---
SOAP Progress Note Assessment/Plan: Assessment: POD#18 redo median sternotomy, takedown of adhesions on rt fem-fem CPB, redo TVR#29 bioprosthesis, explant transvenous RV lead, implant RV epicardial leads x 2 tunneled to existing pacer pocket, pacer pocket revision w connection of new RV lead, primary repair rt femoral vessels after decannulation. 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 Antithrombotic prophylaxis with Coumadin, target INR 2-3, duration 2 mo. Valvular cardiomyopathy with acute on chronic rt heart failure - Mod to severe RVSD by echo w difficulty mobilizing postop volume overload. Improved but suboptimal response to IV diuresis. Follow. Chronic hypoxemic respiratory failure - 3 Lpm O2 dependence at night since 2012. Postop needs variable, sensitive to degree of pulm edema. Recurrent left pleural effusion - Also problematic after open heart surgery in 2013. May need pleurodesis. Postoperative anemia - Stable. No evidence pericardial effusion by echo. VTE prophylaxis with SCDs and coumadin. Presence of dual chamber permanent pacemaker - for hx CHB. New epicardial RV lead connected. Lower pacer rate at 70. AF prophylaxis with BB as allowed by BP. Presence of bioprosthetic mitral valve - Function intact. Surveillance per cards. Plan: Cont fluid restriction 1500 ml daily Increase IV lasix to 80 mg BID Add am dose of Zaroxolyn Start Toprol XL tonight Follow serial CXRs Increase activity as tolerated 09/20/18 08:11 Subjective: Feeling a little better. Not as swollen. Less winded up and about. Objective: Vital Signs Temp Pulse Resp BP Pulse Ox 37.1 C 77 18 132/61 H 95 09/20/18 06:57 09/20/18 06:57 09/20/18 06:57 09/20/18 06:57 09/20/18 06:57 Laboratory Results 09/19/18 04:08 09/20/18 03:30 09/19/18 09/20/18 09/21/18 05:59 05:59 05:59 Intake Total 150 1350 Output Total 2050 Balance 150 -700 PT 25.1 SEC (12.0-15.0) H 09/19/18 04:08 INR 2.42 (0.83-1.16) H 09/19/18 04:08 Holding SR Uptrending SBPs Stable suppl O2 req CXR-> inc interstitial edema, tiny bilat pleural effusions, bibasilar atelectasis, no visible left PTX Improved fluid balance Renal fx and INR ok Physical Exam - Physical Exam General Appearance: alert, no apparent distress Respiratory: decreased breath sounds (bilat bases, R > L) Cardiac/Chest: regular rate, rhythm, other (Sternotomy and rt groin incision healing well) Abdomen: non-tender, soft Skin: warm/dry Extremities: swelling (trace dependent) ICD10 Worksheet Patient Problems: Problems Problem Status Onset Chest pain Acute Congestive heart failure Acute Hypoxia Acute Shortness of breath Acute History of tricuspid valve replacement with bioprosthetic valve Chronic Acute blood loss anemia Acute Coagulopathy Acute Prosthetic valve failure Acute S/P tricuspid valve replacement Acute ~09/02/18 s/p explant transvenous RV lead Acute ~09/02/18 s/p placement RV epicardial lead Acute ~09/02/18 Dependence on nocturnal oxygen therapy Chronic History of mitral valve prosthesis Chronic Presence of permanent cardiac pacemaker Chronic
[2018-09-20 08:27] LABS: INR 2.62 (0.83-1.16); PROTIME(PATIENT) 26.7 SEC (12.0-15.0)
[2018-09-20] MEDS ORDERED: POTASSIUM CL 10 MEQ TAB PO ONE ×2 (09:30→19:36)
[2018-09-20] MEDS: CYANO/VITAMIN B12 1000 MCG TAB PO SCH (09:36)
[2018-09-20] MEDS: POTASSIUM CL 20 MEQ TAB PO SCH (09:36)
[2018-09-20] MEDS: FLUoxetine 20 MG CAP PO SCH (09:36)
[2018-09-20] MEDS: PANTOPRAZOLE SODIUM 40 MG TAB PO SCH (09:36)
[2018-09-20] MEDS: METOLAZONE 5 MG TAB PO SCH (09:37)
[2018-09-20] MEDS: FUROSEMIDE 100 MG/10 ML VIAL IVP SCH ×2 (09:38→15:38)
[2018-09-20] MEDS: ASPIRIN EC 81 MG TAB PO SCH (09:38)
[2018-09-20] MEDS: NON-FORMULARY NEW DRUG (Mirabegron [Myrbetriq] 50 MG) PO SCH (10:36)
--- NOTE | 2018-09-20 11:08 | ASMTCMCOM ---
CM Note CM Note Notes: Patient has been receiving home RN/PT services through [facility]. We will re-order upon discharge. Current CM Discharge plan: home w home health Date Signed: 09/20/2018 11:07 AM Electronically Signed By:Jane Johnson RN
[2018-09-20] MEDS: cycloSPORINE 0.05% 30 DROPERETTE/BOX EACHEYE SCH (11:21)
--- NOTE | 2018-09-20 11:58 | PDMN ---
Medical Necessity Medical necessity: Change to IP, as of 09/19/18, per & MCG M-190; los >2 mn for ongoing management of acute on chronic CHF exacerbation w/pulmonary edema & bilateral effusions; requiring further monitoring, IV Lasix & thoracentesis; hx recent valve replacement & pacer revision
[2018-09-20] MEDS ORDERED: SENNOSIDES/DOCUSATE SODIUM TAB PO ONE (13:40)
[2018-09-20] MEDS: OXYCODONE/APAP 5/325 TAB PO PRN ×2 (13:42→20:32)
[2018-09-20] MEDS: SENNOSIDES/DOCUSATE SODIUM TAB PO SCH (14:30)
--- NOTE | 2018-09-20 15:31 | HOSPPROG ---
Hospitalist Progress Note Assessment/Plan: 68 yo F w/ recent tricuspid valve replacement and pacemaker revision, diastolic CHF, and dHF presents with HF exacerbation. Acute on chronic dHF - BNP 3820, CT w/ pulmonary edema and bilateral effusions. Echo reviewed, relatively unchanged from prior. - Discussed with CV surgery today, plan for aggressive diuresis, increase lasix to 80 IV BID, add metolazone. - monitor I&O's, daily wts -clarify dosage of toprol surgery would lke to start. S/P Tricuspid valve replacement - Underwent revision of bioprosthetic TV by Dr. Eastman 09/02. - Continue warfarin x2 months, goal INR 2-3 - Monitor daily INR - CV surg following Elevated troponin - CP free, likely strain Hx bioprosthetic mitral valve Anemia chronic dz - stable, follow Hyponatremia - Suspect 2/2 hypervolemia - follow with diuresis Diet - Cardiac Code - Full Ppx - warfarin Dispo - Inp I reviewed the patients chart, labs, and imaging as she is new to me. Subjective: no complaints today. Objective: Vital Signs Temp Pulse Resp BP Pulse Ox 36.9 C 81 20 118/70 97 09/20/18 15:06 09/20/18 15:06 09/20/18 15:06 09/20/18 15:06 09/20/18 15:06 Laboratory Results 09/20/18 03:30 09/19/18 09/20/18 09/21/18 05:59 05:59 05:59 Intake Total 1050 Output Total 1600 450 Balance -550 -450 PT 26.7 SEC (12.0-15.0) H 09/20/18 07:56 INR 2.62 (0.83-1.16) H 09/20/18 07:56 - Time Spent With Patient Time Spent with Patient: greater than 35 minutes Time Spent with Patient: Greater than 35 minutes spent on this patients care, greater than 50% of time spent counseling, educating, and coordinating care regarding the above mentioned plan. - Physical Exam Constitutional: no apparent distress, appears nourished, not in pain Eyes: PERRL, anicteric sclera, EOMI Ears, Nose, Mouth, Throat: moist mucous membranes, hearing normal, ears appear normal, no oral mucosal ulcers Cardiovascular: regular rate and rhythym, systolic murmur, edema Respiratory: no respiratory distress, inspiratory crackles Gastrointestinal: normoactive bowel sounds, soft, non-tender abdomen, no palpable masses Genitourinary: no bladder fullness, no bladder tenderness, no renal bruits Skin: no rashes or abrasions, no fluctuance, no induration Musculoskeletal: full muscle strength, no muscle tenderness, normal joint ROM Neurologic: AAOx3, sensation intact bilaterally Psychiatric: interacting appropriately, not anxious, not encephalopathic, thought process linear Lymph, Heme, Immunologic: no cervical LAD, no supraclavicular LAD ICD10 Worksheet Patient Problems: Problems Problem Status Onset Chest pain Acute Congestive heart failure Acute Hypoxia Acute Shortness of breath Acute History of tricuspid valve replacement with bioprosthetic valve Chronic Acute blood loss anemia Acute Coagulopathy Acute Prosthetic valve failure Acute S/P tricuspid valve replacement Acute ~09/02/18 s/p explant transvenous RV lead Acute ~09/02/18 s/p placement RV epicardial lead Acute ~09/02/18 Dependence on nocturnal oxygen therapy Chronic History of mitral valve prosthesis Chronic Presence of permanent cardiac pacemaker Chronic
[2018-09-20] MEDS ORDERED: WARFARIN SODIUM 2 MG TAB PO ONE (16:00)
[2018-09-21 04:40] LABS: INR 2.63 (0.83-1.16); PROTIME(PATIENT) 26.8 SEC (12.0-15.0)
[2018-09-21] MEDS ORDERED: POTASSIUM CL 10 MEQ TAB PO ONE ×2 (07:55→19:58)
[2018-09-21] MEDS: METOLAZONE 5 MG TAB PO SCH (08:41)
[2018-09-21] MEDS: cycloSPORINE 0.05% 30 DROPERETTE/BOX EACHEYE SCH (09:18)
[2018-09-21] MEDS: ASPIRIN EC 81 MG TAB PO SCH (09:18)
[2018-09-21] MEDS: CYANO/VITAMIN B12 1000 MCG TAB PO SCH (09:18)
[2018-09-21] MEDS: SENNOSIDES/DOCUSATE SODIUM TAB PO SCH (09:19)
[2018-09-21] MEDS: FUROSEMIDE 100 MG/10 ML VIAL IVP SCH ×2 (09:19→15:38)
[2018-09-21] MEDS: NON-FORMULARY NEW DRUG (Mirabegron [Myrbetriq] 50 MG) PO SCH (09:19)
[2018-09-21] MEDS: FLUoxetine 20 MG CAP PO SCH (09:19)
[2018-09-21] MEDS: PANTOPRAZOLE SODIUM 40 MG TAB PO SCH (09:19)
[2018-09-21] MEDS: POTASSIUM CL 20 MEQ TAB PO SCH (09:19)
--- NOTE | 2018-09-21 09:42 | SOAPPROG ---
SOAP Progress Note Assessment/Plan: Recurrent left pleural effusion - CXR this AM reviewed with Dr. Leslie Torres. Will consider surgical intervention as an outpatient if reaccumulates. Continue aggressive diuresis. Plan for discharge in the next day or two. CTSx to f/u with patient after discharge. Presence of bioprosthetic tricuspid valve - s/p recent replacement for bioprosthetic valve failure w severe TR. Antithrombotic prophylaxis with Coumadin, target INR 2-3, duration 2 mo. Objective: Vital Signs Temp Pulse Resp BP Pulse Ox 36.6 C 86 19 127/63 H 92 09/21/18 07:10 09/21/18 07:10 09/21/18 07:10 09/21/18 07:10 09/21/18 07:10 Laboratory Results 09/21/18 03:50 09/20/18 09/21/18 09/22/18 05:59 05:59 05:59 Intake Total 1050 1800 Output Total 1600 3170 Balance -550 -1370 PT 26.8 SEC (12.0-15.0) H 09/21/18 03:56 INR 2.63 (0.83-1.16) H 09/21/18 03:56 ICD10 Worksheet Patient Problems: Problems Problem Status Onset Chest pain Acute Congestive heart failure Acute Hypoxia Acute Shortness of breath Acute History of tricuspid valve replacement with bioprosthetic valve Chronic Acute blood loss anemia Acute Coagulopathy Acute Prosthetic valve failure Acute S/P tricuspid valve replacement Acute ~09/02/18 s/p explant transvenous RV lead Acute ~09/02/18 s/p placement RV epicardial lead Acute ~09/02/18 Dependence on nocturnal oxygen therapy Chronic History of mitral valve prosthesis Chronic Presence of permanent cardiac pacemaker Chronic
[2018-09-21] MEDS: OXYCODONE/APAP 5/325 TAB PO PRN ×2 (12:58→20:24)
[2018-09-21] MEDS: BENZONATATE 100 MG CAP PO PRN ×2 (13:59→20:24)
--- NOTE | 2018-09-21 14:40 | HOSPPROG ---
Hospitalist Progress Note Assessment/Plan: 68 yo F w/ recent tricuspid valve replacement and pacemaker revision, diastolic CHF, and dHF presents with HF exacerbation. Acute on chronic dHF - BNP 3820, CT w/ pulmonary edema and bilateral effusions.I reviewed her CXR from this am, and it appears mildly improved. Her oxygenation requirement is improved as well, and clinically she feels better. Case discussed [facility] who recommends diuresis today and evaluate in am. - Labs this am reviewed and are stable, continue to monitor for rising creatinine. contraction alkalosis - monitor I&O's, daily wts -clarify dosage of toprol surgery would lke to start. S/P Tricuspid valve replacement - Underwent revision of bioprosthetic TV by Dr. Eastman 09/02. - Continue warfarin x2 months, goal INR 2-3 - Monitor daily INR - CV surg following Elevated troponin - CP free, ecg reviewed no ischemia, likely strain Hx bioprosthetic mitral valve Anemia chronic dz - stable, follow Hyponatremia - Suspect 2/2 hypervolemia - follow with diuresis Diet - Cardiac Code - Full Ppx - warfarin Dispo - Inp I reviewed the patients chart, labs, and imaging as she is new to me. Subjective: feels much better today. less sob, no chest pain. Objective: Vital Signs Temp Pulse Resp BP Pulse Ox 36.6 C 81 10 L 120/50 L 96 09/21/18 12:55 09/21/18 12:55 09/21/18 12:55 09/21/18 12:55 09/21/18 12:55 Laboratory Results 09/21/18 03:50 09/20/18 09/21/18 09/22/18 05:59 05:59 05:59 Intake Total 1050 1800 Output Total 1600 3170 1300 Balance -550 -1370 -1300 PT 26.8 SEC (12.0-15.0) H 09/21/18 03:56 INR 2.63 (0.83-1.16) H 09/21/18 03:56 - Time Spent With Patient Time Spent with Patient: greater than 35 minutes Time Spent with Patient: Greater than 35 minutes spent on this patients care, greater than 50% of time spent counseling, educating, and coordinating care regarding the above mentioned plan. - Physical Exam Constitutional: no apparent distress, appears nourished, not in pain Eyes: PERRL, anicteric sclera, EOMI Ears, Nose, Mouth, Throat: moist mucous membranes, hearing normal, ears appear normal, no oral mucosal ulcers Cardiovascular: regular rate and rhythym, no murmur, rub, or gallop Respiratory: inspiratory crackles Gastrointestinal: normoactive bowel sounds, soft, non-tender abdomen, no palpable masses Genitourinary: no bladder fullness, no bladder tenderness, no renal bruits Skin: no rashes or abrasions, no fluctuance, no induration Musculoskeletal: full muscle strength, no muscle tenderness, normal joint ROM Neurologic: AAOx3, sensation intact bilaterally Psychiatric: interacting appropriately, not anxious, not encephalopathic, thought process linear Lymph, Heme, Immunologic: no cervical LAD, no supraclavicular LAD ICD10 Worksheet Patient Problems: Problems Problem Status Onset Chest pain Acute Congestive heart failure Acute Hypoxia Acute Shortness of breath Acute History of tricuspid valve replacement with bioprosthetic valve Chronic Acute blood loss anemia Acute Coagulopathy Acute Prosthetic valve failure Acute S/P tricuspid valve replacement Acute ~09/02/18 s/p explant transvenous RV lead Acute ~09/02/18 s/p placement RV epicardial lead Acute ~09/02/18 Dependence on nocturnal oxygen therapy Chronic History of mitral valve prosthesis Chronic Presence of permanent cardiac pacemaker Chronic
[2018-09-21] MEDS ORDERED: WARFARIN SODIUM 2 MG TAB PO ONE (16:00)
[2018-09-22 04:42] LABS: INR 2.44 (0.83-1.16); PROTIME(PATIENT) 25.3 SEC (12.0-15.0)
[2018-09-22] MEDS ORDERED: POTASSIUM CL 10 MEQ TAB PO ONE ×2 (07:35→20:45)
--- NOTE | 2018-09-22 08:21 | SOAPPROG ---
SOAP Progress Note Assessment/Plan: Recurrent left pleural effusion - CXR Sunday AM. Will consider surgical intervention if reaccumulates. Switched IV Lasix to PO Demedex today. Continue daily Zaroxolyn as well. Monitor for diuresis response. Plan for discharge home Sunday if CXR stable. CTSx to f/u with patient after discharge. Presence of bioprosthetic tricuspid valve - s/p recent replacement for bioprosthetic valve failure w severe TR. Antithrombotic prophylaxis with Coumadin (daily 2 mg ordered), target INR 2-3, duration 2 mo. Subjective: Pt is worried fluid is reaccumulating in chest. Denies SOB. Objective: Vital Signs Temp Pulse Resp BP Pulse Ox 36.4 C 89 18 113/53 L 97 09/22/18 08:00 09/22/18 08:00 09/22/18 08:00 09/22/18 08:00 09/22/18 08:00 Laboratory Results 09/22/18 03:39 09/21/18 09/22/18 09/23/18 05:59 05:59 05:59 Intake Total 1800 800 Output Total 3170 2600 Balance -1370 -1800 PT 25.3 SEC (12.0-15.0) H 09/22/18 03:39 INR 2.44 (0.83-1.16) H 09/22/18 03:39 Physical Exam - Physical Exam General Appearance: WD/WN, alert, no apparent distress Respiratory: No respiratory distress ICD10 Worksheet Patient Problems: Problems Problem Status Onset Chest pain Acute Congestive heart failure Acute Hypoxia Acute Shortness of breath Acute History of tricuspid valve replacement with bioprosthetic valve Chronic Acute blood loss anemia Acute Coagulopathy Acute Prosthetic valve failure Acute S/P tricuspid valve replacement Acute ~09/02/18 s/p explant transvenous RV lead Acute ~09/02/18 s/p placement RV epicardial lead Acute ~09/02/18 Dependence on nocturnal oxygen therapy Chronic History of mitral valve prosthesis Chronic Presence of permanent cardiac pacemaker Chronic
[2018-09-22] MEDS: CYANO/VITAMIN B12 1000 MCG TAB PO SCH (08:31)
[2018-09-22] MEDS: PANTOPRAZOLE SODIUM 40 MG TAB PO SCH (08:31)
[2018-09-22] MEDS: ASPIRIN EC 81 MG TAB PO SCH (08:31)
[2018-09-22] MEDS: SENNOSIDES/DOCUSATE SODIUM TAB PO SCH (08:31)
[2018-09-22] MEDS: POTASSIUM CL 20 MEQ TAB PO SCH ×2 (08:31→15:17)
[2018-09-22] MEDS: FLUoxetine 20 MG CAP PO SCH (08:31)
[2018-09-22] MEDS: cycloSPORINE 0.05% 30 DROPERETTE/BOX EACHEYE SCH (08:33)
[2018-09-22] MEDS: NON-FORMULARY NEW DRUG (Mirabegron [Myrbetriq] 50 MG) PO SCH (08:35)
[2018-09-22] MEDS: BENZONATATE 100 MG CAP PO PRN (08:45)
[2018-09-22] MEDS: METOLAZONE 5 MG TAB PO SCH (08:45)
[2018-09-22] MEDS: TORSEMIDE 20 MG TAB PO SCH ×2 (08:45→15:17)
[2018-09-22] MEDS: OXYCODONE/APAP 5/325 TAB PO PRN ×2 (12:30→21:14)
[2018-09-22] MEDS: guaiFENesin 200 MG TAB PO PRN ×2 (13:22→21:22)
--- NOTE | 2018-09-22 13:42 | HOSPPROG ---
Hospitalist Progress Note Assessment/Plan: 68 yo F w/ recent tricuspid valve replacement and pacemaker revision, diastolic CHF, and dHF presents with HF exacerbation. Acute on chronic dHF - BNP 3820, CT w/ pulmonary edema and bilateral effusions. oxygen req up overnight, and patient feels worse. - Labs this am reviewed and are stable, continue to monitor for rising creatinine. contraction alkalosis - monitor I&O's, daily wts -per CV surgery change to PO demedex this am -repeat CXR in am S/P Tricuspid valve replacement - Underwent revision of bioprosthetic TV by Dr. Eastman 09/02. - Continue warfarin x2 months, goal INR 2-3 - Monitor daily INR, todays INR is 2.4, - CV surg following Elevated troponin - CP free, ecg reviewed no ischemia, likely strain Hx bioprosthetic mitral valve Anemia chronic dz - stable, follow Hyponatremia - Suspect 2/2 hypervolemia, still mildly low. cont diuresis. -Monitor Diet - Cardiac Code - Full Ppx - warfarin Dispo - Inp Subjective: feels breathing is worse today. feels her lung is filling back up. Objective: Vital Signs Temp Pulse Resp BP Pulse Ox 36.5 C 85 20 131/56 H 99 09/22/18 11:49 09/22/18 11:49 09/22/18 11:49 09/22/18 11:49 09/22/18 11:49 Laboratory Results 09/22/18 03:44 09/21/18 09/22/18 09/23/18 05:59 05:59 05:59 Intake Total 1800 800 Output Total 3170 2600 700 Balance -1370 -1800 -700 PT 25.3 SEC (12.0-15.0) H 09/22/18 03:39 INR 2.44 (0.83-1.16) H 09/22/18 03:39 - Physical Exam Constitutional: no apparent distress, appears nourished, not in pain Eyes: PERRL, anicteric sclera, EOMI Ears, Nose, Mouth, Throat: moist mucous membranes, hearing normal, ears appear normal, no oral mucosal ulcers Cardiovascular: regular rate and rhythym, no murmur, rub, or gallop Respiratory: no respiratory distress, no rales or rhonchi, clear to auscultation Gastrointestinal: normoactive bowel sounds, soft, non-tender abdomen, no palpable masses Genitourinary: no bladder fullness, no bladder tenderness, no renal bruits Skin: no rashes or abrasions, no fluctuance, no induration Musculoskeletal: full muscle strength, no muscle tenderness, normal joint ROM Neurologic: AAOx3, sensation intact bilaterally Psychiatric: interacting appropriately, not anxious, not encephalopathic, thought process linear Lymph, Heme, Immunologic: no cervical LAD, no supraclavicular LAD ICD10 Worksheet Patient Problems: Problems Problem Status Onset Chest pain Acute Congestive heart failure Acute Hypoxia Acute Shortness of breath Acute History of tricuspid valve replacement with bioprosthetic valve Chronic Acute blood loss anemia Acute Coagulopathy Acute Prosthetic valve failure Acute S/P tricuspid valve replacement Acute ~09/02/18 s/p explant transvenous RV lead Acute ~09/02/18 s/p placement RV epicardial lead Acute ~09/02/18 Dependence on nocturnal oxygen therapy Chronic History of mitral valve prosthesis Chronic Presence of permanent cardiac pacemaker Chronic
[2018-09-22] MEDS: WARFARIN SODIUM 2 MG TAB PO SCH (15:17)
[2018-09-23 04:33] LABS: INR 2.34 (0.83-1.16); PROTIME(PATIENT) 24.5 SEC (12.0-15.0)
[2018-09-23] MEDS ORDERED: POTASSIUM CL 20 MEQ TAB PO ONE (07:04)
[2018-09-23] MEDS ORDERED: POTASSIUM CL 20 MEQ TAB PO STA (07:05)
[2018-09-23] MEDS: ASPIRIN EC 81 MG TAB PO SCH (09:08)
[2018-09-23] MEDS: TORSEMIDE 20 MG TAB PO SCH ×2 (09:08→15:02)
[2018-09-23] MEDS: CYANO/VITAMIN B12 1000 MCG TAB PO SCH (09:08)
[2018-09-23] MEDS: PANTOPRAZOLE SODIUM 40 MG TAB PO SCH (09:08)
[2018-09-23] MEDS: METOLAZONE 5 MG TAB PO SCH (09:08)
[2018-09-23] MEDS: FLUoxetine 20 MG CAP PO SCH (09:08)
[2018-09-23] MEDS: SENNOSIDES/DOCUSATE SODIUM TAB PO SCH (09:08)
[2018-09-23] MEDS: cycloSPORINE 0.05% 30 DROPERETTE/BOX EACHEYE SCH (09:09)
[2018-09-23] MEDS: NON-FORMULARY NEW DRUG (Mirabegron [Myrbetriq] 50 MG) PO SCH (09:10)
--- NOTE | 2018-09-23 09:54 | HOSPPROG ---
Hospitalist Progress Note Assessment/Plan: 68 yo F w/ recent tricuspid valve replacement and pacemaker revision, diastolic CHF, and dHF presents with HF exacerbation. Acute on chronic dHF - BNP 3820, CT w/ pulmonary edema and bilateral effusions. oxygen req up overnight, and patient feels worse. diuresed well outpt lasix quick follow up hypokalemia: po K at home repeat lytes later this week S/P Tricuspid valve replacement - Underwent revision of bioprosthetic TV by Dr. Eastman 09/02. - Continue warfarin x2 months, goal INR 2-3 - Monitor daily INR, todays INR is 2.4, - CV surg following Elevated troponin - CP free, ecg reviewed no ischemia, likely strain Hx bioprosthetic mitral valve Anemia chronic dz - stable, follow Hyponatremia - Suspect 2/2 hypervolemia, still mildly low. cont diuresis. -Monitor Diet - Cardiac Code - Full Ppx - warfarin Dispo home today > 30 minutes Subjective: case d/w tasha tompkins, CT surgery PA. cxr w minimal L pleural effusion (interp by me) Objective: Vital Signs Temp Pulse Resp BP Pulse Ox 36.6 C 83 18 112/59 L 99 09/23/18 08:00 09/23/18 08:00 09/23/18 08:00 09/23/18 08:00 09/23/18 08:00 Laboratory Results 09/23/18 03:56 09/22/18 09/23/18 09/24/18 05:59 05:59 05:59 Intake Total 800 1050 Output Total 2600 3300 Balance -1800 -2250 PT 24.5 SEC (12.0-15.0) H 09/23/18 03:56 INR 2.34 (0.83-1.16) H 09/23/18 03:56 - Physical Exam Constitutional: no apparent distress, appears nourished Eyes: PERRL, anicteric sclera Ears, Nose, Mouth, Throat: moist mucous membranes, hearing normal Cardiovascular: regular rate and rhythym, no murmur, rub, or gallop Respiratory: no respiratory distress, no rales or rhonchi Gastrointestinal: normoactive bowel sounds, soft, non-tender abdomen Genitourinary: No davidson in urethra Skin: warm, normal color Musculoskeletal: full muscle strength Neurologic: AAOx3 ICD10 Worksheet Patient Problems: Problems Problem Status Onset Chest pain Acute Chronic Disease Mgmt/Transitional Care Acute Congestive heart failure Acute Hypoxia Acute Shortness of breath Acute History of tricuspid valve replacement with bioprosthetic valve Chronic Acute blood loss anemia Acute Coagulopathy Acute Prosthetic valve failure Acute S/P tricuspid valve replacement Acute ~09/02/18 s/p explant transvenous RV lead Acute ~09/02/18 s/p placement RV epicardial lead Acute ~09/02/18 Dependence on nocturnal oxygen therapy Chronic History of mitral valve prosthesis Chronic Presence of permanent cardiac pacemaker Chronic
[2018-09-23] MEDS: POTASSIUM CL 20 MEQ TAB PO SCH ×2 (10:07→15:02)
--- NOTE | 2018-09-23 10:07 | PDIAF ---
- Diagnosis Diagnosis: pleural effusion Code Status: Full Code - Medication Management Discharge Medications: electronically signed and located in the Home Medication List. - Orders Services needed: Home Care, Registered Nurse, Physical Therapy Home Care Face to Face: I certify that this patient was under my care and that I had the required [id number] encounter meeting the encounter requirements on the discharge day. My findings support the fact that the patient is homebound as defined in Home Care Face to Face Continued: CMS Chapter 7 Medicare Benefits Manual 30.1.1 , The condition of the patient is such that there exists a normal inability to leave home and consequently, leaving home would require a considerable and taxing effort. - Follow Up Care Current Providers and Referrals: Denice Aguilar MD [Primary Care Provider] - As per Instructions
--- NOTE | 2018-09-23 10:21 | GDS ---
[f rep st] DISCHARGE SUMMARY DISCHARGE DIAGNOSES: 1. Large left pleural effusion. 2. Recent tricuspid valve replacement. This is a redo. Please see admission history and physical by Dr. Marco A Cole. Patient presented on the even ing of the with swelling and shortness of breath. Chest x-ray with a large left pleural effusion . She underwent thoracentesis. She had a history of similarly refractory pleural effusion following her last hospital valve replacement. She was managed on torsemide which was increased to twice anat y. Zaroxolyn was added with good diuresis. On the day of discharge her chest x-ray showed minimal p leural effusion. She was feeling well. She was discharged home on torsemide 40 twice daily and a p. r.n. script for Zaroxolyn to take if she has weight gain greater than 2 pounds. She did have hypokal emia. She received a lot of oral potassium supplementation here. She does take 40 p.o. daily at [facility] and she will have an outpatient followup chem-7 later in the week. /[id number]/MODL
--- NOTE | 2018-09-23 10:45 | ASMTLACE ---
LACE Length of stay for Answers: 4-6 days current admission Acuity / Level of Answers: Yes Care: Did the patient have an inpatient admission? Comorbidities - select Answers: Congestive heart failure all that apply Mild liver or renal disease Other Notes: Tricuspid valve replacement # of Emergency department Answers: 1-2 visits in the last 6 months Score: 13 Date Signed: 09/23/2018 10:43 AM Electronically Signed By:JONAS Balderas
--- NOTE | 2018-09-23 10:47 | ASMTDCNOTE ---
Case Management Discharge Discharge Order Complete? Answers: Yes Patient to Obtain Answers: Independently Medications Transportation Arranged Answers: Family/Friends EMTALA Complete Answers: No Case Management Transport Answers: No Form Complete Faxed Final Orders Answers: Yes Agency/Facility Transfer Answers: Yes Report Printed & Faxed to Receiving Agency Family Notified Answers: No Discharge Comments Notes: Pts case discussed w/ Dr. Roach and Shanna RN. Pt is being d/c'd today. DC orders sent to [facility]. Dionna from [facility] stopped by to visit w/ pt today. CM available for changes. Plan: [facility]; PT, RN Date Signed: 09/23/2018 10:45 AM Electronically Signed By:JONAS Balderas
[2018-09-23 12:23] VITALS: BP 107/54
[2018-09-23] MEDS: WARFARIN SODIUM 2 MG TAB PO SCH (15:02)
--- NOTE | 2018-09-25 14:41 | ASDISCHSUM ---
Discharge Information Plan Status:Home with Home Health Medically Cleared to Leave:09/23/2018 Discharge Date:09/23/2018 03:40 PM CM D/C Disposition:Home, Routine, Self-Care ADT D/C Disposition:[id number] Projected Discharge Date:09/20/2018 11:00 AM Transportation at D/C: Discharge Delay Reason: Follow-Up Date:09/20/2018 11:00 AM Discharge Slot: Final Diagnosis: Placement Information Referral Type:*Home Health Care Services Referral ID:[id number] Provider Name:[facility] ([facility]) Address 1:[address] [address] Address 2: City:[place] Selection Factors: State:[place] Patient Contact Information Contact Name:RAFAT Relationship: Address:[address] [address] City:[facility] Phone: State/Zip Code:[place] [address] Email: Financial Information Financial Class:Medicare Primary Plan Desc:MEDICARE INPATIENT Primary Plan Number:[id number] Secondary Plan Desc:[employer] [facility] Secondary Plan Number:[id number] Assessment Information LACE LACE Length of stay for Answers: 4-6 days current admission Acuity / Level of Answers: Yes Care: Did the patient have an inpatient admission? Comorbidities - select Answers: Congestive heart failure all that apply Mild liver or renal disease Other Notes: Tricuspid valve replacement # of Emergency department Answers: 1-2 visits in the last 6 months Score: 13 Date Signed: 09/23/2018 10:43 AM Electronically Signed By:JONAS Balderas [facility] CM Progress Note CM Note CM Note Notes: Patient admitted w CHF exacerbation. She is s/p tricuspid valve replacement and pacemaker implantation 09/02. She discharged home with her after this with no services. She will have a thoracentesis today for her pleural effusion. IV Lasix, as well. No d/c needs anticipated; Case Management available if this changes. Date Signed: 09/19/2018 09:43 AM Electronically Signed By:Jane Johnson RN [facility] CM Progress Note CM Note CM Note Notes: Patient has been receiving home RN/PT services through [facility]. We will re-order upon discharge. Current CM Discharge plan: home [facility] Date Signed: 09/20/2018 11:07 AM Electronically Signed By:Jane Johnson RN Case Management Discharge Plan Note Case Management Discharge Discharge Order Complete? Answers: Yes Patient to Obtain Answers: Independently Medications Transportation Arranged Answers: Family/Friends EMTALA Complete Answers: No Case Management Transport Answers: No Form Complete Faxed Final Orders Answers: Yes Agency/Facility Transfer Answers: Yes Report Printed & Faxed to Receiving Agency Family Notified Answers: No Discharge Comments Notes: Pts case discussed w/ Dr. Roach and MARCELO Otero. Pt is being d/c'd today. DC orders sent to [facility]. Dionna from [facility] stopped by to visit w/ pt today. CM available for changes. Plan: [facility]; PT, RN Date Signed: 09/23/2018 10:45 AM Electronically Signed By:JONAS Balderas Intervention Information Intervention Type:*Incorrect Registration Date of Service:09/19/2018 12:02 PM Patient Type:Observation Staff Member:MARCELO Roach, Valerie Hours: Discipline: Severity: Comment: Intervention Type:*IM-Signed Date of Service:09/23/2018 10:58 AM Patient Type:Inpatient Staff Member:Rosa Melton Hours: Discipline: Severity: Comment:
--- NOTE | 2018-09-26 15:41 | PQFORM ---
PHYSICIAN QUERY FORM Needs Your Response This query form is being sent to you to assure this patient record is coded properly. Please respond to the question below: DIESEL DINKEY OPERATOR QUESTION: Dear Dr. Roach, Acute on Chronic Diastolic CHF was documented within the H&P and Hospitalist progress notes dated 09/19-09/23. H&P notes "patient admitted for presumed CHF exacerbation." After study, should the diagnosis of "Acute on Chronic Diastolic CHF" be included in the Discharge Summary? __X___Yes No Other more appropriate diagnosis (please specify) Clinically unable to determine Thank you KRISTINA Gong HIM/Coding Dept. INSTRUCTIONS FOR RESPONSE: Answer question by clicking on the "Edit Document" button. Move cursor to area below the stars. When complete, hit "Save." Click on the "Sign" button, then click "Sign" again. Type in your PIN and hit "Enter." MTDD
== END 2018-09-23 15:40 | disposition home health service (06) | DRG 292 ==
LOC: INTOOBSV 09-19 00:22 → F2W 09-19 01:18 → OBSVTOIN 09-19 17:55
PROVIDERS: ADMIT Student in an Organized Health Care Education/Training Program; ATTEND Student in an Organized Health Care Education/Training Program
PROC: 0W9B3ZX Drainage of Left Pleural Cavity, Percutaneous Approach, Diagnostic (ICD-10-PCS; principal; 2018-09-19)
DX: I50.33 Acute on chronic diastolic (congestive) heart failure (principal); J91.8 Pleural effusion in other conditions classified elsewhere; J96.11 Chronic respiratory failure with hypoxia; D64.9 Anemia, unspecified; E87.6 Hypokalemia; Z95.3 Presence of xenogenic heart valve; Z95.0 Presence of cardiac pacemaker
CPT/HCPCS: 84484-ER; 96374; J1940; Q9967

== ENCOUNTER → 2018-09-27 | Outpatient (CLI) | payer OTHER, BC | LOC: FIMAGING 11:50 | PROVIDERS: ATTEND Thoracic Surgery (Cardiothoracic Vascular Surgery) | DX: Z09 Encounter for follow-up examination after completed treatment for conditions other than malignant neoplasm (principal); J90 Pleural effusion, not elsewhere classified; Z98.890 Other specified postprocedural states ==

== ENCOUNTER → 2018-10-31 | Outpatient (CLI) | payer OTHER, BC | LOC: FIMAGING 08:15 ==